=== PATIENT | female | born 1985 | race Caucasian/White ===

== ENCOUNTER → 2022-08-23 16:40 | Outpatient (CLI) | payer BC, SELFPAY ==
--- NOTE | ~2022-08-23 | XR_ITS ---
XR cervical spine 4-5V INDICATION: Cervical brachial syndrome TECHNIQUE: 7 views of the cervical spine. FINDINGS: No prior studies for comparison. The cervical spine is visualized to the cervicothoracic junction. There is no prevertebral soft tiss ue swelling, listhesis, or loss of vertebral body height. Intervertebral disc spaces are normal. Th e osseous central canal is patent. No displaced cervical spine fractures are identified. IMPRESSION: 1. No acute osseous abnormality of the cervical spine. Reviewed, dictated and finalized at location A.
== END ==
DX: M53.1 Cervicobrachial syndrome (principal); M54.2 Cervicalgia
CPT/HCPCS: 72050

== ENCOUNTER 2022-12-16 08:39 | Emergency (ER) | payer BC, SELFPAY ==
[2022-12-16 08:44] VITALS: BP 122/82; PULSE 75; RESP 16; TEMP 36.8; O2SAT 100
--- NOTE | 2022-12-16 09:59 | ED.URI ---
HPI - URI/Sore Throat General Chief Complaint: Upper Respiratory Infection Stated Complaint: Sinus Pain Time Seen by Provider: 12/16/22 09:59 Source: patient, RN notes reviewed and old records reviewed Mode of arrival: ambulatory Limitations: no limitations History of Present Illness HPI Narrative: 37 year old female who presents to [facility] care with complaints of sinus congestion and drainage with increased symptoms for the past 2 day with headache, ears feel full. Patient reports she has had intermittent sinus congestion and drainage since October which will get a little better then gets worse,sinus drainage greenish and yellowish now. Has been using nasal saline and taking Claritin without improveemnt. MD elicited complaint: cough, rhinorrhea, nasal congestion and other (headache) Pertinent past history: asthma (exercise induced) Onset (ago): week(s) (since last of October with increased symptoms past 2 days) Pain scale (0-10): 3 Description of mucous: yellow, green and other Treatments prior to arrival: other (Claritin and saline nasal spray) Related Data Allergies Allergy/AdvReac Type Severity Reaction Status Date / Time Sulfa (Sulfonamide Allergy Intermediate HIVES Verified 12/16/22 08:46 Antibiotics) oxycodone Allergy Mild ITCHING Verified 12/16/22 08:46 Review of Systems Review of Systems: CONSTITUTIONAL: Denies malaise, chills, sweats, or fever. EYES: Denies visual changes, redness, or discharge. ENT: Reports rhinorrhea, congestion, sinus pain, bilateral ear pressure,scratchy throat. CARDIOVASCULAR: Denies chest pain, palpitations, or edema. RESPIRATORY: Reports cough.? Denies dyspnea. GASTROINTESTINAL: Denies abdominal pain, nausea, vomiting, diarrhea SKIN: Denies rash or itching. MUSCULOSKELETAL: Denies myalgia. NEUROLOGIC: reports headache. All systems reviewed & are unremarkable except as noted in HPI and below PMFSH Surgical History Surgical History (Updated 12/18/22 @ 14:18 by Kat Pruett NP) History of ovarian resection wedge resection History of tonsillectomy Hx of cholecystectomy Social History Social History (Updated 12/18/22 @ 14:19 by Kat Pruett NP) Smoking status: Never smoker Alcohol intake: current Alcohol use details: social Substance use: never Gender identity (if verbalized by the patient): Female Comments At time of signature, agree with nursing past medical, surgical, social and family history. There is no relevant family history pertinent to the presenting complaint Exam Narrative: GENERAL: Well-appearing, well-nourished, and in no acute distress. HEAD: Normocephalic EYES: PERRLA, conjunctivae clear ENT: Nares clear, turbinates edematous and erythematous, clear yellow discharge. Mucous membranes moist.facial pressure with headache. TM pearly anderson with dull light reflex bilaterally; no tragal tenderness fullness pressure to ears Oropharynx erythematous without lesions. Tonsils notpresent no throat exudate, no drooling, no hoarseness, no trismus, uvula midline.post nasal drainage NECK: Supple. No lymphadenopathy CHEST: Clear to auscultation, breath sounds equal. No wheezing, rhonchi, rales, or stridor. No respiratory distress, speaks in full sentences.dry cough, SAO2 100% on room air HEART: Regular rate and rhythm. No murmur heard. SKIN: Warm, dry, no rash. NEURO: Alert and oriented x3. PSYCH: Normal mood and affect Course Course Emergency Course: Patient is aware of diagnosis, understands and agrees to treatment plan.? Anticipatory guidance given.? Patient agrees to follow-up as directed and is aware of reasons to seek care at the emergency department. Portions of this record may have been created with voice recognition software Level of Care: Express Care Visit Vital Signs Vital signs: Vital Signs Temperature 36.8 C 12/16/22 08:44 Pulse Rate 75 12/16/22 08:44 Respiratory Rate 16 12/16/22 08:44 Blood Pres
== END 2022-12-16 10:20 | disposition home or self-care (01) ==
PROVIDERS: Emergency Provider Registered Nurse; PCP Physician Assistant
DX: J32.9 Chronic sinusitis, unspecified (principal)
CPT/HCPCS: 99203; G0463

== ENCOUNTER 2023-09-05 15:34 | Outpatient (CLI) | payer BC, SELFPAY ==
--- NOTE | ~2023-09-05 | US_ITS ---
EXAMINATION: US soft tissue LE RT DATE: 09/05/2023 15:51 INDICATION: Right lower lobe nodule of subcutaneous tissue. TECHNIQUE: Multiple grayscale and Doppler ultrasound images of the right lower limb were obtained. COMPARISON: None FINDINGS: There is no abnormal mass in the patient's area of concern in anterior right lower leg. IMPRESSION: 1. No abnormal mass in the patient's area of concern in anterior right lower leg. Reviewed, dictated and finalized at location E. IMPRESSION: 1. No abnormal mass in the patient's area of concern in anterior right lower le g.
== END 2023-09-05 15:35 ==
LOC: MICIMG 15:35
PROVIDERS: PCP Physician Assistant; Visit Provider Physician Assistant
DX: R22.42 Localized swelling, mass and lump, left lower limb (principal)
CPT/HCPCS: 76882

== ENCOUNTER 2023-10-17 12:51 | Outpatient (CLI) | payer BC, SELFPAY ==
--- NOTE | ~2023-10-17 | MR_ITS ---
EXAMINATION: MR lower leg RT wo/w con DATE: 10/17/2023 13:43 INDICATION: Subcutaneous nodule at the left lower leg TECHNIQUE: Magnetic resonance imaging (MRI) of the left lower leg was performed without and with 15 m L Multihance intravenous contrast. A couple markers were placed over the region of concern. Sequence s included axial, sagittal and coronal T1-weighted FSE and fluid sensitive FSE STIR. Precontrast axia l T1-weighted FS FSE and post contrast axial, sagittal and coronal T1-weighted FS FSE were also obtai emerita. The contralateral left lower leg is included on the coronal images. COMPARISON: Ultrasound dated 09/05/2023 FINDINGS: Bone marrow signal is normal throughout. No reactive edema, fracture or pathologic marrow replacing p rocess. There is nonspecific mild increased fluid signal overlying the bilateral gastrocnemius muscle s without abnormal enhancement. Musculature in the bilateral lower legs is otherwise unremarkable wit h no evident atrophy. Neurovascular structures are unremarkable with no evidence of venous thrombosis . A few very small perforating vessels extending through the superficial muscular fascia in the regio n underlying the 2 markers. No abnormal masses, fluid collections or abnormally enhancing lesions rima ntified. IMPRESSION: 1. A few small perforating vessels in the region of reported subcutaneous nodule at the left lower le g . No abnormal masses, fluid collections or abnormal enhancement in the region of concern. 2. Relatively symmetric mild increased fluid signal in the bilateral gastrocnemius muscles which is a n incidental finding in an asymptomatic individual is most likely related to recent exertion. Reviewed, dictated and finalized at location A. ED WALL FOREMAN IMPRESSION: 1. A few small perforating vessels in the region of reported subcutaneous nodul e at the left lower leg . No abnormal masses, fluid collections or abnormal enh ancement in the region of concern. 2. Relatively symmetric mild increased fluid signal in the bilateral gastrocnem ius muscles which is an incidental finding in an asymptomatic individual is mos t likely related to recent exertion.
== END 2023-10-17 12:52 ==
PROVIDERS: PCP Physician Assistant; Visit Provider Physician Assistant
DX: R22.42 Localized swelling, mass and lump, left lower limb (principal)
CPT/HCPCS: 73720; A9577

== ENCOUNTER → 2023-12-02 13:50 | Outpatient (CLI) | payer BC, SELFPAY ==
--- NOTE | ~2023-12-02 | US_ITS ---
EXAMINATION: US pelvic complete DATE: INDICATION: Pelvic pain TECHNIQUE: Multiple transabdominal sonographic images of the pelvis were obtained. COMPARISON: None. FINDINGS: Uterus: 10.2 x 4.1 x 5.2 cm. Endometrial complex measures 4 mm. Right Ovary: 2.9 x 1.5 x 2.8 cm. Vascular flow is present. No adnexal mass. Left Ovary: 2.5 x 1.4 x 1.5 cm. Vascular flow is present. No adnexal mass. There is no free fluid in the pelvis. IMPRESSION: Normal transabdominal pelvic sonogram findings. Reviewed, dictated and finalized at location K. PHONE COIN BOX COLLECTOR
== END ==
PROVIDERS: PCP Nurse Practitioner; Visit Provider Nurse Practitioner
DX: R10.2 Pelvic and perineal pain (principal)
CPT/HCPCS: 76856

== ENCOUNTER 2025-01-31 15:14 | Outpatient (CLI) | payer BC, SELFPAY ==
--- NOTE | ~2025-01-31 | US_ITS ---
EXAMINATION: US thyroid DATE: 01/31/2025 15:33 INDICATION: Abnormal thyroid function tests. Thyroid antibodies. TECHNIQUE: Multiple ultrasound images of the thyroid were obtained. COMPARISON: None. FINDINGS: The right thyroid lobe measures 5.3 x 1.5 x 1.5 cm. The left thyroid lobe measures 4.7 x 1 0.5, 0.7 cm. In the right thyroid lobe, there is an 8 mm mixed cystic and solid, hyperechoic, wider than tall nodule with smooth margin without echogenic foci (TI-RADS TR2). In the left thyroid lobe, there is a 6 mm mixed cystic and solid, hypoechoic, wider than tall nodule with smooth margin and macrocalcific ation (TR4). IMPRESSION: 1. Small thyroid nodules, likely not clinically significant. No follow-up is needed. Reviewed, dictated and finalized at location B. IMPRESSION: 1. Small thyroid nodules, likely not clinically significant. No follow-up is ne eded.
== END 2025-01-31 15:15 | disposition home or self-care (01) ==
PROVIDERS: PCP Physician Assistant; Visit Provider Physician Assistant
DX: E07.81 Sick-euthyroid syndrome (principal); E04.2 Nontoxic multinodular goiter
CPT/HCPCS: 76536

== ENCOUNTER 2025-05-01 09:22 | Outpatient (CLI) | payer BC, SELFPAY ==
--- NOTE | ~2025-05-01 | MM_ITS ---
EXAMINATION: MM screening jonnie BI w sylwia HISTORY: Screening TECHNIQUE: Craniocaudal and mediolateral oblique 3-D tomosynthesis images were obtained and synthetic 2-D images were generated. CAD analysis was submitted and interpreted. COMPARISON: No prior mammogram is available for comparison at this institution. BREAST PARENCHYMAL COMPOSITION: Not dense: There are scattered areas of fibroglandular density. FINDINGS: There is a focal asymmetry superiorly in the right breast on MLO view, not appreciated on C C image. There are no suspicious masses, calcifications or architectural distortion in the left breas t to suggest malignancy. IMPRESSION: 1. Focal right breast asymmetry superiorly on MLO view. 2. Additional mammographic views and possible breast ultrasound are recommended. BI-RADS Category 0: Incomplete: Needs additional imaging evaluation. Reviewed, dictated and finalized at location [] IMPRESSION: 1. Focal right breast asymmetry superiorly on MLO view. 2. Additional mammographic views and possible breast ultrasound are recommended . BI-RADS Category 0: Incomplete: Needs additional imaging evaluation.
--- OUTSIDE RECORDS SUMMARY | 2025-05-01 10:13 | XMS_ITS | Clinical Summary ---
Author Organization [facility] Address [address] [place] [address] Phone Care Team Providers Care Seasoning Mixer Name Role Phone Maye Chen Primary Care Provider Allergies Active Allergy Reactions Criticality Noted Date Comments Oxycodone Itching Low 02/06/2018 Sulfasalazine Hives High 03/03/2016 Medications raNITIdine (ZANTAC) 150 mg tablet Take 150 mg by mouth every 12 hours. 6 7 Active ergocalciferol (VITAMIN D2) 50,000 unit capsule Take 50,000 Units by mouth every 7 days . 3 7 Active LEVOTHYROXINE 25 mcg tabletIndications:S ubclinical hypothyroidism TAKE 1 TABLET(25 MCG) BY MOUTH DAILY BOTTOM HOOP DRIVER 30 Tablet 8 Active Active Problems No known active problems Family History Medical History Relation Name Comments Diabetes Maternal Grandmother type II Heart Disease Maternal Grandmother Stroke Paternal Grandfather Breast Cancer Neg Hx Colon Cancer Neg Hx Ovarian Cancer Neg Hx Uterine Cancer Neg Hx Relation Name Status Comments Maternal Grandmother Paternal Grandfather Social History Tobacco Use Types Packs/Day Years Used Date Smoking Tobacco: Never Smokeless Tobacco: Never Alcohol Use Standard Drinks/Week Comments No 0 (1 standard drink = 0.6 oz pur e alcohol) Comments No Sex and Gender Information Value Date Recorded Sex Assigned at Not on file Legal Sex Female 4:21 PM ARMY RANGER Gender Identity Not on file Sexual Orientation Not on file Last Filed Vital Signs Vital Sign Reading Time Taken Comments Blood Pressure 118/80 10/01/2019 10:23 AM ARMY RANGER Pulse 93 08/27/2019 1:54 PM CDT Temperature 36.6 C (97.9 F) 08/27/2019 1:36 PM CDT Respiratory Rate 17 08/27/2019 1:54 PM CDT Oxygen Saturation 98% 08/27/2019 1:54 PM CDT Inhaled Oxygen Concentration - - Weight 83.5 kg (184 lb) 10/01/2019 10:23 AM ARMY RANGER Height 165.1 cm (5' 5) 10/01/2019 10:23 AM ARMY RANGER Body Mass Index 30.62 10/01/2019 10:23 AM ARMY RANGER Plan of Treatment Health Maintenance Due Date Last Done Comments DTAP/TDAP/TD VACCINES (1 - Tdap) 2004 HEPATITIS B VACCINES (1 of 3 - 19+ 3-dose series) 2004 HPV/Cotest (21-29) 2006 CERVICAL CANCER SCREENING 2015 HPV/Cotest (30-65) 2015 PAP SMEAR 2015 INFLUENZA VACCINE (#1) 2024 BREAST CANCER SCREENING 2025 HPV VACCINES Aged Out No longer eligi ble based on patient's age to complete this topic Medical Devices Implanted Type Area Handle Assembler Device Identifier Shelf Expiration Date Model / Serial / Lot Barrier Seprafilm 5x6in [id number] - [id number] Implanted:Qty : 1 on 02/10/2018 by Farhad Burks MD at [facility] Adhesion Barrier N/A: Abdomen [employer] [id number] 12/21/2019 [id number] / / [id number] Description:soaked in 200ml of saline and 100mg solu-cortef Insurance BS BLUE ACCESS/TRUE BLUE PPO RX [employer] Member Subscriber Plan / Payer (Ef fective for All Dates) Name:Odalys Raymond Relation to Subscriber:Self Name:Odalys Raymond Subscriber ID:Not on file Payer ID:Not on file Group ID:[id number] Type:RX Commercial Address: [address] Advance Directives For more information, please contact: [phone] * Full Code (Latest Code Status on File) Date Activated Date Inactivated Comments 08/27/2019 1:35 PM 08/27/2019 4:14 PM * Full Code Date Activated Date Inactivated Comments 02/10/2018 4:26 PM 02/11/2018 5:34 AM * Full Code Date Activated Date Inactivated Comments 02/10/2018 10:48 AM 02/10/2018 4:26 PM Care Teams Seasoning Mixer Relationship Specialty Start Date End Date Maye Chen PA PCP - General Physician Frame Expander 12/26/17
--- OUTSIDE RECORDS SUMMARY | 2025-05-01 10:13 | XMS_ITS | Referral Summary ---
Author Organization [facility] Address [address] [place] [address] Care Team Providers Care Riprap Man Name Role Phone Maye Chen Primary Care Pr ovider Allergies Active Allergy Reactions Criticality Noted Date Comments Sulfa (Sulfonamide Antibiotics) Hives Reaction: HIVES, Medications lisdexamfetamin e (VYVANSE) 30 mg capsule Take 1 capsule (30 mg total) by mouth every morning Active Active Problems Problem Noted Date Diagnosed Date Lump of skin of right lower extremity 12/21/2023 Assessment & Plan (12/21/2023 9:[address] SWEEPER OPERATOR): Small bumps or lumps can be palpated under the skin along the bony prominence of the right anterior woodard can also be felt although smaller to the left anterior woodard. These are asymptomatic. Patient has no medical history concerning of cancer DVT or blood clotting disorders other than her lipoprotein deficiency disorder. Not concern for any lipoma or dermoid. This is likely patient's anatomy and no concerns at this time. Previous MRI and follow-up with orthopedics has also yielded negative results. Plan: Follow-up as needed. 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 Overview (02/24/2017): Lipoprotein deficiency Social History Tobacco Use Types Packs/Day Years Used Date Smoking Tobacco: Never Alcohol Use Standard Drinks/Week Comments No 0 (1 standard drink = 0.6 oz pur e alcohol) Comments Unknown Sex and Gender Information Value Date Recorded Sex Assigned at Not on file Legal Sex Female 11:[address] SWEEPER OPERATOR Gender Identity Not on file Sexual Orientation Not on file Last Filed Vital Signs Vital Sign Reading Time Taken Comments Blood Pressure 127/93 12/21/2023 8:[address] SWEEPER OPERATOR Pulse 87 12/21/2023 8:[address] SWEEPER OPERATOR Temperature - - Respiratory Rate - - Oxygen Saturation 100% 12/21/2023 8:[address] SWEEPER OPERATOR Inhaled Oxygen Concentration - - Weight 82.1 kg (181 lb) 08/24/2017 10:35 AM CDT Height 165.1 cm (5' 5) 08/24/2017 10:35 AM CDT Body Mass Index 30.12 08/24/2017 10:35 AM CDT Plan of Treatment Not on file Insurance [email or web address] [place] [email or web address] [place] Care Teams Riprap Man Relationship Specialty Start Date End Date Maye Chen PA PCP - General 07/23/17
--- OUTSIDE RECORDS SUMMARY | 2025-05-01 10:13 | XMS_ITS | Clinical Summary ---
Author Organization [facility] Address [address] [place] [address] Care Team Providers Care Financial Systems Administrator Name Role Phone Maye Chen Primary Care Pr ovider Allergies Active Allergy Reactions Criticality Noted Date Comments Sulfa (Sulfonamide Antibiotics) Hives Reaction: HIVES, Medications lisdexamfetamin e (VYVANSE) 30 mg capsule Take 1 capsule (30 mg total) by mouth every morning Active Active Problems Problem Noted Date Diagnosed Date Lump of skin of right lower extremity 12/21/2023 Assessment & Plan (12/21/2023 9:06 AM ELECTRIC TAPE SLITTER): Small bumps or lumps can be palpated [...] deficiency disorder 06/19/2012 Overview (02/24/2017): Lipoprotein deficiency Surgical History Surgery Date Site/Laterality Comments TONSILLECTOMY 1995 Tonsillectomy TONSILLECTOMY 1994 Tonsillectomy [place] TONSILLECTOMY & ADENOIDEC MAIK <AGE 12 Tonsillectomy With Adenoidectomy - 1995 (Added by TW Conv) [place] CHOLECYSTECTOMY Cholecystectomy - laparascopic [facility], 03/2016 (Added by TW Conv) Medical History Medical History Date Comments Asthma 1999 Asthma Hx Other Medical Well Woman Family History Medical History Relation Name Comments Hyperlipidemia Father 2 Hyperlipidemi a; Liver cancer Maternal Grandfather 2 Cance r -liver; Cause of : Cancer -liver Diabetes Maternal Grandmother 2 Diabe olvin mellitus; Heart failure Maternal Grandmother 2 Mateo estive heart failure; Hypertension Maternal Grandmother 2 Hyper tension; Other Maternal Grandmother 2 hear t; Cause of : heart Other Mother 2 spells of shake s, sweats; Diabetes type II Other 1 Family hist ory of type 2 diabetes mellitus - Relation: Grandmother (Added by TW Conv) Heart disease Other 1 Family history of cardiac disorder - Relation: Grandmother (Added by TW Conv) Hypertension Other 1 Family history of hypertension - Relation: Grandmother (Added by TW Conv) Heart disease Other 2 Family history of cardiac disorder - Relation: Aunt (Added by TW Conv) Hypertension Other 2 Family history of hypertension - Relation: Aunt (Added by TW Conv) Hypertension Other 3 Family history of hypertension - Relation: Uncle (Added by TW Conv) Other Paternal Grandfather 2 had a slight stroke; Other Paternal Grandmother 2 hear t problems; Relation Name Status Comments Father 1 Alive Father 2 Maternal Grandfather 1 (Age 78) Maternal Grandfather 2 Maternal Grandmother 1 (Age 86) Maternal Grandmother 2 Mother 1 Alive Mother 2 Other 1 Other 2 Other 3 Paternal Grandfather 1 Alive Paternal Grandfather 2 Paternal Grandmother 1 Alive Paternal Grandmother 2 Social History Tobacco Use Types Packs/Day Years Used Date Smoking Tobacco: Never Alcohol Use Standard Drinks/Week Comments No 0 (1 standard drink = 0.6 oz pur e alcohol) Comments Unknown Sex and Gender Information Value Date Recorded Sex Assigned at Not on file Legal Sex Female 11:58 AM ELECTRIC TAPE SLITTER Gender Identity Not on file Sexual Orientation Not on file Obstetrics History Last Filed Vital Signs Vital Sign Reading Time Taken Comments Blood Pressure 127/93 12/21/2023 8:51 AM ELECTRIC TAPE SLITTER Pulse 87 12/21/2023 8:51 AM ELECTRIC TAPE SLITTER Temperature - - Respiratory Rate - - Oxygen Saturation 100% 12/21/2023 8:51 AM ELECTRIC TAPE SLITTER Inhaled Oxygen Concentration - - Weight 82.1 kg (181 lb) 08/24/2017 10:35 AM CDT Height 165.1 cm (5' 5) 08/24/2017 10:35 AM CDT Body Mass Index 30.12 08/24/2017 10:35 AM CDT Plan of Treatment Health Maintenance Due Date Last Done Comments Breast Cancer Screening-Mammogram 1985 Cervical Cancer Screening 1985 Depression Screening 1985 Hepatitis C Screening 1985 Varicella Vaccines (1 of 2 - 13+ 2-dose series) 1998 Hepatitis B Screening 2003 Regular Well Visit/Exam 18-64 2003 DTaP/Tdap/Td Vaccine (2 - Td or Tdap) 11/21/2020 11/21/2010 Influenza Vaccine (Season Ended) 2025 HPV Vaccines Aged Out No longer eligi ble based on patient's age to complete this topic Pneumococcal vaccine <65 Aged Out No longer eligible based on patient's age to complete this topic Insurance [facility] Care Teams Financial Systems Administrator Relationship Specialty Start Date End Date Maye Chen PA PCP - General 07/23/17
--- OUTSIDE RECORDS SUMMARY | 2025-05-01 10:14 | XMS_ITS | Data Portability ---
Author Organization [facility] Kathia Address [address] [facility] [place] [address] Care Team Providers Care Hassock Maker Name Role Phone ABRIL PETER OTHER RONEY GREEN Primary Care Provider Assessment No assessment recorded. Plan of Treatment Reminders Order Date Submit Date Provider Last Modified By Organization Details Last Modified Time Details Appointments VIDEO VISIT 15 2024 01:15P SELENE Arreguin Not available Not available Not available Lab progester one, serum 2024 025 OLY [facility], [address], [place], [address], 12/13/2024 09:09:16 estrogen, total, serum 2024 025 OYL [facility], [address], [place], [address], 12/13/2024 09:09:17 testoster one, total, serum 2024 025 OLY [facility], [address], [place], [address], 12/13/2024 09:09:15 whole egg ige, serum 2024 025 OLY [facility], [address], [place], [address], 12/13/2024 09:09:14 TSH + free T4, serum 2024 025 OLY [facility], [address], [place], [address], 12/13/2024 09:09:12 T3, free, serum or plasma 2024 025 OLYFABIANO [facility], [address], [place], [address], 12/13/2024 09:09:20 thyropero xidase Ab, serum 2024 025 OLY [facility], [address], [place], [address], 12/13/2024 09:09:18 iron + TIBC + ferritin, serum 2023 024 OLY Lang, [address], [place], [address], 10/03/2024 06:37:44 vitamin D, 25-hydrox y, total, serum 2023 024 OLY Lang, [address], [place], [address], 10/03/2024 06:37:45 TSH + free T4, serum 2023 024 OLY Lang, [address], [place], [address], 10/03/2024 06:37:38 CMP, serum or plasma 2023 024 OLY Lang, [address], [place], [address], 10/03/2024 06:37:39 CBC w/ auto diff 2023 024 OLYFABIANO Lang, [address], [place], [address], 10/03/2024 06:37:43 vitamin B12 + folate, serum or blood 2023 024 OLY [facility], [address], [place], [address], 10/03/2024 06:37:40 HbA1c (hemoglob in A1c), blood 2023 024 OLY [facility], [address], [place], [address], 10/03/2024 06:37:42 lipid panel, serum 2023 024 OLY [facility], [address], [place], [address], 10/03/2024 06:37:37 Referral None recorded. Procedures None recorded. Surgeries None recorded. Imaging None recorded. Medication Orders Vyvanse 30 mg capsule 2023 024 [id number], [address], [place], [place], [id number], 09/17/2024 09:35:31 Vyvanse 30 mg capsule 2023 024 [email or web address] #[id number], [address], [place], [place], [id number], 09/17/2024 09:35:31 Patient TargetsNo targets recorded. Patient Instructions Encounter Date Encounter Id Patient Instructions Last Modified By Organization Details Last Modified Time 08/29/2024 [id number] A healthy lifestyle: care instructions [email or web address] Not available 08/29/2024 17:30:51 Reason for Referral None Reported. Results Created Date Observation Date Name Description Value Unit Range Abnormal Flag Note LastModifiedBy Organization Detail LastModifiedTime 10/01/20 24 10/02/2024 LIPID PANEL W/ CHOL/ HDL RATIO cholesterol, total 215 mg/dL 100-19 9 above high normal Not Available [facility] ([facility]) [address] [facility], [place], [address], 10/03/2024 06:37:37 10/01/20 24 10/02/2024 LIPID PANEL W/ CHOL/ HDL RATIO triglyceride s 152 mg/dL 0-149 above high normal Not Available [facility] ([facility]) [address] [place], [address], 10/03/2024 06:37:37 10/01/20 24 10/02/2024 LIPID PANEL W/ CHOL/ HDL RATIO HDL cholesterol 44 mg/dL >39 Not Available [facility] ([facility]) [address] [place], [address], 10/03/2024 06:37:37 10/01/20 24 10/02/2024 LIPID PANEL W/ CHOL/ HDL RATIO VLDL cholesterol shannan 27 mg/dL 5-40 Not Available [facility] ([facility]) [address] [place], [address], 10/03/2024 06:37:37 10/01/20 24 10/02/2024 LIPID PANEL W/ CHOL/ HDL RATIO LDL chol calc ([facility]) 144 mg/dL 0-99 above high normal Not Available [facility] ([facility]) [address] [place], [address], 10/03/2024 06:37:37 10/01/20 24 10/02/2024 LIPID PANEL W/ CHOL/ HDL RATIO T. chol/HDL ratio 4.9 ratio 0.0-4. 4 above high normal T. Chol/ HDL Ratio Men Women 1/2 Avg.R isk 3.4 3.3 Avg.R isk 5.0 4.4 2X Avg.R isk 9.6 7.1 3X Avg.R isk 23.4 11.0 Not Available [facility] ([facility]) [address] [place], [address], 10/03/2024 06:37:37 10/01/20 24 10/02/2024 TSH+F REE T4 TSH 2.710 uIU/m L 0.450- 4.500 Not Available [facility] ([facility]) [address] [place], [address], 10/03/2024 06:37:38 10/01/20 24 10/02/2024 TSH+F REE T4 T4,free(dire ct) 0.95 NG/dL 0.82-1 .77 Not Available [facility] ([facility]) [address] [place], [address], 10/03/2024 06:37:38 10/01/20 24 10/02/2024 COMP. METAB OLIC PANEL (14) glucose 83 mg/dL 70-99 Not Available [facility] ([facility]) [address] [place], [address], 10/03/2024 06:37:39 10/01/20 24 10/02/2024 COMP. METAB OLIC PANEL (14) BUN 8 mg/dL 6-20 Not Available [facility] ([facility]) [address] [place], [address], 10/03/2024 06:37:39 10/01/20 24 10/02/2024 COMP. METAB OLIC PANEL (14) creatinine 0.73 mg/dL 0.57-1 .00 Not Available [facility] ([facility]) [address] [place], [address], 10/03/2024 06:37:39 10/01/20 24 10/02/2024 COMP. METAB OLIC PANEL (14) eGFR 107 mL/mi n/1.7 3 >59 Not Available [facility] ([facility]) [address] [place], [address], 10/03/2024 06:37:39 10/01/20 24 10/02/2024 COMP. METAB OLIC PANEL (14) BUN/creatini ne ratio 11 -23 Not Available [facility] ([facility]) [address] [place], [address], 10/03/2024 06:37:39 10/01/20 24 10/02/2024 COMP. METAB OLIC PANEL (14) sodium 139 mmol/ L 134-14 4 Not Available [facility] ([facility]) [address] [place], [address], 10/03/2024 06:37:39 10/01/20 24 10/02/2024 COMP. METAB OLIC PANEL (14) potassium 4.3 mmol/ L 3.5-5. 2 Not Available [facility] ([facility]) [address] [place], [address], 10/03/2024 06:37:39 10/01/20 24 10/02/2024 COMP. METAB OLIC PANEL (14) chloride 103 mmol/ L 96-106 Not Available [facility] ([facility]) [address] [facility] [place], [address], 10/03/2024 06:37:39 10/01/20 24 10/02/2024 COMP. METAB OLIC PANEL (14) carbon dioxide, total 23 mmol/ L 20-29 Not Available [facility] ([facility]) [address] [facility] [place], [address], 10/03/2024 06:37:39 10/01/20 24 10/02/2024 COMP. METAB OLIC PANEL (14) calcium 9.4 mg/dL 8.7-10 .2 Not Available [facility] ([facility]) [address] [facility] [place], [address], 10/03/2024 06:37:39 10/01/20 24 10/02/2024 COMP. METAB OLIC PANEL (14) protein, total 6.7 g/dL 6.0-8. 5 Not Available [facility] ([facility]) [address] [facility] [place], [address], 10/03/2024 06:37:39 10/01/20 24 10/02/2024 COMP. METAB OLIC PANEL (14) albumin 4.4 g/dL 3.9-4. 9 Not Available [facility] ([facility]) [address] [facility], [place], [address], 10/03/2024 06:37:39 10/01/20 24 10/02/2024 COMP. METAB OLIC PANEL (14) globulin, total 2.3 g/dL 1.5-4. 5 Not Available [facility] ([facility]) [address] [place], [address], 10/03/2024 06:37:39 10/01/2010/02/2024 COMP. METAB OLIC PANEL (14) bilirubin, total 0.5 mg/dL 0.0-1. 2 Not Available [facility] ([facility]) [address] [place], [address], 10/03/2024 06:37:39 10/01/20 24 10/02/2024 COMP. METAB OLIC PANEL (14) alkaline phosphatase 71 IU/L 44-121 Not Available [facility] ([facility]) [address] [place], [address], 10/03/2024 06:37:39 10/01/20 24 10/02/2024 COMP. METAB OLIC PANEL (14) AST (SGOT) 18 IU/L 0-40 Not Available [facility] ([facility]) [address] [place], [address], 10/03/2024 06:37:39 10/01/20 24 10/02/2024 COMP. METAB OLIC PANEL (14) ALT (SGPT) 15 IU/L 0-32 Not Available [facility] ([facility]) [address] [place], [address], 10/03/2024 06:37:39 10/01/20 24 10/02/2024 VITAM IN B12 AND FOLAT E vitamin B12 562 pg/mL 232-12 45 Not Available [facility] ([facility]) [address] [facility], [place], [address], 10/03/2024 06:37:40 10/01/20 24 10/02/2024 VITAM IN B12 AND FOLAT E folate (folic acid), serum 7.1 NG/mL >3.0 A serum folat e aman ntrat ion of less than 3.1 ng/mL is consi dered to repre sent clini shannan defic iency . Not Available [facility] ([facility]) [address] [facility], [place], [address], 10/03/2024 06:37:40 10/01/20 24 10/02/2024 HEMOG LOBIN A1C hemoglobin A1C 5.1 % 4.8-5. 6 Predi abete s: 5.7 - 6.4 Diabe olvin: >6.4 Glyce jose daniel contr ol for adult s with diabe olvin: <7.0 Not Available [facility] ([facility]) [address] [facility], [place], [address], 10/03/2024 06:37:41 10/01/20 24 10/02/2024 CBC WITH DIFFE RENTI AL/PL ATELE T WBC 6.1 x10e3 /uL 3.4-10 .8 Not Available [facility] ([facility]) [address] [facility], [place], [address], 10/03/2024 06:37:43 10/01/20 24 10/02/2024 CBC WITH DIFFE RENTI AL/PL ATELE T RBC 4.78 x10e6 /uL 3.77-5 .28 Not Available [facility] ([facility]) [address] [facility], [place], [address], 10/03/2024 06:37:43 10/01/20 24 10/02/2024 CBC WITH DIFFE RENTI AL/PL ATELE T hemoglobin 14.5 g/dL 11.1-1 5.9 Not Available [facility] ([facility]) [address] [facility], [place], [address], 10/03/2024 06:37:43 10/01/20 24 10/02/2024 CBC WITH DIFFE RENTI AL/PL ATELE T hematocrit 43.4 % 34.0-4 6.6 Not Available [facility] ([facility]) [address] [facility], [place], [address], 10/03/2024 06:37:43 10/01/20 24 10/02/2024 CBC WITH DIFFE RENTI AL/PL ATELE T MCV 91 fL 79-97 Not Available [facility] ([facility]) [address] [facility], [place], [address], 10/03/2024 06:37:43 10/01/20 24 10/02/2024 CBC WITH DIFFE RENTI AL/PL ATELE T MCH 30.3 pg 26.6-3 3.0 Not Available [facility] ([facility]) [address] [facility], [place], [address], 10/03/2024 06:37:43 10/01/20 24 10/02/2024 CBC WITH DIFFE RENTI AL/PL ATELE T MCHC 33.4 g/dL 31.5-3 5.7 Not Available [facility] ([facility]) [address] [facility], [place], [address], 10/03/2024 06:37:43 10/01/20 24 10/02/2024 CBC WITH DIFFE RENTI AL/PL ATELE T RDW 12.7 % 11.7-1 5.4 Not Available [facility] ([facility]) [address] [place], [address], 10/03/2024 06:37:43 10/01/20 24 10/02/2024 CBC WITH DIFFE RENTI AL/PL ATELE T platelets 255 x10e3 /uL 150-45 0 Not Available [facility] ([facility]) [address] [facility], [place], [address], 10/03/2024 06:37:43 10/01/20 24 10/02/2024 CBC WITH DIFFE RENTI AL/PL ATELE T neutrophils 57 % notest ab. Not Available [facility] ([facility]) [address] [facility], [place], [address], 10/03/2024 06:37:43 10/01/20 24 10/02/2024 CBC WITH DIFFE RENTI AL/PL ATELE T lymphs 34 % notest ab. Not Available [facility] ([facility]) [address] [facility], [place], [address], 10/03/2024 06:37:43 10/01/20 24 10/02/2024 CBC WITH DIFFE RENTI AL/PL ATELE T monocytes 7 % notest ab. Not Available [facility] ([facility]) [address] [facility], [place], [address], 10/03/2024 06:37:43 10/01/20 24 10/02/2024 CBC WITH DIFFE RENTI AL/PL ATELE T eos 1 % notest ab. Not Available [facility] ([facility]) [address] [facility], [place], [address], 10/03/2024 06:37:43 10/01/20 24 10/02/2024 CBC WITH DIFFE RENTI AL/PL ATELE T basos 1 % notest ab. Not Available [facility] ([facility]) [address] [facility], [place], [address], 10/03/2024 06:37:43 10/01/20 24 10/02/2024 CBC WITH DIFFE RENTI AL/PL ATELE T neutrophils (absolute) 3.5 x10e3 /uL 1.4-7. 0 Not Available [facility] ([facility]) [address] [facility], [place], [address], 10/03/2024 06:37:43 10/01/20 24 10/02/2024 CBC WITH DIFFE RENTI AL/PL ATELE T lymphs (absolute) 2.1 x10e3 /uL 0.7-3. 1 Not Available [facility] ([facility]) [address] [facility], [place], [address], 10/03/2024 06:37:43 10/01/20 24 10/02/2024 CBC WITH DIFFE RENTI AL/PL ATELE T monocytes(ab solute) 0.4 x10e3 /uL 0.1-0. 9 Not Available [facility] ([facility]) [address] [place], [address], 10/03/2024 06:37:43 10/01/20 24 10/02/2024 CBC WITH DIFFE RENTI AL/PL ATELE T eos (absolute) 0.1 x10e3 /uL 0.0-0. 4 Not Available [facility] ([facility]) [address] [place], [address], 10/03/2024 06:37:43 10/01/20 24 10/02/2024 CBC WITH DIFFE RENTI AL/PL ATELE T baso (absolute) 0.1 x10e3 /uL 0.0-0. 2 Not Available [facility] ([facility]) [address] [facility], [place], [address], 10/03/2024 06:37:43 10/01/20 24 10/02/2024 CBC WITH DIFFE RENTI AL/PL ATELE T immature granulocytes 0 % notest ab. Not Available [facility] ([facility]) [address] [place], [address], 10/03/2024 06:37:43 10/01/20 24 10/02/2024 CBC WITH DIFFE RENTI AL/PL ATELE T immature grans (abs) 0.0 x10e3 /uL 0.0-0. 1 Not Available [facility] ([facility]) [address] [place], [address], 10/03/2024 06:37:43 10/01/20 24 10/02/2024 FE+TI BC+FE R iron bind.cap.(TI BC) 257 ug/dL 250-45 0 Not Available [facility] ([facility]) [address] [facility], [place], [address], 10/03/2024 06:37:44 10/01/20 24 10/02/2024 FE+TI BC+FE R UIBC 181 ug/dL 131-42 5 Not Available [facility] ([facility]) [address] [place], [address], 10/03/2024 06:37:44 10/01/20 24 10/02/2024 FE+TI BC+FE R iron 76 ug/dL 27-159 Not Available [facility] ([facility]) [address] [place], [address], 10/03/2024 06:37:44 10/01/20 24 10/02/2024 FE+TI BC+FE R iron saturation 30 % 15-55 Not Available [facility] ([facility]) [address] [place], [address], 10/03/2024 06:37:44 10/01/20 24 10/02/2024 FE+TI BC+FE R ferritin 61 NG/mL 15-150 Not Available [facility] ([facility]) [address] [place], [address], 10/03/2024 06:37:44 10/01/20 24 10/03/2024 VITAM IN D, 25-HY DROXY vitamin D, 25-hydroxy 29.3 NG/mL 30.0-1 00.0 below low normal Vitam in D defic iency has been defin ed by the Insti tute of Medic ine and an Endoc rine Socie ty pract ice guide line as a level of serum 25-OH vitam in D less than 20 ng/mL (1,2) . The Endoc rine Socie ty went on to furth er defin e vitam in D insuf ficie ncy as a level betwe en 21 and 29 ng/mL (2). 1. IOM (Inst itute of Medic ine). 2010. Dieta ry refer ence jesús es for calci um and D. Soco manning [place]: [facility] Press . 2. Marlena sotelo [place], Jaki huggins [place], Bisch off-F errar i GARNETT, et al. Evalu ation , treat ment, and preve ntion of vitam in D defic iency : an Endoc rine Socie ty clini shannan pract ice guide line. JCEM. 2010; 96(7) :1911 -30. Not Available [facility] ([facility]) [address] [place], [address], 10/03/2024 06:37:45 12/10/19 25 12/11/2024 TSH+F REE T4 TSH 2.160 uIU/m L 0.450- 4.500 Not Available [facility] ([facility]) [address] [place], [address], 12/13/2024 09:09:12 12/10/19 25 12/11/2024 TSH+F REE T4 T4,free(dire ct) 0.93 NG/dL 0.82-1 .77 Not Available [facility] ([facility]) [address] [place], [address], 12/13/2024 09:09:12 12/10/19 25 12/13/2024 F245- IGE EGG, WHOLE [id number] egg, whole <0.10 kU/L class0 Level s of Speci fic IgE Class Descr iptio n of Class ----- ----- ----- ----- ----- -- ----- ----- ----- ----- ----- < 0.10 0 Negat grant 0.10 - 0.31 0/I Equiv ocal/ Low 0.32 - 0.55 I Low 0.56 - 1.40 II Moder ate 1.41 - 3.90 III High 3.91 - 19.00 IV Very High 19.01 - 100.0 0 V Very High >100. 00 Very High Not Available [facility] ([facility]) [address] [place], [address], 12/13/2024 09:09:14 12/10/19 25 12/11/2024 TESTO STERO NE testosterone 21 NG/dL 8-60 Not Available [facility] ([facility]) [address] [place], [address], 12/13/2024 09:09:15 12/10/19 25 12/11/2024 PROGE STERO NE progesterone 10.2 NG/mL Folli cular phase 0.1 - 0.9 Lutea l phase 1.8 - 23.9 Ovula tion phase 0.1 - 12.0 Pregn ant First trime ster 11.0 - 44.3 Secon d trime ster 25.4 - 83.3 Third trime ster 58.7 - 214.0 Postm enopa usal 0.0 - 0.1 Not Available [facility] ([facility]) [address] [place], [address], 12/13/2024 09:09:16 12/10/19 25 12/11/2024 ESTRO GENS, TOTAL estrogens, total 322 pg/mL Prepu carol l < 40 Femal e Cycle : 1-10 Days 16 - 328 11-20 Days 34 - 501 21-30 Days 48 - 350 Post- Menop ausal 40 - 244 Not Available [facility] ([facility]) [address] [place], [address], 12/13/2024 09:09:17 12/10/19 25 12/11/2024 THYRO ID ANTIB ODIES thyroid peroxidase (tpo) Ab 10 IU/mL 0-34 Not Available [facility] ([facility]) [address] [facility], [place], [address], 12/13/2024 09:09:18 12/10/19 25 12/11/2024 THYRO ID ANTIB ODIES thyroglobuli n antibody 1.0 IU/mL 0.0-0. 9 above high normal Thyro globu munir Antib victor manuel measu red by Rachel hein Coult er Metho dolog y It shoul d be noted that the prese nce of thyro globu munir antib odies may not be patho genic nor diagn ostic , espec ially at very low level s. The [facility] has found that four perce nt of indiv idual s witho ut evide nce of thyro id disea se or autoi mmuni ty will have posit grant TgAb level s up to 4 IU/mL . Not Available [facility] ([facility]) [address] [facility], [place], [address], 12/13/2024 09:09:18 12/10/19 25 12/11/2024 TRIIO DOTHY MOODY E (T3), FREE triiodothyro nine (T3), free 2.7 pg/mL 2.0-4. 4 Not Available [facility] ([facility]) [address] [facility], [place], [address], 12/13/2024 09:09:20 02/02/20 25 01/31/2025 US, thyro id No observ ation record ed. [facility] [address], [place], [address], 02/04/2025 16:50:44 Result Notes None recorded. Problems Name Problem SNOMED Code Status Onset Date Resolution Date Notes Provider Name and Address Organization Details Recorded Time Adult attention deficit hyperactivity disorder 319257418 Active 2023 SELENE Baires Attn: Missy g,[address] [facility], [place], [address], [facility] - [place] 08/19/202 4 14:40:52 Sebaceous cyst of skin of breast 49897538 Active 2023 SELENE Baires Attn: Accountin g,[address] [facility], [place], [address], [place] - [facility] 4 14:40:53 Long-term drug therapy Active 2023 SELENE Baires Attn: Accountin g,[address] [facility], [place], [address], [place] [facility] 4 14:40:56 Attention deficit hyperactivity disorder, 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, [place], [address], [place] [facility] 4 01:49:23 Body mass index 25-29 - overweight 178769809 Active 2023 Ramesh Carias MA null, [place] - [facility] 4 16:46:07 Hyperlipidemia 23091611 Active 2023 SELENE Baires Attn: Accountin g,[address] [facility], [place], [address], [place] [facility] 4 23:33:18 Overweight 814593342 Active 2023 SELENE Baires Attn: Accountin g,[address] [facility], [place], [address], [place] [facility] 4 23:33:36 Family history of hemochromatosi s 223460315 Active 2023 SELENE Baires Attn: Accountin g,[address] [facility], [place], [address], [place] [facility] 4 23:33:59 Vitamin D deficiency 81302908 Active 2023 SELENE Baires Attn: Accountin g,[address] [facility], [place], [address], [place] - [facility] 4 23:34:00 Cyst of thyroid 82461164 Active 2024 SELENE Baires Attn: Missy bustamante,[address], [place], [address], [facility] - SI 5 12:43:34 Anxiety 79256961 Active DENZEL Mackey, [place] - [place] 5 16:12:46 Problem Notes None recorded. Procedures Surgical History Date Name Laterality Status Provider Name and Address Organization Details Recorded Time 11/21/19 14 Date of Last Pap Smear completed Rachel Zhong [place] - [facility] 03/25/2015 16:13:07 11/21/19 13 Other completed Rachel Zhong MA [facility] 03/25/2015 16:12:46 11/21/18 95 Tonsillectomy completed Rachel Zhong [place] - [place] 03/25/2015 16:12:46 Imaging Results None recorded. Procedure Notes None recorded. Medical Equipment None Reported. Allergies Allergen ID Allergen Name Allergen Category Reaction Reaction Severity Criticality Documentation Date Start Date Code Code System Note Provider Name and Address Organization Details Recorded Time 039481 codeine medicatio n Not available Not available Not available 08/29/2024 2670 RxNorm DENZEL Moser, [place] - [place] 4 16:43:52 [id number] blackberr y allergeni c extract food Not available Not available Not available 08/29/2024 20714 8 RxNorm DENZEL Moser, [place] - [facility] 4 16:43:59 [id number] strawberr y allergeni c extract food Not available Not available Not available 08/29/2024 65942 4 RxNorm DENZEL Moser, [place] - [place] 4 16:44:04 76558 Substance with sulfonami de structure and antibacte rial mechanism of action (substanc e) medicatio n Not available Not available Not available 03/25/2015 54149 8003 SNOMED DENZEL Mackey, [place] - [place] 5 16:10:30 Medications Name Sig Start Date Stop Date Status Note LastModified by Organization Details LastModified Time Prescript ion - Prior Authoriza tion Request active Not Available Not Available Not Available atorvasta tin 40 mg tablet 02/27 completed Not Available Not Available Not Available ketoconaz ole 2 % shampoo 03/25 completed Not Available Not Available Not Available ibuprofen 800 mg tablet 03/25 completed Not Available Not Available Not Available clindamyc in HCl 150 mg capsule TAKE 3 CAPSULES BY MOUTH EVERY 8 HOURS FOR 7 DAYS 07/09 completed Patient stated she took her last dose this morning, 07-09-20 Not Available Not Available Not Available triamcino lone acetonide 0.1 % topical cream APPLY A THIN LAYER TO THE CORNERS OF THE MOUTH TOPICALL Y TWICE DAILY X 7 TO 10 DAYS 07/09 completed Patient stated she is no longer using this medicati on. Not Available Not Available Not Available Macrobid 100 mg capsule Take 1 capsule every 12 hours by oral route. 11/15 completed Not Available Not Available Not Available amoxicill in 875 mg tablet TAKE 1 TABLET BY MOUTH EVERY 12 HOURS FOR 10 DAYS 08/29 completed Not Available Not Available Not Available dicyclomi ne 20 mg tablet 03/25 completed Not Available Not Available Not Available methylpre dnisolone 4 mg tablets in a dose pack 03/25 completed Not Available Not Available Not Available paroxetin e ER 12.5 mg tablet,ex tended release 24 hr 02/27 completed Not Available Not Available Not Available NuvaRing 0.12 mg-0.015 mg/24 hr vaginal 02/27 completed Not Available Not Available Not Available Vyvanse 30 mg capsule TAKE 1 CAPSULE BY MOUTH EVERY DAY 09/17 completed Not Available Not Available Not Available Vyvanse 20 mg capsule TAKE 1 CAPSULE BY MOUTH EVERY DAY 02/27 completed Not Available Not Available Not Available Vyvanse 40 mg capsule Take 1 capsule every day by oral route. 2024 active Not Available Not Available Not Avai lable Vicodin 5 mg-300 mg tablet 03/25 completed Not Available Not Available Not Available Vitals Date Recorded Systolic blood pressure Diastolic blood pressure Provider Name and Address Organization Details Last Updated DateTime 12/04/2024 110 mm[Hg] 80 mm[Hg] SELENE Baires Attn: Accounting,[address] [place], [address], [facility] 12/04/2024 16:42:56 Date Recorded Body height Body mass index (BMI) Body weight Respiratory rate Oxygen saturation Oxygen saturation in Arterial blood by Pulse oximetry Heart rate Systolic blood pressure Diastolic blood pressure Provider Name and Address Organization Details Last Updated DateTime 165.1 cm 28.3 kg/m2 00776.7 g 18 /min 100 % 100 % 95 /min 106 mm[Hg] 72 mm[Hg] Ramesh Carias MA [facility] 5 16:24:13 Date Recorded Systolic blood pressure Diastolic blood pressure Systolic blood pressure Diastolic blood pressure Provider Name and Address Organization Details Last Updated DateTime 02/28/2024 118 mm[Hg] 80 mm[Hg] 120 mm[Hg] 80 mm[Hg] SELENE Baires Attn: Accounting ,[address] [place], [address] , [facility] 14:32:24 Date Recorded Body height Respiratory rate Body mass index (BMI) Body weight Oxygen saturation Oxygen saturation in Arterial blood by Pulse oximetry Heart rate Systolic blood pressure Diastolic blood pressure Provider Name and Address Organization Details Last Updated DateTime 165.1 cm 18 /min 28.3 kg/m2 25231.7 g 99 % 99 % 88 /min 124 mm[Hg] 82 mm[Hg] Ramesh Carias MA [facility] 4 14:07:04 Date Recorded Body height Provider Name an d Address Organization Details Last Updated DateTime 03/05/2025 165.1 cm Ramesh Carias MA [facility] 2024 12:20:17 Date Recorded Respiratory rate Systolic blood pressure Diastolic blood pressure Provider Name and Address Organization Details Last Updated DateTime 07/09/2024 18 /min 124 mm[Hg] 82 mm[Hg] SELENE Baires Attn: Accounting, [address] [place], [address], [facility] 07/09/2024 14:40:20 Date Recorded Body height Body mass index (BMI) Body weight Heart rate Oxygen saturation Oxygen saturation in Arterial blood by Pulse oximetry Systolic blood pressure Diastolic blood pressure Provider Name and Address Organization Details Last Updated DateTime 4 165.1 cm 28.3 kg/m2 96392.7 g 87 /min 98 % 98 % 136 mm[Hg] 70 mm[Hg] Bernadette Madrid MA [facility] 4 14:24:44 Date Recorded Systolic blood pressure Diastolic blood pressure Systolic blood pressure Diastolic blood pressure Provider Name and Address Organization Details Last Updated DateTime 08/29/2024 120 mm[Hg] 80 mm[Hg] 110 mm[Hg] 80 mm[Hg] SELENE Baires Attn: Accounting ,[address] [place], [address] , [facility] 4 17:25:53 Date Recorded Body height Body mass index (BMI) Body weight Respiratory rate Oxygen saturation Oxygen saturation in Arterial blood by Pulse oximetry Heart rate Systolic blood pressure Diastolic blood pressure Provider Name and Address Organization Details Last Updated DateTime 4 165.1 cm 28.1 kg/m2 19966.1 1 g 18 /min 99 % 99 % 88 /min 126 mm[Hg] 72 mm[Hg] Ramesh Carias MA [facility] 4 16:49:15 Social History Question Answer Notes LastModified by Organizat ion Details LastModified Time Tobacco Smoking Status Never Smoker Rachel Zhong MA [facility], [facility] 03/25/2015 16:12:46 Do You Have An Advance Directive? No Information n ot available 08/29/2024 Are You Blind Or Do You Have Difficulty Seeing? No Glasses Information n ot available 02/28/2024 What Is Your Level Of Caffeine Consumption? Heavy [email or web address] Information not available 03/25/2015 In The 14 Days Before Symptom Onset, Have You Had Close Contact With A Laboratory-confirm ed COVID-19 While That Case Was Ill? No Information n ot available 02/28/2024 In The 14 Days Before Symptom Onset, Have You Had Close Contact With A Person Who Is Under Investigation For COVID-19 While That Person Was Ill? No Information not available 02/28/2024 Have You Been To An Area Known To Be High Risk For COVID-19? No Information not available 02/28/2024 Are You Deaf Or Do You Have Serious Difficulty Hearing? No Information not available 02/28/2024 What Type Of Diet Are You Following? REGULAR Information n ot available 02/28/2024 What Is The Highest Grade Or Level Of School You Have Completed Or The Highest Degree You Have Received? [id number] Information not available 02/28/2024 Are There Any Guns Present In Your Home? No Information not available 02/28/2024 Live Alone Or With Others? With Others [email or web address] Information not available 03/25/2015 Do You Have A High School Diploma Or Higher Education? Yes Information no t available 02/28/2024 Do You Sometimes Have To Miss Your Medical Appointments Due To Difficult Getting Transportation? No Information not available 02/28/2024 Do You Feel Unfairly Treated Due To Things Such As Race, Age, Gender, Disability Or Some Other Reason? No Information not available 02/28/2024 Do You Feel Physically And Emotionally Safe While Living At Home? Yes Information not available 02/28/2024 Do You Feel Physically And Emotionally Safe In Your Neighborhood Or Other Public Places? No Information not available 02/28/2024 What Was The Date Of Your Most Recent Tobacco Screening? 03/05/2025 Information not available 03/05/2025 How Many Children Do You Have? 0 [email or web address] Information not available 03/25/2015 Do You Use Your Seat Belt Or Car Seat Routinely? Yes Information not available 02/28/2024 Smoke Alarm In Home Yes [email or web address] Information not available 03/25/2015 Do You Have Smoke And Carbon Monoxide Detectors In Your Home? Yes Information not available 02/28/2024 Do You Use Sunscreen Routinely? No Information not available 02/28/2024 Has Tobacco Cessation Counseling Been Provided? No Information not available 02/28/2024 Sex: Female Functional Status Question Answer Note LastModified by Organizat ion Details LastModified Time Do you use any illicit or recreational drugs? No Information not available 02/28/2024 Do you or have you ever used any other forms of tobacco or nicotine? No Information not available 02/28/2024 What is your level of alcohol consumption? Occasional Information not available 02/28/2024 Are you currently employed? Yes Information not available 02/28/2024 Are you able to care for yourself? Yes [email or web address] Information n ot available 03/25/2015 What is your occupation? teacher Information not available 02/28/2024 What is your exercise level? None Information not available 02/28/2024 Mental Status None recorded. Family History Relationship Description Onset Age of this Age Resolved Age Notes LastModified by Organization Details LastModified Time Father Obie [email or web address] Not available 03/25 16:12:46 Medical History Condition Response High Cholesterol Y GI Problems Y Asthma Y Gynecological History Statement/Question Response Abnormal Pap N Flow Moderate Date of LMP 02/10/2025 Frequency of Cycle (Q days) 28 On BCP's at Conception? N Menses Monthly Y Date of Last Pap Smear 11/21/2013 Duration of Flow (days) 5 Current Control Method None LMP Definite Obstetrics History GPAL:G 2 P 1 0 0 1 Type Value Full Term 1 Induced 0 Spontaneous 0 Premature 0 Living 1 Total 2 Immunizations Vaccine Type Date Status Note Provider Nam e and Address Organization Details Recorded Time Tdap 11/21/2010 completed DENZEL Mackey, [facility] 03/25/2015 16:12:46 MMR 01/25/2019 completed DENZEL Moser, [facility] 08/28/2024 17:07:25 Past Encounters Encounter ID Performer Location Encounter Start Date Encounter Closed Date Diagnosis/Indication Diagnosis SNOMED-CT Code Diagnosis ICD10 Code Diagnosis Note [id number] MD Wiley Cardoso (Fam Med) [address] [place] [address] 03/25/2015 15:56:36 03/25/2015 16:45:16 History of anxiety state 884669290 History of depression 921167116 [id number] Rafat Fletcher MD [facility] [place] [address] [place] [address] 02/28/2024 10:14:06 02/28/2024 14:37:46 Attention deficit hyperactivity disorder, 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 Excellent clinical results with this management . She focus, she is more social, she has more to give now, less over-stimu lation. pt has tried & failed the generic form in 07/2023 & it was ineffectiv e controllin g her adhd sx's & when she started back on the Brand name vyvanse in Aug 2023 her sx's were improved & under control & then I am to send it w\the denial letter back to the ins for review. refill on branded vyvanse only Hyperlipidemia 57283340 E78.5 labs improved from September. still a bit above goal but improving. Long-term drug therapy 919982556 Z79.899 UTD on labs. [id number] Rafat Fletcher MD [facility] [employer] [place] [address] [place] [address] 07/09/2024 14:16:10 07/09/2024 14:53:42 Sebaceous cyst of skin of breast 56980087 N60.89 Patient should apply warm compresses to the area to soften up to see if more drainage is expressed. She can continue clindamyci n antibiotic that was given in the urgent care at this time. She would be referred to general surgery if this does not resolve. There has been some discharge that she expressed previous so this is consistent with a sebaceous cyst. Long-term drug therapy 794907794 Z79.899 UTD on labs. Attention deficit hyperactivity disorder, predominantly inattentive type 15875311 F90.0 stable on vyvanse 30mg daily. Excellent clinical results with this management . She focus, she is more social, she has more to give now, less over-stimu lation. pt has tried & failed the generic form in 07/2023 & it was ineffectiv e controllin g her adhd sx's & when she started back on the Brand name vyvanse in Aug 2023 her sx's were improved & under control & then I am to send it w\the denial letter back to the ins for review. refill on branded vyvanse only Refill on Vyvanse 30 mg daily [id number] Rafat Fletcher MD [facility] [place] [address] [place] [address] 08/29/2024 16:26:36 09/03/2024 14:33:27 Adult attention deficit hyperactivity disorder 384998814 F90.9 Patient is very stable on Vyvanse 40 mg daily. Controlled substance contract has been signed and in place and follow-up in 3 months scheduled Body mass index 25-29 - overweight 611069501 Z68.28 BMI is 28.1 Overweight 129920131 E66 .3 Patient has had great weight loss and her BMI has come down with her efforts. Adult heal th examination 886310486 Z00.00 Annual wellness exam completed Hyperlipidemia 92942587 E78.5 Diet and exercise management for hyperlipid emia. She is due for an updated fasting lab Long-term drug therapy 611813911 Z79.899 cmp, cbc and b12, folate labs are due Diabetes m ellitus screening 586442771 Z13.1 Annual diabetes screening is ordered Thyroid di sorder screening 408963379 Z13.29 Routine thyroid function testing ordered Vitamin D deficiency 347 93151 E55.9 Vitamin-D lab is due with history of deficiency Family his tory of hemochromatosis 791371988 Z83.49 Family member has been diagnosed with hemochroma tosis so we will check iron studies on next labs [id number] Rafat Fletcher MD [facility] [place] [address] [place] [address] 12/04/2024 16:17:03 12/17/2024 14:57:09 Adult attention deficit hyperactivity disorder 938959116 F90.9 Patient is very stable on Vyvanse 40 mg daily. Controlled substance contract has been signed and in place and follow-up in 3 months scheduled Long-term drug therapy 368976605 Z79.899 Thyroid di sorder screening 271598096 Z13.29 Routine thyroid function testing ordered Allergy to food 20829219 1 Z91.018 Screening IgE for whole egg has been ordered Hormone abnormality 8445 2004 R89.1 Patient request progestero ne estrogen and testostero ne [id number] Rafat Fletcher MD [facility] - [place] [address] [place] [address] 03/05/2025 12:15:22 03/05/2025 13:01:08 Adult attention deficit hyperactivity disorder 766880679 F90.9 Patient is very stable on Vyvanse 40 mg daily. Controlled substance contract has been signed and in place and follow-up in 3 months scheduled Cyst of thyroid 20592634 E04.1 Ultrasound reviewed small mixed cyst suggesting that no follow-up is needed but discussed with the patient I would prefer doing another ultrasound in 12-18 months. Long-term drug therapy 843664392 Z79.899 Health Concerns Section Related Observation LastModified by Organization Detai ls LastModified Time None Recorded Concern Status LastModified by Organization Details LastModified Time None Recorded Advance Directives Directive N: Payers Encounter Date Sequence Insurance Name Policy Number Policy Fraga Covered Member ID Fraga Member ID Guarantor Name 02/28/2024 1 [employer] [id number] Odalys L Mandi [id number] Odalys Mandi 07/09/2024 1 [employer] [id number] Odalys L Mandi [id number] Odalys Mandi 08/29/2024 1 [employer] [id number] Odalys L Mandi [id number] Odalys Mandi 12/04/2024 1 [employer] [id number] Odalys L Mandi [id number] Odalys Mandi 03/05/2025 1 [employer] [id number] Odalys L Mandi [id number] Odalys Mandi Notes Date Note Type Note Provider Name and Address Organization Details Recorded Time 02/28/2024 text/html Generic HPI TemplateReported bypatient.Notes:Attent ion deficit diagnosis, adult. Excellent results on vyvanse 30mg daily. no complaints. pt has tried & failed the generic form in 07/2023 & it was ineffective controlling her adhd sx's & when she started back on the Brand name vyvanse in Aug 2023 her sx's were improved & under control . Hx of mixed hyperlipidemia. Diet and weight loss managed. SELENE Baires Attn: Accounting,[address], [place], [address], [facility] 03/06/2024 12:43:53 07/09/2024 text/html Generic HPI TemplateReported bypatient.Notes:adult ADHD hx-very stable on branded vyvanse therapy. Here for required f/u appt. Lump has been present for months and months, left axilla. she checks on it from time to time. recently she felt it was bigger. She thought it had a head to it. Then it swelled up much bigger. she expressed some d/c from it,but not completely, More discharge expressed later on. Then infection set in. Went to urgent care june 30. Given clindamycin abx. pt here for f/u today. SELENE Baires Attn: Accounting,[address] [facility], [place], [address], [facility] 07/22/2024 01:49:39 08/29/2024 text/html Generic HPI TemplateReported bypatient.Notes:Attent ion deficit diagnosis, adult. Excellent results on vyvanse 40mg daily. no complaints. pt has tried & failed the generic form in 07/2023 & it was ineffective controlling her adhd sx's & when she started back on the Brand name vyvanse in Aug 2023 her sx's were improved & under control . Hx of mixed hyperlipidemia. Diet and weight loss managed. SELENE Baires Attn: Accounting,[address] [facility] [facility], [place], [address], [facility] 09/18/2024 23:34:31 12/04/2024 text/html Generic HPI TemplateReported bypatient.Notes:Attent ion deficit diagnosis, adult. Excellent results on vyvanse 40mg daily. no complaints. pt has tried & failed the generic form in 07/2023 & it was ineffective controlling her adhd sx's & when she started back on the Brand name vyvanse in Aug 2023 her sx's were improved & under control . Patient is reporting that she feels like she is having an allergy to egg. She some specific testing to evaluate for any sensitivity or allergy. She is also interested in just having her hormones checked because she is cyclically noting quite a bit of variation in just her overall mood. SELENE Baires Attn: Accounting,[address] [facility], [place], [address], [facility] 12/22/2024 08:36:43 03/05/2025 text/html Generic HPI TemplateReported bypatient.Notes:Attent ion deficit diagnosis, adult. Excellent results on vyvanse 40mg daily. no complaints. pt has tried & failed the generic form in 07/2023 & it was ineffective controlling her adhd sx's & when she started back on the Brand name vyvanse in Aug 2023 her sx's were improved & under control . SELENE Baires Attn: Accounting,[address] [facility], [place], [address], [facility] 03/24/2025 12:54:25 OBGyn Episode No OBEpisode recorded.
--- OUTSIDE RECORDS SUMMARY | 2025-05-01 10:14 | XMS_ITS | Data Portability ---
Author Organization [facility] [employer], Main Office Address [address] [place] [address] Assessment No assessment recorded. Plan of Treatment Reminders Order Date Submit Date Provider Last Modified By Organization Details Last Modified Time Details Appointments None recorded. Lab lipid panel, serum 2022 023 [employer] [facility], [address], [place], [address], 3 06:17:18 CMP, serum or plasma 2022 023 [employer] [facility], [address], [place], [address], 3 06:17:19 CBC w/ auto diff 2022 023 [employer] [facility], [address], [place], [address], 3 06:17:22 TSH + free T4, serum 2022 023 [employer] [facility], [address], [place], [address], 3 06:17:17 T3, free, serum or plasma 2022 023 [employer] [facility], [address], [place], [address], 3 06:17:21 HbA1c (hemoglobin A1c), blood 2022 023 [facility] [employer] [facility], [address], [place], [address], 3 06:17:20 Referral None recorded. Procedures None recorded. Surgeries None recorded. Imaging MRI, lower leg, w/wo contrast - approved [id number] 10/10/2023 - 12/08/20232022 023 [facility], [address], [facility] [address], [place], [address], 3 09:17:15 US, lower extremity, nonvascular , limited 2022 023 [facility], [address], [address], [place], [address], 3 09:56:10 Medication Orders triamcinolo ne acetonide 0.1 % topical cream 2022 023 [facility][id number], [address], [place], [id number], 3 16:04:27 Vyvanse 20 mg capsule 2022 023 [email or web address][id number], [address], [place], [id number], 3 10:28:42 Patient TargetsNo targets recorded. Patient InstructionsNo instructions recorded. Reason for Referral None Reported. Results Created Date Observation Date Name Description Value Unit Range Abnormal Flag Note LastModifiedBy Organization Detail LastModifiedTime 10/02/20 21 10/03/2021 HEMOG LOBIN A1C hemoglobin A1C 5.2 % 4.8-5. 6 Predi abete s: 5.7 - 6.4 Diabe olvin: >6.4 Glyce jose daniel contr ol for adult s with diabe olvin: <7.0 Not Available [facility] ([facility]) [address] [facility], [place], [address], 10/03/2021 06:13:34 10/02/20 21 10/03/2021 LIPID PANEL WITH LDL/H DL RATIO cholesterol, total 212 mg/dL 100-19 9 above high normal Not Available [facility] ([facility]) [address] [facility], [place], [address], 10/03/2021 06:13:34 10/02/20 21 10/03/2021 LIPID PANEL WITH LDL/H DL RATIO triglyceride s 139 mg/dL 0-149 Not Available [facility] ([facility]) [address] [facility], [place], [address], 10/03/2021 06:13:34 10/02/20 21 10/03/2021 LIPID PANEL WITH LDL/H DL RATIO HDL cholesterol 39 mg/dL >39 below low normal Not Available [facility] ([facility]) [address] [facility], [place], [address], 10/03/2021 06:13:34 10/02/20 21 10/03/2021 LIPID PANEL WITH LDL/H DL RATIO VLDL cholesterol shannan 25 mg/dL 5-40 Not Available [facility] ([facility]) [address] [facility], [place], [address], 10/03/2021 06:13:34 10/02/20 21 10/03/2021 LIPID PANEL WITH LDL/H DL RATIO LDL chol calc ([facility]) 148 mg/dL 0-99 above high normal Not Available [facility] ([facility]) [address] [facility], [place], [address], 10/03/2021 06:13:34 10/02/20 21 10/03/2021 LIPID PANEL WITH LDL/H DL RATIO comment: clinical sales consultant Not Available [facility] ([facility]) [address] [facility], [place], [address], 10/03/2021 06:13:34 10/02/20 21 10/03/2021 LIPID PANEL WITH LDL/H DL RATIO LDL/HDL ratio 3.8 ratio 0.0-3. 2 above high normal LDL/H DL Ratio Men Women 1/2 Avg.R isk 1.0 1.5 Avg.R isk 3.6 3.2 2X Avg.R isk 6.2 5.0 3X Avg.R isk 8.0 6.1 Not Available [facility] ([facility]) [address] [facility], [place], [address], 10/03/2021 06:13:34 10/02/20 21 10/03/2021 CBC WITH DIFFE RENTI AL/PL ATELE T WBC 6.6 x10e3 /uL 3.4-10 .8 Not Available [facility] ([facility]) [address] [place], [address], 10/03/2021 06:13:33 10/02/20 21 10/03/2021 CBC WITH DIFFE RENTI AL/PL ATELE T RBC 4.74 x10e6 /uL 3.77-5 .28 Not Available [facility] ([facility]) [address] [facility], [place], [address], 10/03/2021 06:13:33 10/02/20 21 10/03/2021 CBC WITH DIFFE RENTI AL/PL ATELE T hemoglobin 14.6 g/dL 11.1-1 5.9 Not Available [facility] ([facility]) [address] [place], [address], 10/03/2021 06:13:33 10/02/20 21 10/03/2021 CBC WITH DIFFE RENTI AL/PL ATELE T hematocrit 42.8 % 34.0-4 6.6 Not Available [facility] ([facility]) [address] [place], [address], 10/03/2021 06:13:33 10/02/20 21 10/03/2021 CBC WITH DIFFE RENTI AL/PL ATELE T MCV 90 fL 79-97 Not Available [facility] ([facility]) [address] [facility], [place], [address], 10/03/2021 06:13:33 10/02/20 21 10/03/2021 CBC WITH DIFFE RENTI AL/PL ATELE T MCH 30.8 pg 26.6-3 3.0 Not Available [facility] ([facility]) [address] [facility], [place], [address], 10/03/2021 06:13:33 10/02/20 21 10/03/2021 CBC WITH DIFFE RENTI AL/PL ATELE T MCHC 34.1 g/dL 31.5-3 5.7 Not Available [facility] ([facility]) [address] [facility], [place], [address], 10/03/2021 06:13:33 10/02/20 21 10/03/2021 CBC WITH DIFFE RENTI AL/PL ATELE T RDW 12.2 % 11.7-1 5.4 Not Available [facility] ([facility]) [address] [facility], [place], [address], 10/03/2021 06:13:33 10/02/20 21 10/03/2021 CBC WITH DIFFE RENTI AL/PL ATELE T platelets 215 x10e3 /uL 150-45 0 Not Available [facility] ([facility]) [address] [facility], [place], [address], 10/03/2021 06:13:33 10/02/20 21 10/03/2021 CBC WITH DIFFE RENTI AL/PL ATELE T neutrophils 58 % not estab. Not Available [facility] ([facility]) [address] [place], [address], 10/03/2021 06:13:33 10/02/20 21 10/03/2021 CBC WITH DIFFE RENTI AL/PL ATELE T lymphs 32 % not estab. Not Available [facility] ([facility]) [address] [facility], [place], [address], 10/03/2021 06:13:33 10/02/20 21 10/03/2021 CBC WITH DIFFE RENTI AL/PL ATELE T monocytes 8 % not estab. Not Available [facility] ([facility]) [address] [facility], [place], [address], 10/03/2021 06:13:33 10/02/20 21 10/03/2021 CBC WITH DIFFE RENTI AL/PL ATELE T eos 1 % not estab. Not Available [facility] ([facility]) [address] [place], [address], 10/03/2021 06:13:33 10/02/20 21 10/03/2021 CBC WITH DIFFE RENTI AL/PL ATELE T basos 1 % not estab. Not Available [facility] ([facility]) [address] [facility], [place], [address], 10/03/2021 06:13:33 10/02/20 21 10/03/2021 CBC WITH DIFFE RENTI AL/PL ATELE T immature cells clinical sales consultant Not Available [facility] ([facility]) [address] [place], [address], 10/03/2021 06:13:33 10/02/20 21 10/03/2021 CBC WITH DIFFE RENTI AL/PL ATELE T neutrophils (absolute) 3.8 x10e3 /uL 1.4-7. 0 Not Available [facility] ([facility]) [address] [place], [address], 10/03/2021 06:13:33 10/02/20 21 10/03/2021 CBC WITH DIFFE RENTI AL/PL ATELE T lymphs (absolute) 2.1 x10e3 /uL 0.7-3. 1 Not Available [facility] ([facility]) [address] [place], [address], 10/03/2021 06:13:33 10/02/20 21 10/03/2021 CBC WITH DIFFE RENTI AL/PL ATELE T monocytes(ab solute) 0.5 x10e3 /uL 0.1-0. 9 Not Available [facility] ([facility]) [address] [facility], [place], [address], 10/03/2021 06:13:33 10/02/20 21 10/03/2021 CBC WITH DIFFE RENTI AL/PL ATELE T eos (absolute) 0.1 x10e3 /uL 0.0-0. 4 Not Available [facility] ([facility]) [address] [place], [address], 10/03/2021 06:13:33 10/02/20 21 10/03/2021 CBC WITH DIFFE RENTI AL/PL ATELE T baso (absolute) 0.1 x10e3 /uL 0.0-0. 2 Not Available [facility] ([facility]) [address] [facility], [place], [address], 10/03/2021 06:13:33 10/02/20 21 10/03/2021 CBC WITH DIFFE RENTI AL/PL ATELE T immature granulocytes 0 % not estab. Not Available [facility] ([facility]) [address] [place], [address], 10/03/2021 06:13:33 10/02/20 21 10/03/2021 CBC WITH DIFFE RENTI AL/PL ATELE T immature grans (abs) 0.0 x10e3 /uL 0.0-0. 1 Not Available [facility] ([facility]) [address] [place], [address], 10/03/2021 06:13:33 10/02/20 21 10/03/2021 CBC WITH DIFFE RENTI AL/PL ATELE T NRBC clinical sales consultant Not Available [facility] ([facility]) [address] [facility], [place], [address], 10/03/2021 06:13:33 10/02/20 21 10/03/2021 CBC WITH DIFFE AMERICOTI AL/PL ATELE T hematology comments: clinical sales consultant Not Available [facility] ([facility]) [address] [facility], [place], [address], 10/03/2021 06:13:33 10/02/20 21 10/03/2021 TSH+F REE T4 TSH 1.550 uIU/m L 0.450- 4.500 Not Available [facility] ([facility]) [address] [facility], [place], [address], 10/03/2021 06:13:33 10/02/20 21 10/03/2021 TSH+F REE T4 T4,free(dire ct) 0.99 NG/dL 0.82-1 .77 Not Available [facility] ([facility]) [address] [facility], [place], [address], 10/03/2021 06:13:33 10/02/20 21 10/03/2021 CMP14 +EGFR glucose 86 mg/dL 65-99 Not Available [facility] ([facility]) [address] [facility], [place], [address], 10/03/2021 06:13:32 10/02/20 21 10/03/2021 CMP14 +EGFR BUN 12 mg/dL 6-20 Not Available [facility] ([facility]) [address] [facility], [place], [address], 10/03/2021 06:13:32 10/02/20 21 10/03/2021 CMP14 +EGFR creatinine 0.79 mg/dL 0.57-1 .00 Not Available [facility] ([facility]) [address] [facility], [place], [address], 10/03/2021 06:13:32 10/02/20 21 10/03/2021 CMP14 +EGFR eGFR if nonafricn AM 97 mL/mi n/1.7 3 >59 Not Available [facility] ([facility]) [address] [place], [address], 10/03/2021 06:13:32 10/02/20 21 10/03/2021 CMP14 +EGFR eGFR if africn AM 111 mL/mi n/1.7 3 >59 In accor dance with recom menda tions from the NKF-A SN Task force , [facility] is in the proce ss of updat ing its eGFR calcu latio n to the 2020 CKD-E PI creat inine equat ion that estim ates kidne y funct ion witho ut a race varia ble. Not Available [facility] ([facility]) [address] [facility], [place], [address], 10/03/2021 06:13:32 10/02/20 21 10/03/2021 CMP14 +EGFR BUN/creatini ne ratio 15 9-23 Not Available [facility] ([facility]) [address] [facility], [place], [address], 10/03/2021 06:13:32 10/02/20 21 10/03/2021 CMP14 +EGFR sodium 138 mmol/ L 134-14 4 Not Available [facility] ([facility]) [address] [place], [address], 10/03/2021 06:13:32 10/02/20 21 10/03/2021 CMP14 +EGFR potassium 4.9 mmol/ L 3.5-5. 2 Not Available [facility] ([facility]) [address] [place], [address], 10/03/2021 06:13:32 10/02/20 21 10/03/2021 CMP14 +EGFR chloride 104 mmol/ L 96-106 Not Available [facility] ([facility]) [address] [place], [address], 10/03/2021 06:13:32 10/02/20 21 10/03/2021 CMP14 +EGFR carbon dioxide, total 21 mmol/ L 20- Not Available [facility] ([facility]) [address] [facility], [place], [address], 10/03/2021 06:13:32 10/02/20 21 10/03/2021 CMP14 +EGFR calcium 9.4 mg/dL 8.7-10 .2 Not Available [facility] ([facility]) [address] [place], [address], 10/03/2021 06:13:32 10/02/2010/03/2021 CMP14 +EGFR protein, total 6.9 g/dL 6.0-8. 5 Not Available [facility] ([facility]) [address] [place], [address], 10/03/2021 06:13:32 10/02/2010/03/2021 CMP14 +EGFR albumin 4.4 g/dL 3.8-4. 8 Not Available [facility] ([facility]) [address] [place], [address], 10/03/2021 06:13:32 10/02/20 21 10/03/2021 CMP14 +EGFR globulin, total 2.5 g/dL 1.5-4. 5 Not Available [facility] ([facility]) [address] [place], [address], 10/03/2021 06:13:32 10/02/2010/03/2021 CMP14 +EGFR A/G ratio 1.8 1.2-2. 2 Not Available [facility] ([facility]) [address] [place], [address], 10/03/2021 06:13:32 10/02/2010/03/2021 CMP14 +EGFR bilirubin, total 0.5 mg/dL 0.0-1. 2 Not Available [facility] ([facility]) [address] [facility], [place], [address], 10/03/2021 06:13:32 10/02/2010/03/2021 CMP14 +EGFR alkaline phosphatase 64 IU/L 44-121 Ple ase note refer ence inter maik roach e Not Available [facility] ([facility]) [address] [place], [address], 10/03/2021 06:13:32 10/02/20 21 10/03/2021 CMP14 +EGFR AST (SGOT) 21 IU/L 0-40 Not Available [facility] ([facility]) [address] [facility], [place], [address], 10/03/2021 06:13:32 10/02/20 21 10/03/2021 CMP14 +EGFR ALT (SGPT) 25 IU/L 0-32 Not Available [facility] ([facility]) [address] [facility], [place], [address], 10/03/2021 06:13:32 09/26/2009/27/2023 TSH+F REE T4 TSH 2.21 mIU/L normal Refer ence Range > or = 20 Years 0.40- 4.50 Pregn brandon Range s First trime ster 0.26- 2.66 Secon d trime ster 0.55- 2.73 Third trime ster 0.43- 2.91 Not Available [facility] [address] [place], [address], 09/27/2023 06:17:17 09/26/2009/27/2023 TSH+F REE T4 T4, free 1.0 NG/dL 0.8-1. 8 normal Not Available [facility] [address] [place], [address], 09/27/2023 06:17:17 09/26/20 23 09/27/2023 LIPID PANEL WITH RATIO S cholesterol, total 213 mg/dL <200 high Not Available [facility] [address] [place], [address], 09/27/2023 06:17:18 09/26/20 23 09/27/2023 LIPID PANEL WITH RATIO S HDL cholesterol 40 mg/dL > or = 50 low Not Available [facility] [address] [place], [address], 09/27/2023 06:17:18 09/26/20 23 09/27/2023 LIPID PANEL WITH RATIO S triglyceride s 163 mg/dL <150 high Not Available [facility] [address] [address] [place], [address], 09/27/2023 06:17:18 09/26/20 23 09/27/2023 LIPID PANEL WITH RATIO S LDL-choleste rol 143 mg/dL _(shannan c) high Refer ence range : <100 Isaac able range <100 mg/dL for prima ry preve ntion ; <70 mg/dL for patie nts with CHD or diabe tic patie nts with > or = 2 CHD risk facto rs. LDL-C is now calcu lated using the Nahomi huerta-Hop yuriy vanu arnaldo n, which is a valid ated novel angel de la garza r accur acy than the Fried aida equat ion in the estim ation of LDL-C . Nahomi huerta SS et al. GABRIELLE. 2013; 310(1 9): 2061- 2068 (http ://ed ucati on.Qu Yu bond [employer]. com/f aq/FA Q164) Not Available [facility] [address] [place], [address], 09/27/2023 06:17:18 09/26/20 23 09/27/2023 LIPID PANEL WITH RATIO S chol/HDLC ratio 5.3 (calc ) <5.0 high Not Available [facility] [address] [place], [address], 09/27/2023 06:17:18 09/26/2009/27/2023 LIPID PANEL WITH RATIO S LDL/HDL ratio 3.6 (calc ) Below avera ge Risk: <2.34 [place] ge Risk: 2.35- 4.12 Moder ate Risk: 4.13- 5.56 High Risk: >5.57 Not Available [address] [address] [place], [address], 09/27/2023 06:17:18 09/26/2009/27/2023 LIPID PANEL WITH RATIO S non HDL cholesterol 173 mg/dL _(shannan c) <130 high For patie nts with diabe olvin plus 1 major ASCVD risk facto r, treat ing to a non-H DL-C goal of <100 mg/dL (LDL- C of <70 mg/dL ) is christopher vale therkavin peuti c optio n. Not Available [address], [address], 09/27/2023 06:17:18 09/26/2009/27/2023 COMPR EHENS MIKEY METAB OLIC PANEL glucose 90 mg/dL 65-99 normal Fasti ng refer ence inter maik Not Available [address], [address], 09/27/2023 06:17:19 09/26/2009/27/2023 COMPR EHENS MIKEY METAB OLIC PANEL urea nitrogen (BUN) 13 mg/dL 7-25 normal Not Available [address], [address], 09/27/2023 06:17:19 09/26/2009/27/2023 COMPR EHENS MIKEY METAB OLIC PANEL creatinine 0.75 mg/dL 0.50-0 .97 normal Not Available [address] [address] [place], [address], 09/27/2023 06:17:19 09/26/20 23 09/27/2023 COMPR EHENS MIKEY METAB OLIC PANEL eGFR 104 mL/mi n/1.7 3m2 > or = 60 normal Not Available [address], [address], 09/27/2023 06:17:19 09/26/20 23 09/27/2023 COMPR EHENS MIKEY METAB OLIC PANEL BUN/creatini ne ratio SEE NOTE: (calc ) 6-22 Not Repor rolan: BUN and Creat inine are withi n refer ence range . Not Available [address], [address], 09/27/2023 06:17:19 09/26/20 23 09/27/2023 COMPR EHENS MIKEY METAB OLIC PANEL sodium 139 mmol/ L 135-14 6 normal Not Available [address], [address], 09/27/2023 06:17:19 09/26/20 23 09/27/2023 COMPR EHENS MIKEY METAB OLIC PANEL potassium 4.7 mmol/ L 3.5-5. 3 normal Not Available [address], [address], 09/27/2023 06:17:19 09/26/20 23 09/27/2023 COMPR EHENS MIKEY METAB OLIC PANEL chloride 103 mmol/ L 98-110 normal Not Available [address], [address], 09/27/2023 06:17:19 09/26/20 23 09/27/2023 COMPR EHENS MIKEY METAB OLIC PANEL carbon dioxide 27 mmol/ L 20-32 normal Not Available [address], [address], 09/27/2023 06:17:19 09/26/20 23 09/27/2023 COMPR EHENS MIKEY METAB OLIC PANEL calcium 9.7 mg/dL 8.6-10 .2 normal Not Available [address] [place], [address], 09/27/2023 06:17:19 09/26/20 23 09/27/2023 COMPR EHENS MIKEY METAB OLIC PANEL protein, total 6.9 g/dL 6.1-8. 1 normal Not Available [address] [address] [place], [address], 09/27/2023 06:17:19 09/26/20 23 09/27/2023 COMPR EHENS MIKEY METAB OLIC PANEL albumin 4.5 g/dL 3.6-5. 1 normal Not Available [address], [address], 09/27/2023 06:17:19 09/26/20 23 09/27/2023 COMPR EHENS MIKEY METAB OLIC PANEL globulin 2.4 g/dL_ (calc ) 1.9-3. 7 normal Not Available [address], [address], 09/27/2023 06:17:19 09/26/20 23 09/27/2023 COMPR EHENS MIKEY METAB OLIC PANEL albumin/glob ulin ratio 1.9 (calc ) 1.0-2. 5 normal Not Available [address], [address], 09/27/2023 06:17:19 09/26/2009/27/2023 COMPR EHENS MIKEY METAB OLIC PANEL bilirubin, total 0.5 mg/dL 0.2-1. 2 normal Not Available [address], [address], 09/27/2023 06:17:19 09/26/20 23 09/27/2023 COMPR EHENS MIKEY METAB OLIC PANEL alkaline phosphatase 67 U/L 31-125 normal Not Available [address] [address] [place], [address], 09/27/2023 06:17:19 09/26/20 23 09/27/2023 COMPR EHENS MIKEY METAB OLIC PANEL AST 20 U/L 10-30 normal Not Available [facility] [address] [place], [address], 09/27/2023 06:17:19 09/26/20 23 09/27/2023 COMPR EHENS MIKEY METAB OLIC PANEL ALT 19 U/L 6-29 normal Not Available [facility] [address] [address] [place], [address], 09/27/2023 06:17:19 09/26/20 23 09/27/2023 HEMOG LOBIN A1C hemoglobin A1C 4.9 %_of_ total _HGB <5.7 normal For the purpo se of live woodall for the prese nce of diabe ovlin: <5.7% Consi stent with the absen ce of diabe olvin 5.7-6 .4% Consi stent with incre ased risk for diabe olvin (pred iabet es) > or =6.5% Consi stent with diabe olvin This assay resul t is consi stent with a decre ased risk of diabe olvin. Curre ntly, no conse nsus exist shane mauricio use of hemog lobin A1c for diagn osis of diabe olvin in child [place]. Accor ding to Ameri can Diabe olvin Assoc iatio n (ADA) guide lines , hemog lobin A1c <7.0% repre sents optim al contr ol in non-p regna nt diabe tic patie nts. Diffe rent metri cs may apply to speci fic patie nt popul ation s. Stand ards of Medic al Care in Diabe olvin(A DA). Not Available [facility] [address] [place], [address], 09/27/2023 06:17:20 09/26/20 23 09/27/2023 T3, FREE T3, free 3.2 pg/mL 2.3-4. 2 normal Not Available [facility] [address] [place], [address], 09/27/2023 06:17:21 09/26/20 23 09/27/2023 CBC (INCL UDES DIFF/ PLT) white blood cell count 5.9 thous and/u L 3.8-10 .8 normal Not Available [address], [address], 09/27/2023 06:17:22 09/26/20 23 09/27/2023 CBC (INCL UDES DIFF/ PLT) red blood cell count 4.82 vivian on/uL 3.80-5 .10 normal Not Available [address], [address], 09/27/2023 06:17:22 09/26/20 23 09/27/2023 CBC (INCL UDES DIFF/ PLT) hemoglobin 14.4 g/dL 11.7-1 5.5 normal Not Available [address], [address], 09/27/2023 06:17:22 09/26/20 23 09/27/2023 CBC (INCL UDES DIFF/ PLT) hematocrit 43.1 % 35.0-4 5.0 normal Not Available [address], [address], 09/27/2023 06:17:22 09/26/20 23 09/27/2023 CBC (INCL UDES DIFF/ PLT) MCV 89.4 fL 80.0-1 00.0 normal Not Available [address], [address], 09/27/2023 06:17:22 09/26/20 23 09/27/2023 CBC (INCL UDES DIFF/ PLT) MCH 29.9 pg 27.0-3 3.0 normal Not Available [address], [address], 09/27/2023 06:17:22 09/26/20 23 09/27/2023 CBC (INCL UDES DIFF/ PLT) MCHC 33.4 g/dL 32.0-3 6.0 normal Not Available [address], [address], 09/27/2023 06:17:22 09/26/20 23 09/27/2023 CBC (INCL UDES DIFF/ PLT) RDW 12.3 % 11.0-1 5.0 normal Not Available [address], [address], 09/27/2023 06:17:22 09/26/20 23 09/27/2023 CBC (INCL UDES DIFF/ PLT) platelet count 251 thous and/u L 140-40 0 normal Not Available [address], [address], 09/27/2023 06:17:22 09/26/20 23 09/27/2023 CBC (INCL UDES DIFF/ PLT) MPV 11.4 fL 7.5-12 .5 normal Not Available [address], [address], 09/27/2023 06:17:22 09/26/20 23 09/27/2023 CBC (INCL UDES DIFF/ PLT) absolute neutrophils 3168 cells /uL 1500-7 800 normal Not Available [address], [address], 09/27/2023 06:17:22 09/26/20 23 09/27/2023 CBC (INCL UDES DIFF/ PLT) absolute lymphocytes 2159 cells /uL 850-39 00 normal Not Available [address], [address], 09/27/2023 06:17:22 09/26/20 23 09/27/2023 CBC (INCL UDES DIFF/ PLT) absolute monocytes 425 cells /uL 200-95 0 normal Not Available [address], [address], 09/27/2023 06:17:22 09/26/20 23 09/27/2023 CBC (INCL UDES DIFF/ PLT) absolute eosinophils 89 cells /uL 15-500 normal Not Available [address], [address], 09/27/2023 06:17:22 09/26/20 23 09/27/2023 CBC (INCL UDES DIFF/ PLT) absolute basophils 59 cells /uL 0-200 normal Not Available [address], [address], 09/27/2023 06:17:22 09/26/20 23 09/27/2023 CBC (INCL UDES DIFF/ PLT) neutrophils 53.7 % normal Not Available [address], [address], 09/27/2023 06:17:22 09/26/20 23 09/27/2023 CBC (INCL UDES DIFF/ PLT) lymphocytes 36.6 % normal Not Available [address], [address], 09/27/2023 06:17:22 09/26/20 23 09/27/2023 CBC (INCL UDES DIFF/ PLT) monocytes 7.2 % normal Not Available [address], [address], 09/27/2023 06:17:22 09/26/20 23 09/27/2023 CBC (INCL UDES DIFF/ PLT) eosinophils 1.5 % normal Not Available [address], [address], 09/27/2023 06:17:22 09/26/20 23 09/27/2023 CBC (INCL UDES DIFF/ PLT) basophils 1.0 % normal Not Available [address], [address], 09/27/2023 06:17:22 09/06/20 23 09/05/2023 US, lower extre mity, nonva scula r, limit ed No observ ation record ed. [email or web address] [facility] [address], [place], [address], 09/12/2023 14:30:19 10/18/20 23 10/17/2023 MRI, lower leg, w/wo contr ast No observ ation record ed. [email or web address] [facility] [address], [place], [address], 10/25/2023 12:31:21 Result Notes None recorded. Problems Name Problem SNOMED Code Status Onset Date Resolution Date Notes Provider Name and Address Organization Details Recorded Time Right flank pain 288163858 Active Not Available [facility] 3 17:13:38 Biliary dyskinesia 174696237 Active Not Available [facility] 3 17:13:38 Gastroesop hageal reflux disease 825097746 Active Not Available [facility] 3 17:13:38 Mixed hyperlipid emia 296963492 Active Not Available [facility] 3 17:13:38 Pain in thoracic spine 141912851 Active Not Available [facility] 3 17:13:38 Right upper quadrant pain 566391008 Active Not Available [facility] 3 17:13:38 Hypertrigl yceridemia 836656557 Active Not Available [facility] 3 17:13:38 Atopic dermatitis of scalp 595805122 Active Not Available [facility] 3 17:13:38 Hypothyroi dism 89812635 Active 2021 Not Available [facility] 3 17:13:38 Urinary tract infectious disease 40584680 Active Not Available [facility] 3 17:13:38 Attention deficit hyperactiv ity disorder 549869333 Active 2022 SELENE Baires [address], [address], [place], [address] , [employer] 3 11:54:32 Nodule of subcutaneo us tissue of left lower limb 5622400412876 9105 Active 2022 SELENE Baires [address], [address], [place], [address] , [place] [facility] [employer] 3 16:03:19 Perioral dermatitis 695160519 Active 2022 SELENE Baires [address], [address], [place], [address] , [employer] [facility] 3 16:03:49 Abnormal findings on diagnostic imaging of limbs 936908571 Active 2022 SELENE Baires [address], [address], [place], [address] , [employer] [facility] 3 13:59:26 Varicose veins of left lower limb 8734265131975 9109 Active 2023 SELENE Baires [address], [address], [place], [address] , [employer] [facility] 4 23:19:46 Varicose veins of lower extremity 58842578 Active 2023 SELENE Baires [address], [place], [address] , [employer] [facility] 4 23:20:16 Problem Notes None recorded. Procedures Surgical History Date Name Laterality Status Provider Name and Address Organization Details Recorded Time cauterization of lesion of cervix completed Not Available [facility] 01/19/2023 17:12:47 Tonsillectomy completed Not Available [facility] 01/19/2023 17:12:47 Oral surgery procedure completed Not Available [facility] 01/19/2023 17:12:47 Cholecystectomy completed Not Available [facility] 01/19/2023 17:12:47 Imaging Results None recorded. Procedure Notes None recorded. Medical Equipment None Reported. Allergies Allergen ID Allergen Name Allergen Category Reaction Reaction Severity Criticality Documentation Date Start Date Code Code System Note Provider Name and Address Organization Details Recorded Time 34536 Substance with sulfonami de structure and antibacte rial mechanism of action (substanc e) medicatio n hives Not available Not available 01/19/2023 07437 8003 SNOMED Not Available [facility] 3 17:14:58 43149 oxycodone medicatio n itching Not available Not available 01/19/2023 7804 RxNorm Not Available [facility] 3 17:14:58 Medications Name Sig Start Date Stop Date Status Note LastModified by Organization Details LastModified Time medroxyprog esterone 10 mg tablet TK 1 T PO D UTD 09/19 completed Not Available Not Available Not Available ketoconazol e 2 % shampoo 10/27 completed Not Available Not Available Not Available triazolam 0.25 mg tablet active Not Available Not Available Not Available ibuprofen 800 mg tablet active Not Available Not Available Not Available fluconazole 150 mg tablet active Not Available Not Available Not Available clomiphene citrate 50 mg tablet TK 1 T PO D ON DAYS 3 THRU 7 OF MENSTRUAL CYCLE 12/29 completed Not Available Not Available Not Available hydrocodone 5 mg-acetamin ophen 325 mg tablet 05/17 completed Not Available Not Available Not Available prednisone 20 mg tablet TAKE 2 TABLETS BY MOUTH EVERY DAY FOR 5 DAYS 09/21 completed Not Available Not Available Not Available Tubersol 5 tub. unit/0.1 mL intradermal injection solution Inject 0.1 mL by intraderm al route. 09/21 completed Not Available Not Available Not Available diphenoxyla te-atropine 2.5 mg-0.025 mg tablet TK 2 TS PO D 09/21 completed Not Available Not Available Not Available penicillin V potassium 500 mg tablet active Not Available Not Available Not Available acetaminoph en 300 mg-codeine 30 mg tablet 10/27 completed Not Available Not Available Not Available ciprofloxac in 500 mg tablet Take 1 tablet every 12 hours by oral route. 05/17 completed Not Available Not Available Not Available triamcinolo ne acetonide 0.1 % topical cream APPLY A THIN LAYER TO THE CORNERS OF THE MOUTH TOPICALLY TWICE DAILY X 7 TO 10 DAYS active Not Available Not Available No t Available lidocaine-p rilocaine 2.5 %-2.5 % topical cream 10/27 completed Not Available Not Available Not Available levothyroxi ne 25 mcg tablet TAKE 1 TABLET BY MOUTH EVERY DAY 09/21 completed Not Available Not Available Not Available oxycodone-a cetaminophe n 5 mg-325 mg tablet active Not Available Not Available No t Available progesteron e 50 mg/mL intramuscul ar oil 10/27 completed Not Available Not Available Not Available amoxicillin 875 mg tablet Take 1 tablet twice a day by oral route. active Not Available Not Available No t Available chorionic gonadotropi n, human 10,000 unit IM powder for solution 10/27 completed Not Available Not Available Not Available cephalexin 500 mg capsule 05/17 completed Not Available Not Available Not Available methylpredn isolone 8 mg tablet 10/27 completed Not Available Not Available Not Available ranitidine 150 mg tablet TAKE 1 TABLET BY MOUTH TWICE DAILY NEEDED active Not Available Not Available No t Available misoprostol 200 mcg tablet 10/27 completed Not Available Not Available Not Available progesteron e micronized 200 mg capsule active Not Available Not Available Not Available betamethaso ne dipropionat e 0.05 % topical cream APPLY A THIN LAYER TO THE AFFECTED AREA of elbow BY TOPICAL ROUTE each evening PRN active Not Available Not Available No t Available montelukast 10 mg tablet TK 1 T PO QD 10/10 completed Not Available Not Available Not Available ergocalcife rol (vitamin D2) 1,250 mcg (50,000 unit) capsule TAKE 1 CAPSULE BY MOUTH 1 TIME A WEEK active Not Available Not Available No t Available letrozole 2.5 mg tablet use as directed. 05/17 completed Not Available Not Available Not Available methylpredn isolone 4 mg tablets in a dose pack active Not Available Not Available Not Available clobetasol 0.05 % scalp solution APPLY TO THE AFFECTED SCALP AREA BY TOPICAL ROUTE 2 TIMES PER DAY IN THE MORNING AND EVENING as needed active Not Available Not Available No t Available fluticasone propionate 50 mcg/actuati on nasal spray,suspe nsion SHAKE LIQUID AND USE 1 SPRAY IN EACH NOSTRIL DAILY 05/03 completed Not Available Not Available Not Available leuprolide 1 mg/0.2 mL subcutaneou s kit 10/27 completed Not Available Not Available Not Available amoxicillin 875 mg-potassiu m clavulanate 125 mg tablet TAKE 1 TABLET BY MOUTH EVERY 12 HOURS WITH FOOD UNTIL ALL TAKEN 05/02 completed Not Available Not Available Not Available Ventolin HFA 90 mcg/actuati on aerosol inhaler INL 2 PFS PO Q 4 TO 6 H PRN 09/21 completed Not Available Not Available Not Available tobramycin 0.3 %-dexametha sone 0.1 % eye drops,suspe nsion 05/17 completed Not Available Not Available Not Available paroxetine ER 12.5 mg tablet,exte nded release 24 hr active Not Available Not Available Not Available NuvaRing 0.12 mg-0.015 mg/24 hr vaginal active Not Available Not Available Not Available Mononessa (28) 0.25 mg-35 mcg tablet TK 1 T PO D 10/27 completed Not Available Not Available Not Available clobetasol 0.05 % shampoo APPLY A THIN LAYER BY TOPICAL ROUTE ONCE DAILY TO DRY SCALP LEAVE IN PLACE 15 MIN. THEN LATHER AND RINSE. active Not Available Not Available No t Available nitrofurant oin monohydrate /macrocryst als 100 mg capsule Take 1 capsule every 12 hours by oral route. 05/15 completed Not Available Not Available Not Available Menopur 75 unit subcutaneou s solution 10/27 completed Not Available Not Available Not Available chlorhexidi ne gluconate 0.12 % mouthwash active Not Available Not Available No t Available Fish Oil 2014 active Not Available Not Available Not Avai lable cimetidine qd 09/21 completed Not Available Not Available Not Available Vyvanse 30 mg capsule TAKE 1 CAPSULE BY MOUTH EVERY DAY active Not Available Not Available No t Available Vyvanse 20 mg capsule TAKE 1 CAPSULE BY MOUTH EVERY DAY 06/01 completed Not Available Not Available Not Available WelChol 3.75 gram oral powder packet Take 1 packet every day by oral route as directed. active Not Available Not Available No t Available Trinatal GT 90 mg-1 mg-50 mg tablet active Not Available Not Available Not Available Vicodin ES 7.5 mg-300 mg tablet active Not Available Not Available No t Available Vicodin 5 mg-300 mg tablet active Not Available Not Available Not Available Gonal-F RFF Redi-Ject 900 unit/1.5 mL subcutaneou s pen injector 12/07 /2017 completed Not Available Not Available Not Available Virtussin AC 10 mg-100 mg/5 mL oral liquid TK 10 ML PO Q 4 H PRN 09/18 completed Not Available Not Available Not Available PrePlus 27 mg iron-1 mg tablet TK 1 T PO D 05/17 completed Not Available Not Available Not Available Virt-Advanc e 90 mg-1 mg-50 mg tablet 05/04 completed Not Available Not Available Not Available Lotemax SM 0.38 % eye gel drops INSTILL 1 DROP INTO BOTH EYES FOUR TIMES DAILY FOR 2 WEEKS 09/21 completed Not Available Not Available Not Available Vitals Date Recorded Body height Body temperature Body mass index (BMI) Body weight Respiratory rate Oxygen saturation Oxygen saturation in Arterial blood by Pulse oximetry Heart rate Systolic blood pressure Diastolic blood pressure Provider Name and Address Organization Details Last Updated DateTime 3 165.1 cm 97.8 [degF] 31.8 kg/m2 53077.1 4 g 16 /min 98 % 98 % 96 /min 118 mm[Hg] 78 mm[Hg] HARDEEP Galvan ME [employer] [facility] [employer] 3 11:09:06 Date Recorded Body mass index (BMI) Provider Name and Address Organization Details Last Updated DateTime 08/31/2023 29.6 kg/m2 SELENE Baires [address] [place] [address], [facility] [address], [place], [address], [employer] 09/20/2023 23:13:40 Date Recorded Body height Body weight Body temperature Heart rate Oxygen saturation Oxygen saturation in Arterial blood by Pulse oximetry Systolic blood pressure Diastolic blood pressure Provider Name and Address Organization Details Last Updated DateTime 3 165.1 cm 03196.4 4 g 96.7 [degF] 99 /min 98 % 98 % 118 mm[Hg] 78 mm[Hg] Nina Barcenas RN ME [employer] [facility] [employer] 3 15:46:44 Date Recorded Body mass index (BMI) Body height Oxygen saturation Oxygen saturation in Arterial blood by Pulse oximetry Heart rate Body temperature Body weight Systolic blood pressure Diastolic blood pressure Provider Name and Address Organization Details Last Updated DateTime 1 29 kg/m2 165.1 cm 98 % 98 % 90 /min 98 [degF] 54462.7 9 g 122 mm[Hg] 82 mm[Hg] Not Available [facility] 3 17:13:18 Date Recorded Body height Oxygen saturation Oxygen saturation in Arterial blood by Pulse oximetry Heart rate Respiratory rate Body temperature Body weight Systolic blood pressure Diastolic blood pressure Provider Name and Address Organization Details Last Updated DateTime 2 165.1 cm 98 % 98 % 97 /min 16 /min 97.3 [degF] 98502.8 1 g 122 mm[Hg] 80 mm[Hg] Not Available [facility] 3 17:13:18 Date Recorded Body mass index (BMI) Provider Name and Address Organization Details Last Updated DateTime 09/21/2023 29.3 kg/m2 SELENE Baires [address] [place] [address], [facility] [address], [place], [address], [place] [employer] 10/20/2023 23:36:46 Date Recorded Body height Body weight Body temperature Heart rate Oxygen saturation Oxygen saturation in Arterial blood by Pulse oximetry Systolic blood pressure Diastolic blood pressure Provider Name and Address Organization Details Last Updated DateTime 3 165.1 cm 57239.2 6 g 97.3 [degF] 88 /min 99 % 99 % 122 mm[Hg] 76 mm[Hg] Nina Barcenas RN ME [employer] [facility] [employer] 3 16:32:34 Social History Question Answer Notes LastModified by Organizat ion Details LastModified Time Tobacco Smoking Status Never Smoker Chanel Childs, HARDEEP null, [employer] [facility] [employer] 08/31/2023 15:43:07 Do You Have An Advance Directive? Yes [id number] Information not available 01/19/2023 If You Are , What Was Your Level Of Alcohol Consumption Prior To ? None [email or web address] Information not available 08/31/2023 Do You Wear A Helmet When Biking? Yes [email or web address] Information not available 08/31/2023 What Is Your Level Of Caffeine Consumption? Occasional [id number] Information not available 01/19/2023 In The 14 Days Before Symptom Onset, Have You Had Close Contact With A Laboratory-confirm ed COVID-19 While That Case Was Ill? No [email or web address] Information n ot available 08/31/2023 In The 14 Days Before Symptom Onset, Have You Had Close Contact With A Person Who Is Under Investigation For COVID-19 While That Person Was Ill? No Information not available 08/31/2023 What Type Of Diet Are You Following? REGULAR [id number] Information not available 01/19/2023 What Is The Highest Grade Or Level Of School You Have Completed Or The Highest Degree You Have Received? [id number] [email or web address] Information not available 08/31/2023 Are There Any Guns Present In Your Home? Yes [email or web address] Information not available 08/31/2023 Do You Use Insect Repellent Routinely? Yes [email or web address] Information not available 08/31/2023 Do You Have A Medical Power Of Drier Attendant? No [email or web address] Information not available 08/31/2023 What Is Your Relationship Status? [id number] Information not available 01/19/2023 Do You Use Your Seat Belt Or Car Seat Routinely? Yes [email or web address] Information not available 08/31/2023 Do You Have Smoke And Carbon Monoxide Detectors In Your Home? Yes [email or web address] Information not available 08/31/2023 Are You Passively Exposed To Smoke? No [email or web address] Information no t available 08/31/2023 Are There Any Smokers In Your House? No [email or web address] Information not available 08/31/2023 Do You Use Sunscreen Routinely? Yes [email or web address] Information not available 08/31/2023 Has Tobacco Cessation Counseling Been Provided? No [email or web address] Information not available 08/31/2023 Have You Recently Traveled Abroad? No [email or web address] Information not available 08/31/2023 Do You Have Any Dietary Restrictions? No [email or web address] Information not available 08/31/2023 Sex: Unknown Functional Status Question Answer Note LastModified by Organizat ion Details LastModified Time Do you use any illicit or recreational drugs? No [email or web address] Information not available 08/31/2023 Do you or have you ever used any other forms of tobacco or nicotine? No [email or web address] Information not available 08/31/2023 What is your level of alcohol consumption? None [id number] Information not available 01/19/2023 Are you currently employed? Yes [email or web address] Information not available 08/31/2023 What is your occupation? teacher [email or web address] Information not available 08/31/2023 What is your exercise level? Moderate [id number] Information not available 01/19/2023 Mental Status Question Answer Note LastModified by Organization D etails LastModified Time Do you feel stressed (tense, restless, nervous, or anxious, or unable to sleep at night)? [id number] [email or web address] Information not available 08/31/2023 Family History Relationship Description Onset Age of this Age Resolved Age Notes LastModified by Organization Details LastModified Time Father Obie [email or web address] [id number] Not available 01/19/2023 17:12:47 Medical History Condition Response ANXIETY DISORDER Y ASTHMA Y HEARTBURN / REFLUX Y HIGH CHOLESTEROL / HYPERLIPIDEMIA Y Gynecological History Statement/Question Response Menses Monthly Y Current Control Method None Sexually Active? Y Obstetrics History GPAL:G 2 P 0 0 0 1 Type Value Living 1 Total 2 Immunizations Vaccine Type Date Status Note Provider Nam e and Address Organization Details Recorded Time TST-PPD intradermal 5 completed Not Available [facility] 01/19/2023 17:14:56 Past Encounters Encounter ID Performer Location Encounter Start Date Encounter Closed Date Diagnosis/Indication Diagnosis SNOMED-CT Code Diagnosis ICD10 Code Diagnosis Note [id number] SELENE Baires [facility] [address] [place] [address] 09/21/2021 00:00:00 10/11/2021 14:43:10 [id number] SELENE Baires [facility] [address] [place] [address] 09/21/2022 00:00:00 09/21/2022 16:55:34 [id number] SELENE Baires [facility] [address] [place] [address] 05/03/2023 10:53:56 05/03/2023 12:25:40 Attention deficit hyperactivity disorder 931967583 F90.9 start vyvanse 20mg daily. f/u 1 month [id number] SELENE Baires [facility] [place] [address] [place] [address] 08/31/2023 15:42:58 08/31/2023 16:07:51 Nodule of subcutaneous tissue of left lower limb 8479670473 7657732 R22.42 check u/s LLE nonvascula r. may require MRI testing if the u/s is not sensitive Perioral dermatitis 2387 37013 L71.0 rx for triamcinol one cream 0.15 bid x 7-10 days only [id number] SELENE Baires [facility] [place] [address] [place] [address] 09/21/2023 16:22:31 09/21/2023 16:49:27 Adult health examination 757201757 Z00.01 well exam completed. labs ordered. Mixed hyperlipidemia 267 601353 E78.2 fasting lipids due. Hypothyroidism 49885242 E03.9 due for TFTs Diabetes m ellitus screening 629416807 Z13.1 Long-term drug therapy 460664272 Z79.899 Nodule of subcutaneous tissue of left lower limb 7369274431 9647551 R22.42 u/s did not reveal a diagnosis as to the 3 separate nodular areas on the right medial tibialis anterior region. will need to proceed with MRI RLE w/wo contrast to evaluate Attention deficit hyperactivity disorder 930708619 F90.9 stable on vyvanase 30mg daily Health Concerns Section Related Observation LastModified by Organization Detai ls LastModified Time None Recorded Concern Status LastModified by Organization Details LastModified Time None Recorded Advance Directives Directive Y: Payers Encounter Date Sequence Insurance Name Policy Number Policy Fraga Covered Member ID Fraga Member ID Guarantor Name 05/03/2023 1 [employer] [id number] Odalys Mandi [id number] Odalys Mandi 08/31/2023 1 [employer] [id number] Odalys Mandi [id number] Odalys Mandi 09/21/2023 1 [place] [id number] Odalys Mandi [id number] Odalys Mandi Notes Date Note Type Note Provider Name and Address Organization Details Recorded Time 09/21/20 21 text/ht ml HypothyroidismReported bypatient.Onset/Timing:better Context/Risk:normal thyroid levels; no history of head or neck radiation during childhood; no history of thyroid disease; no history of hypothyroidism; no history of hyperthyroidism; no excess iron exposure Exercisegets exercise Associated Symptoms:no cold intolerance; no heat intolerance; no weight loss; no weight gain; no double vision; no dry eyes; no hoarseness; no difficulty swallowing; no neck masses; no deepening of the voice; no fast heart rate; no increased blood pressure; no palpitations; no chest pain; no chest tightess or pressure; no constipation; no diarrhea; no vomiting; no decreased appetite; no loose stools; no irregular menstrual periods; no excessive sweating; no joint pain; no numbness; no tingling of the hands or feet; no dry skin; no tremor; no nervousness; no anxiety; no depression; no fatigue; no sleep difficulties; no skin changes; no hair changes Not Available [facility] [employer] [facility] 10/11/2021 14:43:10 09/21/20 22 text/ht ml HyperlipidemiaReported bypatient.Duration:chronic Control:usually well controlled Compliance:compliant; compliant with diet; exercises Complications:no coronary artery disease; no peripheral artery disease; no cardiovascular diseaseHypothyroidismReported bypatient.Quality:not changing Duration:constant Onset/Timing:still present Context/Risk:normal thyroid levels; no history of head or neck radiation during childhood; no history of thyroid disease; no history of hyperthyroidism; no excess iron exposure;history of hypothyroidism;female gender Exercisegets exercise Associated Symptoms:no cold intolerance; no heat intolerance; no weight loss; no weight gain; no double vision; no dry eyes; no hoarseness; no difficulty swallowing; no neck masses; no deepening of the voice; no fast heart rate; no increased blood pressure; no palpitations; no chest pain; no chest tightess or pressure; no constipation; no diarrhea; no vomiting; no decreased appetite; no loose stools; no irregular menstrual periods; no excessive sweating; no joint pain; no numbness; no tingling of the hands or feet; no dry skin; no tremor; no nervousness; no anxiety; no depression; no fatigue; no sleep difficulties; no skin changes; no hair changesNotes:not taking medication any longer and feels fine. Not Available [employer] 09/21/2022 16:55:34 05/03/20 text/ht ml Adult ADHDReported bypatient.ADHD Quality:unable to concentrate Timing of Symptoms:nearly every day; gradual onset ADHD Duration:noticed years ago but ready to do something for it. ADHD Context:increased productivity at work; improved school performance; able to set limits with obligations; no dysfunction in family; no financial problems;increased anxiety;increased depression;unable to set limits with obligations ADHD Severity:worse Modifying factors:havent done anything for it. ADHD Associated Symptoms Inattention:able to pay attention; well organized; does not make careless mistakes; not easily distracted; attention to detail; not forgetful; no difficulty focusing; not bored easily; no daydreaming; no confusion; no difficulty processing information; no difficulty following instructions;unable to pay attention;poorly organized;makes careless mistakes;easily distracted;forgetful;difficulty focusing;bored easily;daydreaming;easily confused;difficulty processing information;difficulty following instructions ADHD Associated Symptoms Impulsivity:patient; does not interrupt conversations/activities; does not blurt out inappropriate comments; shows emotion with restraint;impatient;interrupts conversations/activities;shows emotion without restraint ADHD Associated Symptoms Hyperactivity:does not fidget/squirm; no excessive talking; does not run/move in inappropriate situations; not constantly in motion; no difficulty with quiet tasks/activities;fidgets/squirms ;excessive talking;difficulty with quiet tasks/activities SELENE Baires [address] [facility] [address], [place], [address], [employer] 05/20/2023 23:03:06 08/31/20 23 text/ht ml pt c/o knot on woodard region near woodard bone. soft tissue nodule type feeling. no trauma, or fall . no skin discoloration. no pain. SELENE Baires [address], [place], [address], [employer] 09/20/2023 23:17:44 09/21/20 23 text/ht ml HyperlipidemiaReported bypatient.Control:usually well controlled; improving; at goal Compliance:compliant; compliant with diet; exercises Complications:no coronary artery disease; no peripheral artery disease; no cardiovascular diseaseHypothyroidismReported bypatient.Onset/Timing:better Context/Risk:normal thyroid levels; no history of head or neck radiation during childhood; no history of thyroid disease; no history of hypothyroidism; no history of hyperthyroidism; no excess iron exposure Exercisegets exercise Associated Symptoms:no cold intolerance; no heat intolerance; no weight loss; no weight gain; no double vision; no dry eyes; no hoarseness; no difficulty swallowing; no neck masses; no deepening of the voice; no fast heart rate; no increased blood pressure; no palpitations; no chest pain; no chest tightess or pressure; no constipation; no diarrhea; no vomiting; no decreased appetite; no loose stools; no irregular menstrual periods; no excessive sweating; no joint pain; no numbness; no tingling of the hands or feet; no dry skin; no tremor; no nervousness; no anxiety; no depression; no fatigue; no sleep difficulties; no skin changes; no hair changesReflux/GERDReported bypatient.Severity:improving Context:non-smoker; no drug/alcohol abuse; no drug alcohol withdrawal; not related to food/drink Associated Symptoms:no frequent coughing; no feeling of fullness/mass in throat; no hoarseness; no food getting stuck; no belching/burping; no vomiting; not vomiting blood; no regurgitation; no shortness of breath; no chest pain; no heartburn; no difficulty swallowing; no pain when swallowing; no bad taste; no decreased appetite; no weight loss; no black/tarry stools; no fatigue; no throat pain wellness SELENE Baires [address] [facility], [facility] [address], [place], [address], [facility] [employer] 10/20/2023 23:39:11 OBGyn Episode No OBEpisode recorded.
--- OUTSIDE RECORDS SUMMARY | 2025-05-01 10:14 | XMS_ITS | Clinical Summary ---
Author Organization [facility] Address [address] [place] [address] Phone Care Team Providers Care Laundry Technician Name Role Phone Maye Chen Primary Care Provider [phone] Cydney Beavers MD Unavailable [phone] Allergies Active Allergy Reactions Criticality Noted Date Comments Sulfa Antibiotics Hives 03/03/2016 Medications oxyCODONE-aceta minophen (PERCOCET) 5-325 MG Tablet Take 1-2 Tabs by mouth every 4 hours as needed for Pain. 40 Tab 0 6 Active Additional Information Patient not taking.Reported on 04/26/2016 Active Problems Problem Noted Date Diagnosed Date Biliary dyskinesia 03/08/2016 Family History Medical History Relation Name Comments High Cholesterol Father High Cholesterol Maternal Grandfather Diabetes Maternal Grandmother Stroke Paternal Grandfather Relation Name Status Comments Father Alive Maternal Grandfather Maternal Grandmother Mother Alive Paternal Grandfather Social History Tobacco Use Types Packs/Day Years Used Date Smoking Tobacco: Never Smokeless Tobacco: Never Alcohol Use Standard Drinks/Week Comments No 0 (1 standard drink = 0.6 oz pur e alcohol) Comments No Sex and Gender Information Value Date Recorded Sex Assigned at Not on file Legal Sex Female 3:51 PM CDT Gender Identity Not on file Sexual Orientation Not on file Last Filed Vital Signs Vital Sign Reading Time Taken Comments Blood Pressure 142/82 04/26/2016 9:27 AM CDT Pulse 76 04/26/2016 9:27 AM CDT Temperature 36.6 C (97.9 F) 04/26/2016 9:27 AM CDT Respiratory Rate 18 04/26/2016 9:27 AM CDT Oxygen Saturation 99% 03/30/2016 1:00 PM CDT Inhaled Oxygen Concentration - - Weight 82.4 kg (181 lb 9.6 oz) 04/26/2016 9:27 A M CDT Height 165.1 cm (5' 5) 04/26/2016 9:27 AM CDT Body Mass Index 30.22 04/26/2016 9:27 AM CDT Plan of Treatment Health Maintenance Due Date Last Done Comments Hepatitis C Virus (HCV) Screening 1985 TdaP Immunization 1985 Hepatitis B Immunization (1 of 3 - 19+ 3-dose series) 2004 Pap Smear 2006 Cervical Cancer Screening (CCS) 2015 HPV/Cotest 2015 Influenza Immunization (#1) 2024 SARS-COV-2 Immunization ( season) 2024 Respiratory Syncytial Virus (RSV) Immunization (Adult) (1 - 1-dose 75+ series) 2060 Meningococcal Immunization (ACWY) Aged Out No longer eligible based on patient's age to complete this topic Pneumococcal Immunization Combined Aged Out No longer eligible based on patient's age to complete this topic Rotavirus Immunization Aged Out No lo nger eligible based on patient's age to complete this topic Care Teams Laundry Technician Relationship Specialty Start Date End Date Maye Chen PA PCP - General Family Medicine 03/03/16 Cydney Beavers MD General Surgery 03/05/16
--- OUTSIDE RECORDS SUMMARY | 2025-05-01 10:14 | XMS_ITS | Clinical Summary ---
Author Organization [facility] Address [address] [place] [address] Care Team Providers Care Senior Construction Estimator Name Role Phone Unavailable Primary Care Provider Unavailabl e Source Comments [facility],non-owned Affiliates and Associated Physician Practices is amultiple site organization consisting of ambulatory clinics and hospital sitesin [place], [place], [place] and [place]. This disclosure is being madepursuant to the Care Everywhere program and may not contain all information available regarding this patient. Last updated 18.[facility] Allergies Active Allergy Reactions Criticality Noted Date Comments Sulfa Drugs 11/07/2017 Medications * Be aware that medications may not be up to date on this document. Alwaysverify current medications with the patient. raNITIdine (ZANTAC) 150 MG tablet Take 150 mg by mouth 09/11/2017 Active levothyroxine (SYNTHROID) 25 MCG tablet Take 25 mcg by mouth 10/21/2017 Active Social History Tobacco Use Types Packs/Day Years Used Date Smoking Tobacco: Never Smokeless Tobacco: Never Comments Unknown Sex and Gender Information Value Date Recorded Sex Assigned at Not on file Legal Sex Female 8:58 PM [employer] Gender Identity Not on file Sexual Orientation Not on file Last Filed Vital Signs Vital Sign Reading Time Taken Comments Blood Pressure 118/70 10/11/2020 10:32 AM [employer] Pulse 76 10/11/2020 10:32 AM [employer] Temperature 37 C (98.6 F) 10/11/2020 10:32 AM [employer] Respiratory Rate 16 10/11/2020 10:32 AM [employer] Oxygen Saturation 97% 10/11/2020 10:32 AM [employer] Inhaled Oxygen Concentration - - Weight 77.1 kg (170 lb) 10/11/2020 10:32 AM [employer] Height 165.1 cm (5' 5) 10/11/2020 10:32 AM [employer] Body Mass Index 28.29 10/11/2020 10:32 AM [employer] Plan of Treatment Health Maintenance Due Date Last Done Comments LIPID TESTING 1985 MAMMOGRAM 1985 HIV SCREENING 2000 HEPATITIS C SCREENING 01/12/2003 DTAP/TDAP/TD VACCINES (1 - Tdap) 2004 HEPATITIS B VACCINE (1 of 3 - 19+ 3-dose series) 2004 COVID-19 VACCINE ( - 2023-2 5 season) 2024 DEPRESSION SCREENING 11/21/2024 INFLUENZA VACCINE (Season Ended) 2025 ZOSTER VACCINE (1 of 2) 2035 HIB VACCINE Aged Out No longer eligi ble based on patient's age to complete this topic HPV VACCINE Aged Out No longer eligi ble based on patient's age to complete this topic MENINGOCOCCAL (Group B) VACC INE SHARED DECISION-MAKING Aged Out No longer eligibl e based on patient's age to complete this topic MENINGOCOCCAL GROUPS A/C/Y/W VACCINE Aged Out No longer eligible b ased on patient's age to complete this topic PNEUMOCOCCAL VACCINE Aged Out No long er eligible based on patient's age to complete this topic Insurance [facility] [employer]
== END 2025-05-01 09:23 | disposition home or self-care (01) ==
LOC: ANHIMG 09:25
PROVIDERS: PCP Physician Assistant; Visit Provider Nurse Practitioner
DX: Z12.31 Encounter for screening mammogram for malignant neoplasm of breast (principal); R92.8 Other abnormal and inconclusive findings on diagnostic imaging of breast
CPT/HCPCS: 77063; 77067

== ENCOUNTER 2025-05-22 10:58 | Outpatient (CLI) | payer BC, SELFPAY ==
--- NOTE | ~2025-05-22 | MM_ITS ---
EXAMINATION: MM diagnostic jonnie RT w sylwia HISTORY: Right breast asymmetry TECHNIQUE: Additional 3-D tomosynthesis images of the right breast were performed and synthetic 2-D i mages were generated. CAD analysis was submitted and interpreted. COMPARISON: 05/01/2025 BREAST PARENCHYMAL COMPOSITION:Not Dense. There are scattered areas of fibroglandular density. FINDINGS: Right breast asymmetry effaces with spot compression. No persistent mass lesion or distorti on seen. No suspicious microcalcification. IMPRESSION: No mammographic evidence for malignancy. BI-RADS Category 1: Negative Reviewed, dictated and finalized at location .
--- OUTSIDE RECORDS SUMMARY | 2025-05-22 11:14 | XMS_ITS | Data Portability ---
Author Organization [facility] [place] [facility] Address [address] [place] [address] Care Team Providers Care Senior Construction Estimator Name Role Phone ABRIL PETER OTHER RONEY GREEN Primary Care Provider [phone] BEKAH DESAI Baby Sitter Assessment No assessment recorded. Plan of Treatment Reminders Order Date Submit Date Provider Last Modified By Organization Details Last Modified Time Details Appointments VIDEO VISIT 15 2024 01:15P M SELENE Baires Not available Not available Not available Lab progester one, serum 2024 025 OLY Lang, [address], [place], [address], 12/13/2024 09:09:16 estrogen, total, serum 2024 025 OLY Lang, [address], [place], [address], 12/13/2024 09:09:17 testoster one, total, serum 2024 025 OLY Lang, [address], [place], [address], 12/13/2024 09:09:15 whole egg ige, serum 2024 025 OLY Lang, [address], [place], [address], 12/13/2024 09:09:14 TSH + free T4, serum 2024 025 OLY Lang, [address], [place], [address], 12/13/2024 09:09:12 T3, free, serum or plasma 2024 025 OLY Lang, [address], [place], [address], 12/13/2024 09:09:20 thyropero xidase Ab, serum 2024 025 OLY Lang, [address], [place], [address], 12/13/2024 09:09:18 iron + TIBC + ferritin, serum 2023 024 OLY Lang [address], [place], [address], 10/03/2024 06:37:44 vitamin D, 25-hydrox y, total, serum 2023 024 OLY Lang, [address], [place], [address], 10/03/2024 06:37:45 TSH + free T4, serum 2023 024 OLY Lang [address], [place], [address], 10/03/2024 06:37:38 CMP, serum or plasma 2023 024 OLY Lang [address], [place], [address], 10/03/2024 06:37:39 CBC w/ auto diff 2023 024 OLY Lang [address], [place], [address], 10/03/2024 06:37:43 vitamin B12 + folate, serum or blood 2023 024 OLY [facility], [address], [place], [address], 10/03/2024 06:37:40 HbA1c (hemoglob in A1c), blood 2023 024 OLY [facility], [address], [place], [address], 10/03/2024 06:37:42 lipid panel, serum 2023 024 DERBY [facility], [address], [place], [address], 10/03/2024 06:37:37 Referral None recorded. Procedures None recorded. Surgeries None recorded. Imaging None recorded. Medication Orders Vyvanse 30 mg capsule 2023 024 [email or web address] [facility] #[id number], [address], [place], [place], [id number], 09/17/2024 09:35:31 Vyvanse 30 mg capsule 2023 024 [email or web address] #[id number], [address], [place], [place], [id number], 09/17/2024 09:35:31 Patient TargetsNo targets recorded. Patient Instructions Encounter Date Encounter Id Patient Instructions Last Modified By Organization Details Last Modified Time 08/29/2024 [id number] A healthy lifestyle: care instructions [email or web address] Not available 08/29/2024 17:30:51 Reason for Referral None Reported. Results Created Date Observation Date Name Description Value Unit Range Abnormal Flag Note LastModifiedBy Organization Detail LastModifiedTime 10/01/20 24 10/02/2024 LIPID PANEL W/ CHOL/ HDL RATIO cholesterol, total 215 mg/dL 100-19 9 above high normal Not Available [facility] ([facility]) [address] [place], [address], 10/03/2024 06:37:37 10/01/20 24 10/02/2024 LIPID PANEL W/ CHOL/ HDL RATIO triglyceride s 152 mg/dL 0-149 above high normal Not Available [facility] ([facility]) [address] [place], [address], 10/03/2024 06:37:37 10/01/20 24 10/02/2024 LIPID PANEL W/ CHOL/ HDL RATIO HDL cholesterol 44 mg/dL >39 Not Available [facility] ([facility]) [address] [place], [address], 10/03/2024 06:37:37 10/01/20 24 10/02/2024 LIPID PANEL W/ CHOL/ HDL RATIO VLDL cholesterol shannan 27 mg/dL 5-40 Not Available [facility] ([facility]) [address] [place], [address], 10/03/2024 06:37:37 10/01/20 24 10/02/2024 LIPID PANEL W/ CHOL/ HDL RATIO LDL chol calc ([facility]) 144 mg/dL 0-99 above high normal Not Available [facility] ([facility]) [address] [facility], [place], [address], 10/03/2024 06:37:37 10/01/20 24 10/02/2024 LIPID PANEL W/ CHOL/ HDL RATIO T. chol/HDL ratio 4.9 ratio 0.0-4. 4 above high normal T. Chol/ HDL Ratio Men Women 1/2 Avg.R isk 3.4 3.3 Avg.R isk 5.0 4.4 2X Avg.R isk 9.6 7.1 3X Avg.R isk 23.4 11.0 Not Available [facility] ([facility]) [address] [place], [address], 10/03/2024 06:37:37 10/01/20 24 10/02/2024 TSH+F REE T4 TSH 2.710 uIU/m L 0.450- 4.500 Not Available [facility] ([facility]) [address] [place], [address], 10/03/2024 06:37:38 10/01/20 24 10/02/2024 TSH+F REE T4 T4,free(dire ct) 0.95 NG/dL 0.82-1 .77 Not Available [facility] ([facility]) [address] [place], [address], 10/03/2024 06:37:38 10/01/20 24 10/02/2024 COMP. METAB OLIC PANEL (14) glucose 83 mg/dL 70-99 Not Available [facility] ([facility]) [address] [place], [address], 10/03/2024 06:37:39 10/01/20 24 10/02/2024 COMP. METAB OLIC PANEL (14) BUN 8 mg/dL 6-20 Not Available [facility] ([facility]) [address] [place], [address], 10/03/2024 06:37:39 10/01/20 24 10/02/2024 COMP. METAB OLIC PANEL (14) creatinine 0.73 mg/dL 0.57-1 .00 Not Available [facility] ([facility]) [address] [place], [address], 10/03/2024 06:37:39 10/01/20 24 10/02/2024 COMP. METAB OLIC PANEL (14) eGFR 107 mL/mi n/1.7 3 >59 Not Available [facility] ([facility]) [address] [place], [address], 10/03/2024 06:37:39 10/01/20 24 10/02/2024 COMP. METAB OLIC PANEL (14) BUN/creatini ne ratio 11 9- Not Available [facility] ([facility]) [address] [place], [address], 10/03/2024 06:37:39 10/01/20 24 10/02/2024 COMP. METAB OLIC PANEL (14) sodium 139 mmol/ L 134-14 4 Not Available [facility] ([facility]) [address] [place], [address], 10/03/2024 06:37:39 10/01/20 24 10/02/2024 COMP. METAB OLIC PANEL (14) potassium 4.3 mmol/ L 3.5-5. 2 Not Available [facility] ([facility]) [address] [place], [address], 10/03/2024 06:37:39 10/01/20 24 10/02/2024 COMP. METAB OLIC PANEL (14) chloride 103 mmol/ L 96-106 Not Available [facility] ([facility]) [address] [place], [address], 10/03/2024 06:37:39 10/01/20 24 10/02/2024 COMP. METAB OLIC PANEL (14) carbon dioxide, total 23 mmol/ L 20-29 Not Available [facility] ([facility]) [address] [place], [address], 10/03/2024 06:37:39 10/01/20 24 10/02/2024 COMP. METAB OLIC PANEL (14) calcium 9.4 mg/dL 8.7-10 .2 Not Available [facility] ([facility]) [address] [place], [address], 10/03/2024 06:37:39 10/01/20 24 10/02/2024 COMP. METAB OLIC PANEL (14) protein, total 6.7 g/dL 6.0-8. 5 Not Available [facility] ([facility]) [address] [place], [address], 10/03/2024 06:37:39 10/01/20 24 10/02/2024 COMP. METAB OLIC PANEL (14) albumin 4.4 g/dL 3.9-4. 9 Not Available [facility] ([facility]) [address] [place], [address], 10/03/2024 06:37:39 10/01/20 24 10/02/2024 COMP. METAB OLIC PANEL (14) globulin, total 2.3 g/dL 1.5-4. 5 Not Available [facility] ([facility]) [address] [place], [address], 10/03/2024 06:37:39 10/01/20 24 10/02/2024 COMP. METAB OLIC PANEL (14) bilirubin, total 0.5 mg/dL 0.0-1. 2 Not Available [facility] ([facility]) [address] [facility], [place], [address], 10/03/2024 06:37:39 10/01/20 24 10/02/2024 COMP. METAB OLIC PANEL (14) alkaline phosphatase 71 IU/L 44-121 Not Available [facility] ([facility]) [address] [place], [address], 10/03/2024 06:37:39 10/01/20 24 10/02/2024 COMP. METAB OLIC PANEL (14) AST (SGOT) 18 IU/L 0-40 Not Available [facility] ([facility]) [address] [place], [address], 10/03/2024 06:37:39 10/01/20 24 10/02/2024 COMP. METAB OLIC PANEL (14) ALT (SGPT) 15 IU/L 0-32 Not Available [facility] ([facility]) [address] [place], [address], 10/03/2024 06:37:39 10/01/20 24 10/02/2024 VITAM IN B12 AND FOLAT E vitamin B12 562 pg/mL 232-12 45 Not Available [facility] ([facility]) [address] [facility], [place], [address], 10/03/2024 06:37:40 10/01/20 24 10/02/2024 VITAM IN B12 AND FOLAT E folate (folic acid), serum 7.1 NG/mL >3.0 A serum folat e aman ntrat ion of less than 3.1 ng/mL is consi dered to repre sent clini shannan defic iency . Not Available [facility] ([facility]) [address] [place], [address], 10/03/2024 06:37:40 10/01/20 24 10/02/2024 HEMOG LOBIN A1C hemoglobin A1C 5.1 % 4.8-5. 6 Predi abete s: 5.7 - 6.4 Diabe olvin: >6.4 Glyce jose daniel contr ol for adult s with diabe olvin: <7.0 Not Available [facility] ([facility]) [address] [facility], [place], [address], 10/03/2024 06:37:41 10/01/20 24 10/02/2024 CBC WITH DIFFE RENTI AL/PL ATELE T WBC 6.1 x10e3 /uL 3.4-10 .8 Not Available [facility] ([facility]) [address] [facility], [place], [address], 10/03/2024 06:37:43 10/01/20 24 10/02/2024 CBC WITH DIFFE RENTI AL/PL ATELE T RBC 4.78 x10e6 /uL 3.77-5 .28 Not Available [facility] ([facility]) [address] [place], [address], 10/03/2024 06:37:43 10/01/20 24 10/02/2024 CBC WITH DIFFE RENTI AL/PL ATELE T hemoglobin 14.5 g/dL 11.1-1 5.9 Not Available [facility] ([facility]) [address] [facility], [place], [address], 10/03/2024 06:37:43 10/01/20 24 10/02/2024 CBC WITH DIFFE RENTI AL/PL ATELE T hematocrit 43.4 % 34.0-4 6.6 Not Available [facility] ([facility]) [address] [facility], [place], [address], 10/03/2024 06:37:43 10/01/2010/02/2024 CBC WITH DIFFE RENTI AL/PL ATELE T MCV 91 fL 79-97 Not Available [facility] ([facility]) [address] [facility], [place], [address], 10/03/2024 06:37:43 10/01/20 24 10/02/2024 CBC WITH DIFFE RENTI AL/PL ATELE T MCH 30.3 pg 26.6-3 3.0 Not Available [facility] ([facility]) [address] [facility], [place], [address], 10/03/2024 06:37:43 10/01/20 24 10/02/2024 CBC WITH DIFFE RENTI AL/PL ATELE T MCHC 33.4 g/dL 31.5-3 5.7 Not Available [facility] ([facility]) [address] [place], [address], 10/03/2024 06:37:43 10/01/20 24 10/02/2024 CBC WITH DIFFE RENTI AL/PL ATELE T RDW 12.7 % 11.7-1 5.4 Not Available [facility] ([facility]) [address] [place] [address], [address], 10/03/2024 06:37:43 10/01/20 24 10/02/2024 CBC WITH DIFFE RENTI AL/PL ATELE T platelets 255 x10e3 /uL 150-45 0 Not Available [facility] ([facility]) [address] [facility], [place], [address], 10/03/2024 06:37:43 10/01/20 24 10/02/2024 CBC WITH DIFFE RENTI AL/PL ATELE T neutrophils 57 % notest ab. Not Available [facility] ([facility]) [address] [facility], [place], [address], 10/03/2024 06:37:43 10/01/20 24 10/02/2024 CBC WITH DIFFE RENTI AL/PL ATELE T lymphs 34 % notest ab. Not Available [facility] ([facility]) [address] [facility], [place], [address], 10/03/2024 06:37:43 10/01/20 24 10/02/2024 CBC WITH DIFFE RENTI AL/PL ATELE T monocytes 7 % notest ab. Not Available [facility] ([facility]) [address] [facility], [place], [address], 10/03/2024 06:37:43 10/01/20 24 10/02/2024 CBC WITH DIFFE RENTI AL/PL ATELE T eos 1 % notest ab. Not Available [facility] ([facility]) [address] [facility], [place], [address], 10/03/2024 06:37:43 10/01/20 24 10/02/2024 CBC WITH DIFFE RENTI AL/PL ATELE T basos 1 % notest ab. Not Available [facility] ([facility]) [address] [place], [address], 10/03/2024 06:37:43 10/01/20 24 10/02/2024 CBC WITH DIFFE RENTI AL/PL ATELE T neutrophils (absolute) 3.5 x10e3 /uL 1.4-7. 0 Not Available [facility] ([facility]) [address] [facility], [place], [address], 10/03/2024 06:37:43 10/01/20 24 10/02/2024 CBC WITH DIFFE RENTI AL/PL ATELE T lymphs (absolute) 2.1 x10e3 /uL 0.7-3. 1 Not Available [facility] ([facility]) [address] [facility], [place], [address], 10/03/2024 06:37:43 10/01/20 24 10/02/2024 CBC WITH DIFFE RENTI AL/PL ATELE T monocytes(ab solute) 0.4 x10e3 /uL 0.1-0. 9 Not Available [facility] ([facility]) [address] [facility], [place], [address], 10/03/2024 06:37:43 10/01/20 24 10/02/2024 CBC WITH DIFFE RENTI AL/PL ATELE T eos (absolute) 0.1 x10e3 /uL 0.0-0. 4 Not Available [facility] ([facility]) [address] [facility], [place], [address], 10/03/2024 06:37:43 10/01/20 24 10/02/2024 CBC WITH DIFFE RENTI AL/PL ATELE T baso (absolute) 0.1 x10e3 /uL 0.0-0. 2 Not Available [facility] ([facility]) [address] [place], [address], 10/03/2024 06:37:43 10/01/20 24 10/02/2024 CBC WITH DIFFE RENTI AL/PL ATELE T immature granulocytes 0 % notest ab. Not Available [facility] ([facility]) [address] [facility], [place], [address], 10/03/2024 06:37:43 10/01/20 24 10/02/2024 CBC WITH DIFFE RENTI AL/PL ATELE T immature grans (abs) 0.0 x10e3 /uL 0.0-0. 1 Not Available [facility] ([facility]) [address] [place], [address], 10/03/2024 06:37:43 10/01/20 24 10/02/2024 FE+TI BC+FE R iron bind.cap.(TI BC) 257 ug/dL 250-45 0 Not Available [facility] ([facility]) [address] [facility], [place], [address], 10/03/2024 06:37:44 10/01/20 24 10/02/2024 FE+TI BC+FE R UIBC 181 ug/dL 131-42 5 Not Available [facility] ([facility]) [address] [place], [address], 10/03/2024 06:37:44 10/01/20 24 10/02/2024 FE+TI BC+FE R iron 76 ug/dL 27-159 Not Available [facility] ([facility]) [address] [place], [address], 10/03/2024 06:37:44 10/01/20 24 10/02/2024 FE+TI BC+FE R iron saturation 30 % 15-55 Not Available [facility] ([facility]) [address] [place], [address], 10/03/2024 06:37:44 10/01/20 24 10/02/2024 FE+TI BC+FE R ferritin 61 NG/mL 15-150 Not Available [facility] ([facility]) [address] [place], [address], 10/03/2024 06:37:44 10/01/20 24 10/03/2024 VITAM IN [...] 1. IOM (Inst itute of Medic ine). 2009. Natalee ry refer ence jesús es for calci um and D. Soco manning [place]: [facility] . 2. Marlena sotelo [place], Jaki huggins [place], Pablo off-F errar i GARNETT, et al. Evalu ation , treat ment, and preve ntion of vitam in D defic iency : an Endoc rine Socie ty clini shannan pract ice guide line. JCEM. 2010; 96(7) :1911 -30. Not Available [facility] ([facility]) [address] [place], [address], 10/03/2024 06:37:45 12/10/19 25 12/11/2024 TSH+F REE T4 TSH 2.160 uIU/m L 0.450- 4.500 Not Available [facility] ([facility]) [address] [place], [address], 12/13/2024 09:09:12 12/10/19 25 12/11/2024 TSH+F REE T4 T4,free(dire ct) 0.93 NG/dL 0.82-1 .77 Not Available [facility] ([facility]) [address] [place], [address], 12/13/2024 09:09:12 12/10/19 25 12/13/2024 F245- IGE EGG, WHOLE F879-YwZ egg, whole <0.10 kU/L class0 Level s [...] >100. 00 Very High Not Available [facility] ([facility]) [address] [place], [address], 12/13/2024 09:09:14 12/10/1912/11/2024 TESTO STERO NE testosterone 21 NG/dL 8-60 Not Available [facility] ([facility]) [address] [place], [address], 12/13/2024 09:09:15 12/10/1912/11/2024 PROGE STERO NE progesterone 10.2 NG/mL Folli cular phase 0.1 - 0.9 Lutea l phase 1.8 - 23.9 Ovula tion phase 0.1 - 12.0 Pregn ant First trime ster 11.0 - 44.3 Secon d trime ster 25.4 - 83.3 Third trime ster 58.7 - 214.0 Postm enopa usal 0.0 - 0.1 Not Available [facility] ([facility]) [address] [place], [address], 12/13/2024 09:09:16 12/10/1912/11/2024 ESTRO GENS, TOTAL estrogens, total 322 pg/mL Prepu carol l < 40 Femal e Cycle : 1-10 Days 16 - 328 11-20 Days 34 - 501 21-30 Days 48 - 350 Post- Menop ausal 40 - 244 Not Available [facility] ([facility]) [address] [place], [address], 12/13/2024 09:09:17 12/10/1912/11/2024 THYRO ID ANTIB ODIES thyroid peroxidase (tpo) Ab 10 IU/mL 0-34 Not Available [facility] ([facility]) [address] [facility], [place], [address], 12/13/2024 09:09:18 12/10/19 25 12/11/2024 THYRO ID [...] at very low level s. The assay benito actur er has found that four perce nt of indiv idual s witho ut evide nce of thyro id disea se or autoi mmuni ty will have posit grant TgAb level s up to 4 IU/mL . Not Available [facility] ([facility]) [address] [facility], [place], [address], 12/13/2024 09:09:18 12/10/19 25 12/11/2024 TRIIO DOTHY MOODY E (T3), FREE triiodothyro nine (T3), free 2.7 pg/mL 2.0-4. 4 Not Available [facility] ([facility]) [address] [facility], [place], [address], 12/13/2024 09:09:20 02/02/20 25 01/31/2025 US, thyro id No observ ation record ed. [facility] [address], [place], [address], 02/04/2025 16:50:44 05/01/20 25 05/01/2025 MAMMO , scree talisha, digit al, bilat eral No observ ation record ed. [facility] [address], [place], [address], 05/14/2025 15:57:43 Result Notes None recorded. Problems Name Problem SNOMED Code Status Onset Date Resolution Date Notes Provider Name and Address Organization Details Recorded Time Adult attention deficit hyperactivity disorder 325712003 Active 2023 SELENE Baires Attn: Accounttimothy g,[address] [facility], [place], [address], [place] - [facility] 4 14:40:52 Sebaceous cyst of skin of breast 74895853 Active 2023 SELENE Baires Attn: Accountin g,[address] [facility], [place], [address], [place] [facility] 4 14:40:53 Long-term drug therapy Active 2023 SELENE Baires Attn: Accountin g,[address] 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, [place], [address], [place] [facility] 4 01:49:23 Body mass index 25-29 - overweight 067909207 Active 2023 Ramesh Carias MA null, [place] - [facility] 4 16:46:07 Hyperlipidemia 32303529 Active 2023 SELENE Baires Attn: Accountin g,[address] [facility], [place], [address], [place] [facility] 4 23:33:18 Overweight 340999319 Active 2023 SELENE Baires Attn: Accountin g,[address] [facility], [place], [address], [place] [facility] 4 23:33:36 Family history of hemochromatosi s 951387740 Active 2023 SELENE Baires Attn: Accountin g,[address] [facility], [place], [address], [place] [facility] 4 23:33:59 Vitamin D deficiency 67556866 Active 2023 SELENE Baires Attn: Missy g,[address] [facility], [place], [address], [place] [facility] 4 23:34:00 Cyst of thyroid 59294670 Active 2024 SELENE Baires Attn: Missy g,[address] [facility], [place], [address], [place] - [facility] 5 12:43:34 Anxiety 17014477 Active DENZEL Mackey, [place] - [facility] 5 16:12:46 Problem Notes None recorded. Procedures Surgical History Date Name Laterality Status Provider Name and Address Organization Details Recorded Time 11/21/19 14 Date of Last Pap Smear completed Rachel Zhong [place] 03/25/2015 16:13:07 11/21/19 13 Other completed Rachel Zhong [place] 03/25/2015 16:12:46 11/21/18 95 Tonsillectomy completed Rachel Zhong [place] [facility] 03/25/2015 16:12:46 Imaging Results None recorded. Procedure Notes None recorded. Medical Equipment None Reported. Allergies Allergen ID Allergen Name Allergen Category Reaction Reaction Severity Criticality Documentation Date Start Date Code Code System Note Provider Name and Address Organization Details Recorded Time 465370 codeine medicatio n Not available Not available Not available 08/29/2024 2670 RxNorm DENZEL Moser, [place] - [facility] 4 16:43:52 [id number] blackberr y allergeni c extract food Not available Not available Not available 08/29/2024 50991 8 RxNoDENZEL Osorio, [place] - [facility] 4 16:43:59 691907 strawberr y allergeni c extract food Not available Not available Not available 08/29/2024 35878 4 RxNorm DENZEL Moser, [place] - [facility] 4 16:44:04 79559 Substance with sulfonami de structure and antibacte rial mechanism of action (substanc e) medicatio n Not available Not available Not available 03/25/2015 18609 8003 SNOMED Rachel Zhong MA null, [place] - [facility] 5 16:10:30 Medications Name Sig Start Date [...] Available Not Available Vyvanse 40 mg capsule TAKE 1 CAPSULE BY MOUTH EVERY DAY active Not Available Not Available No t Available Vicodin 5 mg-300 mg tablet 03/25 completed Not Available Not Available Not Available Vitals Date Recorded Systolic blood pressure Diastolic blood pressure Provider Name and Address Organization Details Last Updated DateTime 12/04/2024 110 mm[Hg] 80 mm[Hg] SELENE Baires Attn: Accounting,[address] [place], [address], [facility] 12/04/2024 16:42:56 Date Recorded Body height Body mass index (BMI) Body weight Respiratory rate Oxygen saturation Oxygen saturation in Arterial blood by Pulse oximetry Heart rate Systolic blood pressure Diastolic blood pressure Provider Name and Address Organization Details Last Updated DateTime 5 165.1 cm 28.3 kg/m2 28520.7 g 18 /min 100 % 100 % 95 /min 106 mm[Hg] 72 mm[Hg] Ramesh Carias MA [facility] 5 16:24:13 Date Recorded Systolic blood pressure Diastolic blood pressure Systolic blood pressure Diastolic blood pressure Provider Name and Address Organization Details Last Updated DateTime 02/28/2024 118 mm[Hg] 80 mm[Hg] 120 mm[Hg] 80 mm[Hg] SELENE Baires Attn: Accounting ,[address] [place], [address] , [facility] 4 14:32:24 Date Recorded Body height Respiratory rate Body mass index (BMI) Body weight Oxygen saturation Oxygen saturation in Arterial blood by Pulse oximetry Heart rate Systolic blood pressure Diastolic blood pressure Provider Name and Address Organization Details Last Updated DateTime 4 165.1 cm 18 /min 28.3 kg/m2 37652.7 g 99 % 99 % 88 /min 124 mm[Hg] 82 mm[Hg] Ramesh Carias MA [facility] 4 14:07:04 Date Recorded Body height Provider Name an d Address Organization Details Last Updated DateTime 03/05/2025 165.1 cm Ramesh Carias MA [facility] 2024 12:20:17 Date Recorded Respiratory rate Systolic blood pressure Diastolic blood pressure Provider Name and Address Organization Details Last Updated DateTime 07/09/2024 18 /min 124 mm[Hg] 82 mm[Hg] SELENE Baires Attn: Accounting, [address] [place], [address], [facility] 07/09/2024 14:40:20 Date Recorded Body height Body mass index (BMI) Body weight Heart rate Oxygen saturation Oxygen saturation in Arterial blood by Pulse oximetry Systolic blood pressure Diastolic blood pressure Provider Name and Address Organization Details Last Updated DateTime 4 165.1 cm 28.3 kg/m2 30964.7 g 87 /min 98 % 98 % 136 mm[Hg] 70 mm[Hg] Bernadette Madrid MA [facility] 4 14:24:44 Date Recorded Systolic blood pressure Diastolic blood pressure Systolic blood pressure Diastolic blood pressure Provider Name and Address Organization Details Last Updated DateTime 08/29/2024 120 mm[Hg] 80 mm[Hg] 110 mm[Hg] 80 mm[Hg] SELENE Baires Attn: Accounting ,[address] [place], [address] , [facility] 4 17:25:53 Date Recorded Body height Body mass index (BMI) Body weight Respiratory rate Oxygen saturation Oxygen saturation in Arterial blood by Pulse oximetry Heart rate Systolic blood pressure Diastolic blood pressure Provider Name and Address Organization Details Last Updated DateTime 4 165.1 cm 28.1 kg/m2 30276.1 1 g 18 /min 99 % 99 % 88 /min 126 mm[Hg] 72 mm[Hg] Ramesh Carias MA [facility] 4 16:49:15 Social History Question Answer Notes LastModified by Organizat ion Details LastModified Time Tobacco Smoking Status Never Smoker Rachel Zhong MA null, [facility] 03/25/2015 16:12:46 Do You Have An Advance Directive? No Information n ot available 08/29/2024 Are You Blind Or Do You Have Difficulty Seeing? No Glasses Information n ot available 02/28/2024 What Is Your Level Of Caffeine Consumption? Heavy [email or web address] Information not available 03/25/2015 In The 14 [...] Or The Highest Degree You Have Received? [id number] Information not available 02/28/2024 Are There Any Guns Present In Your Home? No Information not available 02/28/2024 Live Alone Or With Others? With Others [email or web address] Information not available 03/25/2015 Do You Have [...] How Many Children Do You Have? 0 [email or web address] Information not available 03/25/2015 Do You Use Your Seat Belt Or Car Seat Routinely? Yes Information not available 02/28/2024 Smoke Alarm In Home Yes [email or web address] Information not available 03/25/2015 Do You Have [...] you able to care for yourself? Yes [email or web address] Information n ot available 03/25/2015 What is your occupation? teacher Information not available 02/28/2024 What is your exercise level? None Information not available 02/28/2024 Mental Status None recorded. Family History Relationship Description Onset Age of this Age Resolved Age Notes LastModified by Organization Details LastModified Time Father Obie [email or web address] Not available 03/25 16:12:46 Medical History Condition Response Asthma Y GI Problems Y High Cholesterol Y Gynecological History Statement/Question Response Abnormal Pap [...] Recorded Time Tdap 11/21/2010 completed DENZEL Mackey, [place]INE[place] - [facility] 03/25/2015 16:12:46 MMR 01/25/2019 completed DENZEL Moser, [place] - [facility] 08/28/2024 17:07:25 Past Encounters Encounter ID Performer Location Encounter Start Date Encounter Closed Date Diagnosis/Indication Diagnosis SNOMED-CT Code Diagnosis ICD10 Code Diagnosis Note [id number] Sami Chase MD [facility] ([facility]) [address] [place] [address] 03/25/2015 15:56:36 03/25/2015 16:45:16 History of anxiety state 842220703 History of depression [id number] Rafat Fletcher MD [facility] [employer] Mohit Chapman [address] [place] [address] 02/28/2024 10:14:06 02/28/2024 14:37:46 Attention deficit hyperactivity disorder, 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 Excellent [...] review. refill on branded vyvanse only Hyperlipidemia 24904934 E78.5 labs improved from September. still a bit above goal but improving. Long-term drug therapy 208488583 Z79.899 UTD on labs. [id number] Rafat Fletcher MD [facility] [employer] Mohit Chapman [address] [place] [address] 07/09/2024 14:16:10 07/09/2024 14:53:42 Sebaceous cyst of skin of breast 14421849 N60.89 Patient should apply warm compresses to [...] with a sebaceous cyst. Long-term drug therapy 136933660 Z79.899 UTD on labs. Attention deficit hyperactivity disorder, predominantly inattentive type 52899518 F90.0 stable on vyvanse 30mg daily. Excellent [...] only Refill on Vyvanse 30 mg daily [id number] Rafat Fletcher MD [facility] [employer] [facility] [place] [address] [place] [address] 08/29/2024 16:26:36 09/03/2024 14:33:27 Adult attention deficit hyperactivity disorder 805178693 F90.9 Patient is very stable on Vyvanse 40 mg daily. Controlled substance contract has been signed and in place and follow-up in 3 months scheduled Body mass index 25-29 - overweight 861170369 Z68.28 BMI is 28.1 Overweight 517284181 E66 .3 Patient has had great weight loss and her BMI has come down with her efforts. Adult heal th examination 155080359 Z00.00 Annual wellness exam completed Hyperlipidemia 08269806 E78.5 Diet and exercise management for hyperlipid emia. She is due for an updated fasting lab Long-term drug therapy 762888939 Z79.899 cmp, cbc and b12, folate labs are due Diabetes m ellitus screening 358899838 Z13.1 Annual diabetes screening is ordered Thyroid di sorder screening 387865024 Z13.29 Routine thyroid function testing ordered Vitamin D deficiency 347 73548 E55.9 Vitamin-D lab is due with history of deficiency Family his tory of hemochromatosis 155593299 Z83.49 Family member has been diagnosed with hemochroma tosis so we will check iron studies on next labs [id number] Rafat Fletcher MD [facility] [employer] [facility] [place] [address] [place] [address] 12/04/2024 16:17:03 12/17/2024 14:57:09 Adult attention deficit hyperactivity disorder 612700163 F90.9 Patient is very stable on Vyvanse 40 mg daily. Controlled substance contract has been signed and in place and follow-up in 3 months scheduled Long-term drug therapy 976283597 Z79.899 Thyroid di sorder screening 588785645 Z13.29 Routine thyroid function testing ordered Allergy to food 87927081 1 Z91.018 Screening IgE for whole egg has been ordered Hormone abnormality 8445 2003 R89.1 Patient request progestero ne estrogen and testostero ne [id number] Rafat Fletcher MD [facility] - [facility]it Chapman [address] [place] [address] 03/05/2025 12:15:22 03/05/2025 13:01:08 Adult attention deficit hyperactivity disorder 674749143 F90.9 Patient is very stable on Vyvanse 40 mg daily. Controlled substance contract has been signed and in place and follow-up in 3 months scheduled Cyst of thyroid 51247736 E04.1 Ultrasound reviewed small mixed cyst suggesting that no follow-up is needed but discussed with the patient I would prefer doing another ultrasound in 12-18 months. Long-term drug therapy 013791467 Z79.899 Health Concerns Section Related Observation LastModified by Organization Detai ls LastModified Time None Recorded Concern Status LastModified by Organization Details LastModified Time None Recorded Advance Directives Directive N: Payers Insurance Date Sequence Insurance Name Policy Number Policy Fraga Covered Member ID Fraga Member ID Guarantor Name 03/25/2025 1 [facility] [id number] Odalys Amor Mandi [id number] Odalys Schaferfill 02/28/2024 1 [facility] [id number] Odalys Amor Mandi [id number] Odalys Rayomnd Notes Date Note Type Note Provider Name [...] loss managed. SELENE Baires Attn: Accounting,[address] [facility], [place], [address], [facility] 03/06/2024 12:43:53 07/09/2024 text/html Generic [...] f/u today. SELENE Baires Attn: Accounting,[address] [facility], [place], [address], [facility] 07/22/2024 01:49:39 08/29/2024 text/html Generic [...] loss managed. SELENE Baires Attn: Accounting,[address] [facility], [place], [address], [facility] 09/18/2024 23:34:31 12/04/2024 text/html Generic HPI TemplateReported [...] overall mood. SELENE Baires Attn: Accounting,[address] [facility], [place], [address], [facility] 12/22/2024 08:36:43 03/05/2025 text/html Generic HPI TemplateReported [...] control . SELENE Baires Attn: Accounting,[address] [facility], [place], [address], [facility] 03/24/2025 12:54:25 OBGyn Episode No OBEpisode recorded.
--- OUTSIDE RECORDS SUMMARY | 2025-05-22 11:14 | XMS_ITS | Data Portability ---
Author Organization [place] - [facility], Main Office Address [address] [place] [address] Assessment No assessment recorded. Plan of Treatment Reminders Order Date Submit Date Provider Last Modified By Organization Details Last Modified Time Details Appointments None recorded. Lab lipid panel, serum 2022 023 [facility], [address], [place], [address], 3 06:17:18 CMP, serum or plasma 2022 023 [facility], [address], [place], [address], 3 06:17:19 CBC w/ auto diff 2022 023 [facility], [address], [place], [address], 3 06:17:22 TSH + free T4, serum 2022 023 [facility], [address], [place], [address], 3 06:17:17 T3, free, serum or plasma 2022 023 [facility], [address], [place], [address], 3 06:17:21 HbA1c (hemoglobin A1c), blood 2022 023 [facility], [address], [place], [address], 3 06:17:20 Referral None recorded. Procedures None recorded. Surgeries None recorded. Imaging MRI, lower leg, w/wo contrast - approved [id number] 10/10/2023 - 12/08/20232022 023 [facility], [address], [place], [address], 3 09:17:15 US, lower extremity, nonvascular , limited 2022 023 [facility], [address], [place], [address], 3 09:56:10 Medication Orders triamcinolo ne acetonide 0.1 % topical cream 2022 023 [id number], [address], [place], [id number], 3 16:04:27 Vyvanse 20 mg capsule 2022 023 [email or web address][id number], [address], [place], [id number], 3 10:28:42 Patient TargetsNo targets recorded. Patient [...] with diabe olvin: <7.0 Not Available [facility] ([facility]) [address] [facility], [place], [address], 10/03/2021 06:13:34 10/02/20 21 10/03/2021 LIPID PANEL WITH LDL/H DL RATIO cholesterol, total 212 mg/dL 100-19 9 above high normal Not Available [facility] ([facility]) [address] [facility], [place], [address], 10/03/2021 06:13:34 10/02/20 21 10/03/2021 LIPID PANEL WITH LDL/H DL RATIO triglyceride s 139 mg/dL 0-149 Not Available [facility] ([facility]) [address] [facility], [place], [address], 10/03/2021 06:13:34 10/02/20 21 10/03/2021 LIPID PANEL WITH LDL/H DL RATIO HDL cholesterol 39 mg/dL >39 below low normal Not Available [facility] ([facility]) [address] [facility], [place], [address], 10/03/2021 06:13:34 10/02/20 21 10/03/2021 LIPID PANEL WITH LDL/H DL RATIO VLDL cholesterol shannan 25 mg/dL 5-40 Not Available [facility] ([facility]) [address], [place], [address], 10/03/2021 06:13:34 10/02/20 21 10/03/2021 LIPID PANEL WITH LDL/H DL RATIO LDL chol calc ([facility]) 148 mg/dL 0-99 above high normal Not Available [facility] ([facility]) [address] [place], [address], 10/03/2021 06:13:34 10/02/20 21 10/03/2021 LIPID PANEL WITH LDL/H DL RATIO comment: brim blocker Not Available [facility] ([facility]) [address], [place], [address], 10/03/2021 06:13:34 10/02/20 21 10/03/2021 LIPID PANEL WITH LDL/H DL RATIO LDL/HDL ratio 3.8 ratio 0.0-3. 2 above high normal LDL/H DL Ratio Men Women 1/2 Avg.R isk 1.0 1.5 Avg.R isk 3.6 3.2 2X Avg.R isk 6.2 5.0 3X Avg.R isk 8.0 6.1 Not Available [facility] ([facility]) [address], [place], [address], 10/03/2021 06:13:34 10/02/20 21 10/03/2021 CBC WITH DIFFE RENTI AL/PL ATELE T WBC 6.6 x10e3 /uL 3.4-10 .8 Not Available [facility] ([facility]) [address] [place], [address], 10/03/2021 06:13:33 10/02/20 21 10/03/2021 CBC WITH DIFFE RENTI AL/PL ATELE T RBC 4.74 x10e6 /uL 3.77-5 .28 Not Available [facility] ([facility]) [address] [facility], [place], [address], 10/03/2021 06:13:33 10/02/20 21 10/03/2021 CBC WITH DIFFE RENTI AL/PL ATELE T hemoglobin 14.6 g/dL 11.1-1 5.9 Not Available [facility] ([facility]) [address] [place], [address], 10/03/2021 06:13:33 10/02/20 21 10/03/2021 CBC WITH DIFFE RENTI AL/PL ATELE T hematocrit 42.8 % 34.0-4 6.6 Not Available [facility] ([facility]) [address] [place] [address], [address], 10/03/2021 06:13:33 10/02/20 21 10/03/2021 CBC WITH DIFFE RENTI AL/PL ATELE T MCV 90 fL 79-97 Not Available [facility] ([facility]) [address] [place], [address], 10/03/2021 06:13:33 10/02/20 21 10/03/2021 CBC WITH DIFFE RENTI AL/PL ATELE T MCH 30.8 pg 26.6-3 3.0 Not Available [facility] ([facility]) [address] [facility], [place], [address], 10/03/2021 06:13:33 10/02/20 21 10/03/2021 CBC WITH DIFFE RENTI AL/PL ATELE T MCHC 34.1 g/dL 31.5-3 5.7 Not Available [facility] ([facility]) [address] [facility], [place], [address], 10/03/2021 06:13:33 10/02/20 21 10/03/2021 CBC WITH DIFFE RENTI AL/PL ATELE T RDW 12.2 % 11.7-1 5.4 Not Available [facility] ([facility]) [address] [place], [address], 10/03/2021 06:13:33 10/02/20 21 10/03/2021 CBC WITH DIFFE RENTI AL/PL ATELE T platelets 215 x10e3 /uL 150-45 0 Not Available [facility] ([facility]) [address], [place], [address], 10/03/2021 06:13:33 10/02/20 21 10/03/2021 CBC WITH DIFFE RENTI AL/PL ATELE T neutrophils 58 % not estab. Not Available [facility] ([facility]) [address] [place], [address], 10/03/2021 06:13:33 10/02/20 21 10/03/2021 CBC WITH DIFFE RENTI AL/PL ATELE T lymphs 32 % not estab. Not Available [facility] ([facility]) [address] [facility], [place], [address], 10/03/2021 06:13:33 10/02/20 21 10/03/2021 CBC WITH DIFFE RENTI AL/PL ATELE T monocytes 8 % not estab. Not Available [facility] ([facility]) [address] [place], [address], 10/03/2021 06:13:33 10/02/20 21 10/03/2021 CBC WITH DIFFE RENTI AL/PL ATELE T eos 1 % not estab. Not Available [facility] ([facility]) [address] [place], [address], 10/03/2021 06:13:33 10/02/20 21 10/03/2021 CBC WITH DIFFE RENTI AL/PL ATELE T basos 1 % not estab. Not Available [facility] ([facility]) [address] [facility], [place], [address], 10/03/2021 06:13:33 10/02/20 21 10/03/2021 CBC WITH DIFFE RENTI AL/PL ATELE T immature cells brim blocker Not Available [facility] ([facility]) [address] [place], [address], 10/03/2021 06:13:33 10/02/20 21 10/03/2021 CBC WITH DIFFE RENTI AL/PL ATELE T neutrophils (absolute) 3.8 x10e3 /uL 1.4-7. 0 Not Available [facility] ([facility]) [address] [place], [address], 10/03/2021 06:13:33 10/02/20 21 10/03/2021 CBC WITH DIFFE RENTI AL/PL ATELE T lymphs (absolute) 2.1 x10e3 /uL 0.7-3. 1 Not Available [facility] ([facility]) [address] [place], [address], 10/03/2021 06:13:33 10/02/20 21 10/03/2021 CBC WITH DIFFE RENTI AL/PL ATELE T monocytes(ab solute) 0.5 x10e3 /uL 0.1-0. 9 Not Available [facility] ([facility]) [address] [facility], [place], [address], 10/03/2021 06:13:33 10/02/20 21 10/03/2021 CBC WITH DIFFE RENTI AL/PL ATELE T eos (absolute) 0.1 x10e3 /uL 0.0-0. 4 Not Available [facility] ([facility]) [address] [facility], [place], [address], 10/03/2021 06:13:33 10/02/20 21 10/03/2021 CBC WITH DIFFE RENTI AL/PL ATELE T baso (absolute) 0.1 x10e3 /uL 0.0-0. 2 Not Available [facility] ([facility]) [address] [facility], [place], [address], 10/03/2021 06:13:33 10/02/20 21 10/03/2021 CBC WITH DIFFE RENTI AL/PL ATELE T immature granulocytes 0 % not estab. Not Available [facility] ([facility]) [address] [facility], [place], [address], 10/03/2021 06:13:33 10/02/20 21 10/03/2021 CBC WITH DIFFE RENTI AL/PL ATELE T immature grans (abs) 0.0 x10e3 /uL 0.0-0. 1 Not Available [facility] ([facility]) [address] [place], [address], 10/03/2021 06:13:33 10/02/20 21 10/03/2021 CBC WITH DIFFE RENTI AL/PL ATELE T NRBC brim blocker Not Available [facility] ([facility]) [address] [facility], [place], [address], 10/03/2021 06:13:33 10/02/20 21 10/03/2021 CBC WITH DIFFE YEIMI AL/PL ELICIA T hematology comments: brim blocker Not Available [facility] ([facility]) [address] [facility], [place], [address], 10/03/2021 06:13:33 10/02/20 21 10/03/2021 TSH+F REE T4 TSH 1.550 uIU/m L 0.450- 4.500 Not Available [facility] ([facility]) [address] [facility], [place], [address], 10/03/2021 06:13:33 10/02/20 21 10/03/2021 TSH+F REE T4 T4,free(dire ct) 0.99 NG/dL 0.82-1 .77 Not Available [facility] ([facility]) [address] [facility], [place], [address], 10/03/2021 06:13:33 10/02/20 21 10/03/2021 CMP14 +EGFR glucose 86 mg/dL 65-99 Not Available [facility] ([facility]) [address] [facility], [place], [address], 10/03/2021 06:13:32 10/02/20 21 10/03/2021 CMP14 +EGFR BUN 12 mg/dL 6-20 Not Available [facility] ([facility]) [address] [place], [address], 10/03/2021 06:13:32 10/02/20 21 10/03/2021 CMP14 +EGFR creatinine 0.79 mg/dL 0.57-1 .00 Not Available [facility] ([facility]) [address] [place], [address], 10/03/2021 06:13:32 10/02/20 21 10/03/2021 CMP14 +EGFR eGFR if nonafricn AM 97 mL/mi n/1.7 3 >59 Not Available [facility] ([facility]) [address] [facility], [place], [address], 10/03/2021 06:13:32 10/02/20 21 10/03/2021 CMP14 +EGFR [...] a race varia ble. Not Available [facility] ([facility]) [address] [facility], [place], [address], 10/03/2021 06:13:32 10/02/20 21 10/03/2021 CMP14 +EGFR BUN/creatini ne ratio 15 9-23 Not Available [facility] ([facility]) [address] [place], [address], 10/03/2021 06:13:32 10/02/20 21 10/03/2021 CMP14 +EGFR sodium 138 mmol/ L 134-14 4 Not Available [facility] ([facility]) [address] [place], [address], 10/03/2021 06:13:32 10/02/20 21 10/03/2021 CMP14 +EGFR potassium 4.9 mmol/ L 3.5-5. 2 Not Available [facility] ([facility]) [address] [place], [address], 10/03/2021 06:13:32 10/02/20 21 10/03/2021 CMP14 +EGFR chloride 104 mmol/ L 96-106 Not Available [facility] ([facility]) [address] [place], [address], 10/03/2021 06:13:32 10/02/20 21 10/03/2021 CMP14 +EGFR carbon dioxide, total 21 mmol/ L 20- Not Available [facility] ([facility]) [address] [facility], [place], [address], 10/03/2021 06:13:32 10/02/2010/03/2021 CMP14 +EGFR calcium 9.4 mg/dL 8.7-10 .2 Not Available [facility] ([facility]) [address] [place], [address], 10/03/2021 06:13:32 10/02/2010/03/2021 CMP14 +EGFR protein, total 6.9 g/dL 6.0-8. 5 Not Available [facility] ([facility]) [address] [place], [address], 10/03/2021 06:13:32 10/02/2010/03/2021 CMP14 +EGFR albumin 4.4 g/dL 3.8-4. 8 Not Available [facility] ([facility]) [address] [place], [address], 10/03/2021 06:13:32 10/02/2010/03/2021 CMP14 +EGFR globulin, total 2.5 g/dL 1.5-4. 5 Not Available [facility] ([facility]) [address] [place], [address], 10/03/2021 06:13:32 10/02/2010/03/2021 CMP14 +EGFR A/G ratio 1.8 1.2-2. 2 Not Available [facility] ([facility]) [address] [place], [address], 10/03/2021 06:13:32 10/02/2010/03/2021 CMP14 +EGFR bilirubin, total 0.5 mg/dL 0.0-1. 2 Not Available [facility] ([facility]) [address] [facility], [place], [address], 10/03/2021 06:13:32 10/02/2010/03/2021 CMP14 +EGFR alkaline phosphatase 64 IU/L 44-121 Ple ase note refer ence inter maik roach e Not Available [facility] ([facility]) [address] [facility], [place], [address], 10/03/2021 06:13:32 10/02/20 21 10/03/2021 CMP14 +EGFR AST (SGOT) 21 IU/L 0-40 Not Available [facility] ([facility]) [address] [facility], [place], [address], 10/03/2021 06:13:32 10/02/20 21 10/03/2021 CMP14 +EGFR ALT (SGPT) 25 IU/L 0-32 Not Available [facility] ([facility]) [address] [facility], [place], [address], 10/03/2021 06:13:32 09/26/2009/27/2023 TSH+F REE T4 TSH 2.21 mIU/L normal Refer ence Range > or = 20 Years 0.40- 4.50 Pregn brandon Range s First trime ster 0.26- 2.66 Secon d trime ster 0.55- 2.73 Third trime ster 0.43- 2.91 Not Available [facility] [address] [place], [address], 09/27/2023 06:17:17 09/26/2009/27/2023 TSH+F REE T4 T4, free 1.0 NG/dL 0.8-1. 8 normal Not Available [facility] [address] [place], [address], 09/27/2023 06:17:17 09/26/2009/27/2023 LIPID PANEL WITH RATIO S cholesterol, total 213 mg/dL <200 high Not Available [facility] [address] [place] [address] [place], [address], 09/27/2023 06:17:18 09/26/20 23 09/27/2023 LIPID PANEL WITH RATIO S HDL cholesterol 40 mg/dL > or = 50 low Not Available [facility] [address] [address] [place], [address], 09/27/2023 06:17:18 09/26/20 23 09/27/2023 LIPID PANEL WITH RATIO S triglyceride s 163 mg/dL <150 high Not Available [facility] [address] [address] [place], [address], 09/27/2023 06:17:18 09/26/20 23 09/27/2023 LIPID PANEL WITH RATIO S LDL-choleste rol 143 mg/dL _(shannan c) high Refer ence range : <100 Isaac able range <100 mg/dL for prima ry preve ntion ; <70 mg/dL for patie nts with CHD or diabe tic patie nts with > or = 2 CHD risk facto rs. LDL-C is now calcu lated using the Nahomi huerta-[facility] rehanu arnaldo n, which is a valid ated novel macarioo d carmina de la garza r accur acy than the Fried aida equat ion in the estim ation of LDL-C . Nahomi huerta SS et al. GABRIELLE. 2013; 310(1 9): 2061- 2068 (http ://ed ucati on.Qu Yu Buzzoek. com/f aq/FA Q164) Not Available [facility] [address] [place], [address], 09/27/2023 06:17:18 09/26/20 23 09/27/2023 LIPID PANEL WITH RATIO S chol/HDLC ratio 5.3 (calc ) <5.0 high Not Available [facility] [address] [place], [address], 09/27/2023 06:17:18 09/26/2009/27/2023 LIPID PANEL WITH RATIO S LDL/HDL ratio 3.6 (calc ) Below avera ge Risk: <2.34 Theresa ge Risk: 2.35- 4.12 Moder ate Risk: 4.13- 5.56 High Risk: >5.57 Not Available [address], [address], 09/27/2023 06:17:18 09/26/2009/27/2023 LIPID PANEL WITH RATIO S non HDL cholesterol 173 mg/dL _(shannan c) <130 high For patie nts with diabe olvin plus 1 major ASCVD risk facto r, treat ing to a non-H DL-C goal of <100 mg/dL (LDL- C of <70 mg/dL ) is christopher blanchard peutkarolina c optio n. Not Available [address], [address], 09/27/2023 06:17:18 09/26/2009/27/2023 COMPR EHENS MIKYE METAB OLIC PANEL glucose 90 mg/dL 65-99 normal Fasti ng refer ence inter maik Not Available [address] [place], [address], 09/27/2023 06:17:19 09/26/2009/27/2023 COMPR EHENS MIKEY METAB OLIC PANEL urea nitrogen (BUN) 13 mg/dL 7-25 normal Not Available [address], [address], 09/27/2023 06:17:19 09/26/2009/27/2023 COMPR EHENS MIKEY METAB OLIC PANEL creatinine 0.75 mg/dL 0.50-0 .97 normal Not Available [address] [place], [address], 09/27/2023 06:17:19 09/26/2009/27/2023 COMPR EHENS MIKEY METAB OLIC PANEL eGFR 104 mL/mi n/1.7 3m2 > or = 60 normal Not Available [address], [address], 09/27/2023 06:17:19 09/26/20 23 09/27/2023 COMPR EHENS MIKEY METAB OLIC PANEL BUN/creatini ne ratio SEE NOTE: (calc ) 6-22 Not Repor rolan: BUN and Creat inine are withi n refer ence range . Not Available [address], [address], 09/27/2023 06:17:19 09/26/2009/27/2023 COMPR EHENS MIKEY METAB OLIC PANEL sodium 139 mmol/ L 135-14 6 normal Not Available [address], [address], 09/27/2023 06:17:19 09/26/20 23 09/27/2023 COMPR EHENS MIKEY METAB OLIC PANEL potassium 4.7 mmol/ L 3.5-5. 3 normal Not Available [address], [address], 09/27/2023 06:17:19 09/26/20 23 09/27/2023 COMPR EHENS MIKEY METAB OLIC PANEL chloride 103 mmol/ L 98-110 normal Not Available [address], [address], 09/27/2023 06:17:19 09/26/20 23 09/27/2023 COMPR EHENS MIKEY METAB OLIC PANEL carbon dioxide 27 mmol/ L 20-32 normal Not Available [address], [address], 09/27/2023 06:17:19 09/26/20 23 09/27/2023 COMPR EHENS MIKEY METAB OLIC PANEL calcium 9.7 mg/dL 8.6-10 .2 normal Not Available [address], [address], 09/27/2023 06:17:19 09/26/2009/27/2023 COMPR EHENS MIKEY METAB OLIC PANEL protein, total 6.9 g/dL 6.1-8. 1 normal Not Available [address], [address], 09/27/2023 06:17:19 09/26/2009/27/2023 COMPR EHENS MIKEY METAB OLIC PANEL albumin 4.5 g/dL 3.6-5. 1 normal Not Available [address], [address], 09/27/2023 06:17:19 09/26/2009/27/2023 COMPR EHENS MIKEY METAB OLIC PANEL globulin 2.4 g/dL_ (calc ) 1.9-3. 7 normal Not Available [address], [address], 09/27/2023 06:17:19 09/26/2009/27/2023 COMPR EHENS MIKEY METAB OLIC PANEL albumin/glob ulin ratio 1.9 (calc ) 1.0-2. 5 normal Not Available [address], [address], 09/27/2023 06:17:19 09/26/2009/27/2023 COMPR EHENS MIKEY METAB OLIC PANEL bilirubin, total 0.5 mg/dL 0.2-1. 2 normal Not Available [address], [address], 09/27/2023 06:17:19 09/26/2009/27/2023 COMPR EHENS MIKEY METAB OLIC PANEL alkaline phosphatase 67 U/L 31-125 normal Not Available [address], [address], 09/27/2023 06:17:19 09/26/20 23 09/27/2023 COMPR EHENS MIKEY METAB OLIC PANEL AST 20 U/L 10-30 normal Not Available [facility] [address] [place], [address], 09/27/2023 06:17:19 09/26/20 23 09/27/2023 COMPR EHENS MIKEY METAB OLIC PANEL ALT 19 U/L 6-29 normal Not Available [facility] [address] [address] [place], [address], 09/27/2023 06:17:19 09/26/20 23 09/27/2023 HEMOG LOBIN A1C hemoglobin A1C 4.9 %_of_ total _HGB <5.7 normal For the purpo se of screkevin woodall for the prese nce of diabe olvin: <5.7% Consi stent with the absen ce of diabe olvin 5.7-6 .4% Consi stent with incre ased risk for diabe olvin (pred iabet es) > or =6.5% Consi stent with diabe olvin This assay resul t is consi stent with a decre ased risk of diabe olvin. Curre ntly, no conse nsus exist s zaki mauricio use of hemog lobin A1c for [...] Care in Diabe olvin(A DA). Not Available [facility] [address] [place], [address], 09/27/2023 06:17:20 09/26/20 23 09/27/2023 T3, FREE T3, free 3.2 pg/mL 2.3-4. 2 normal Not Available [facility] [place], [address], 09/27/2023 06:17:21 09/26/20 23 09/27/2023 CBC (INCL UDES DIFF/ PLT) white blood cell count 5.9 thous and/u L 3.8-10 .8 normal Not Available [address], [address], 09/27/2023 06:17:22 09/26/20 23 09/27/2023 CBC (INCL UDES DIFF/ PLT) red blood cell count 4.82 vivian on/uL 3.80-5 .10 normal Not Available [address], [address], 09/27/2023 06:17:22 09/26/20 23 09/27/2023 CBC (INCL UDES DIFF/ PLT) hemoglobin 14.4 g/dL 11.7-1 5.5 normal Not Available [address], [address], 09/27/2023 06:17:22 09/26/20 23 09/27/2023 CBC (INCL UDES DIFF/ PLT) hematocrit 43.1 % 35.0-4 5.0 normal Not Available [address], [address], 09/27/2023 06:17:22 09/26/20 23 09/27/2023 CBC (INCL UDES DIFF/ PLT) MCV 89.4 fL 80.0-1 00.0 normal Not Available [address], [address], 09/27/2023 06:17:22 09/26/20 23 09/27/2023 CBC (INCL UDES DIFF/ PLT) MCH 29.9 pg 27.0-3 3.0 normal Not Available [facility] [address], [address], 09/27/2023 06:17:22 09/26/20 23 09/27/2023 CBC (INCL UDES DIFF/ PLT) MCHC 33.4 g/dL 32.0-3 6.0 normal Not Available [address], [address], 09/27/2023 06:17:22 09/26/20 23 09/27/2023 CBC (INCL UDES DIFF/ PLT) RDW 12.3 % 11.0-1 5.0 normal Not Available [address], [address], 09/27/2023 06:17:22 09/26/20 23 09/27/2023 CBC (INCL UDES DIFF/ PLT) platelet count 251 thous and/u L 140-40 0 normal Not Available [address], [address], 09/27/2023 06:17:22 09/26/20 23 09/27/2023 CBC (INCL UDES DIFF/ PLT) MPV 11.4 fL 7.5-12 .5 normal Not Available [address], [address], 09/27/2023 06:17:22 09/26/20 23 09/27/2023 CBC (INCL UDES DIFF/ PLT) absolute neutrophils 3168 cells /uL 1500-7 800 normal Not Available [address], [address], 09/27/2023 06:17:22 09/26/20 23 09/27/2023 CBC (INCL UDES DIFF/ PLT) absolute lymphocytes 2159 cells /uL 850-39 00 normal Not Available [address], [address], 09/27/2023 06:17:22 09/26/20 23 09/27/2023 CBC (INCL UDES DIFF/ PLT) absolute monocytes 425 cells /uL 200-95 0 normal Not Available [address], [address], 09/27/2023 06:17:22 09/26/20 23 09/27/2023 CBC (INCL UDES DIFF/ PLT) absolute eosinophils 89 cells /uL 15-500 normal Not Available [address], [address], 09/27/2023 06:17:22 09/26/20 23 09/27/2023 CBC (INCL UDES DIFF/ PLT) absolute basophils 59 cells /uL 0-200 normal Not Available [facility] [address], [address], 09/27/2023 06:17:22 09/26/20 23 09/27/2023 CBC (INCL UDES DIFF/ PLT) neutrophils 53.7 % normal Not Available [facility] [address], [address], 09/27/2023 06:17:22 09/26/20 23 09/27/2023 CBC (INCL UDES DIFF/ PLT) lymphocytes 36.6 % normal Not Available [address], [address], 09/27/2023 06:17:22 09/26/20 23 09/27/2023 CBC (INCL UDES DIFF/ PLT) monocytes 7.2 % normal Not Available [facility] [address], [address], 09/27/2023 06:17:22 09/26/20 23 09/27/2023 CBC (INCL UDES DIFF/ PLT) eosinophils 1.5 % normal Not Available [facility] [address], [address], 09/27/2023 06:17:22 09/26/20 23 09/27/2023 CBC (INCL UDES DIFF/ PLT) basophils 1.0 % normal Not Available [facility] [address] [place], [address], 09/27/2023 06:17:22 09/06/2009/05/2023 US, lower extre mity, nonva scula r, limit ed No observ ation record ed. [email or web address] [facility] [address], [place], [address], 09/12/2023 14:30:19 10/18/2010/17/2023 MRI, lower leg, w/wo contr ast No observ ation record ed. [email or web address] [facility] [address], [place], [address], 10/25/2023 12:31:21 Result Notes None recorded. Problems Name Problem SNOMED Code Status Onset Date Resolution Date Notes Provider Name and Address Organization Details Recorded Time Right flank pain 946180761 Active Not Available [facility] 3 17:13:38 Biliary dyskinesia 929570884 Active Not Available [facility] 3 17:13:38 Gastroesop hageal reflux disease 626282603 Active [facility] Available [facility] 3 17:13:38 Mixed hyperlipid emia 083792006 Active Not Available [facility] 3 17:13:38 Pain in thoracic spine 225537507 Active Not Available [facility] 3 17:13:38 Right upper quadrant pain 668627109 Active Not Available [facility] 3 17:13:38 Hypertrigl yceridemia 794473681 Active [facility] Available [facility] 3 17:13:38 Atopic dermatitis of scalp 699741299 Active Not Available [facility] 3 17:13:38 Hypothyroi dism 97452068 Active 2021 Not Available [facility] 3 17:13:38 Urinary tract infectious disease 28670497 Active Not Available [facility] 3 17:13:38 Attention deficit hyperactiv ity disorder 358831271 Active 2022 SELENE [facility]aires [address], [place], [address] , [employer] [facility] 3 11:54:32 Nodule of subcutaneo us tissue of left lower limb 6301733630801 9105 Active 2022 SELENE Baires [address], [place], [address] , [email or web address] [facility] 3 16:03:19 Perioral dermatitis 287031140 Active 2022 SELENE Baires [address], [place], [address] , [email or web address] [facility] 3 16:03:49 Abnormal findings on diagnostic imaging of limbs 358255691 Active 2022 SELENE Baires [address], [place], [address] , [employer] [facility] 3 13:59:26 Varicose veins of left lower limb 4903480628497 9109 Active 2023 SELENE Baires [address], [place] [place], [address] , [employer] [facility] 4 23:19:46 Varicose veins of lower extremity [id number] Active 2023 SELENE Baires [address], [address], [place], [address] , [employer] [facility] 4 23:20:16 Problem Notes None recorded. Procedures Surgical History Date Name Laterality Status Provider Name and Address Organization Details Recorded Time cauterization of lesion of cervix completed Not Available [facility] 01/19/2023 17:12:47 Tonsillectomy completed Not Available [facility] 01/19/2023 17:12:47 Oral surgery procedure completed Not Available [facility] 01/19/2023 17:12:47 Cholecystectomy completed Not Available [facility] 01/19/2023 17:12:47 Imaging Results None recorded. Procedure Notes None recorded. Medical Equipment None Reported. Allergies Allergen ID Allergen Name Allergen Category Reaction Reaction Severity Criticality Documentation Date Start Date Code Code System Note Provider Name and Address Organization Details Recorded Time 46569 Substance with sulfonami de structure and antibacte rial mechanism of action (substanc e) medicatio n hives Not available Not available 01/19/2023 12839 8003 SNOMED Not Available [facility] 3 17:14:58 46703 oxycodone medicatio n itching Not available Not available 01/19/2023 7804 RxNorm Not Available [facility] 3 17:14:58 Medications Name Sig Start Date [...] Available Not Available Gonal-F RFF Redi-Ject 900 unit/1.44 mL subcutaneou s pen injector 10/27 completed Not Available Not Available Not [...] 3 165.1 cm 97.8 [degF] 31.8 kg/m2 95676.1 4 g 16 /min 98 % 98 % 96 /min 118 mm[Hg] 78 mm[Hg] HARDEEP Galvan [place] [employer] [facility] [employer] 3 11:09:06 Date Recorded Body mass index (BMI) Provider Name and Address Organization Details Last Updated DateTime 08/31/2023 29.6 kg/m2 SELENE Baires [address] [facility], [facility] [address], [place], [address], [place] [employer] [facility] [employer] 09/20/2023 23:13:40 Date Recorded Body height Body weight Body temperature Heart rate Oxygen saturation Oxygen saturation in Arterial blood by Pulse oximetry Systolic blood pressure Diastolic blood pressure Provider Name and Address Organization Details Last Updated DateTime 3 165.1 cm 30501.4 4 g 96.7 [degF] 99 /min 98 % 98 % 118 mm[Hg] 78 mm[Hg] Nina Barcenas RN [facility] [employer] [facility] 3 15:46:44 Date Recorded Body mass index (BMI) Body height Oxygen saturation Oxygen saturation in Arterial blood by Pulse oximetry Heart rate Body temperature Body weight Systolic blood pressure Diastolic blood pressure Provider Name and Address Organization Details Last Updated DateTime 1 29 kg/m2 165.1 cm 98 % 98 % 90 /min 98 [degF] 39573.7 9 g 122 mm[Hg] 82 mm[Hg] Not Available [facility] 3 17:13:18 Date Recorded Body height Oxygen saturation Oxygen saturation in Arterial blood by Pulse oximetry Heart rate Respiratory rate Body temperature Body weight Systolic blood pressure Diastolic blood pressure Provider Name and Address Organization Details Last Updated DateTime 2 165.1 cm 98 % 98 % 97 /min 16 /min 97.3 [degF] 38120.8 1 g 122 mm[Hg] 80 mm[Hg] Not Available [facility] 3 17:13:18 Date Recorded Body mass index (BMI) Provider Name and Address Organization Details Last Updated DateTime 09/21/2023 29.3 kg/m2 SELENE Baires [address] [place] [address], [facility] [address], [place], [address], [place] [employer] [facility] [employer] 10/20/2023 23:36:46 Date Recorded Body height Body weight Body temperature Heart rate Oxygen saturation Oxygen saturation in Arterial blood by Pulse oximetry Systolic blood pressure Diastolic blood pressure Provider Name and Address Organization Details Last Updated DateTime 3 165.1 cm 36027.2 6 g 97.3 [degF] 88 /min 99 % 99 % 122 mm[Hg] 76 mm[Hg] Nina Barcenas RN [place] [employer] [facility] [employer] 3 16:32:34 Social History Question Answer Notes LastModified by Organizat ion Details LastModified Time Tobacco Smoking Status Never Smoker HARDEEP Galvan null, [facility] [employer] 08/31/2023 15:43:07 Do You Have An Advance Directive? Yes [id number] Information not available 01/19/2023 If You Are , What Was Your Level Of Alcohol Consumption Prior To ? None [email or web address] Information not available 08/31/2023 Do You Wear A Helmet When Biking? Yes [email or web address] Information not available 08/31/2023 What Is Your Level Of Caffeine Consumption? Occasional [id number] Information not available 01/19/2023 In The 14 Days Before Symptom Onset, Have You Had Close Contact With A Laboratory-confirm ed COVID-19 While That Case Was Ill? No [email or web address] Information n ot available 08/31/2023 In The 14 Days Before Symptom Onset, Have You Had Close Contact With A Person Who Is Under Investigation For COVID-19 While That Person Was Ill? No [email or web address] Information not available 08/31/2023 What Type Of Diet Are You Following? REGULAR [id number] Information not available 01/19/2023 What Is The Highest Grade Or Level Of School You Have Completed Or The Highest Degree You Have Received? [id number] [email or web address] Information not available 08/31/2023 Are There Any Guns Present In Your Home? Yes [email or web address] Information not available 08/31/2023 Do You Use Insect Repellent Routinely? Yes [email or web address] Information not available 08/31/2023 Do You Have A Medical Power Of Canned Food Reconditioning Inspector? No [email or web address] Information not available 08/31/2023 What Is Your Relationship Status? [id number] Information not available 01/19/2023 Do You Use Your Seat Belt Or Car Seat Routinely? Yes [email or web address] Information not available 08/31/2023 Do You Have Smoke And Carbon Monoxide Detectors In Your Home? Yes Information not available 08/31/2023 Are You Passively Exposed To Smoke? No [email or web address] Information no t available 08/31/2023 Are There Any Smokers In Your House? No [email or web address] Information not available 08/31/2023 Do You Use Sunscreen Routinely? Yes Information not available 08/31/2023 Has Tobacco Cessation Counseling Been Provided? No [email or web address] Information not available 08/31/2023 Have You Recently Traveled Abroad? No [email or web address] Information not available 08/31/2023 Do You Have Any Dietary Restrictions? No [email or web address] Information not available 08/31/2023 Sex: Unknown Functional Status Question Answer Note LastModified by Organizat ion Details LastModified Time Do you use any illicit or recreational drugs? No [email or web address] Information not available 08/31/2023 Do you or have you ever used any other forms of tobacco or nicotine? No [email or web address] Information not available 08/31/2023 What is your level of alcohol consumption? None [id number] 26 Information not available 01/19/2023 Are you currently employed? Yes [email or web address] Information not available 08/31/2023 What is your occupation? teacher [email or web address] Information not available 08/31/2023 What is your exercise level? Moderate [id number] 26 Information not available 01/19/2023 Mental Status Question Answer Note LastModified by Organization D etails LastModified Time Do you feel stressed (tense, restless, nervous, or anxious, or unable to sleep at night)? [id number] Information not available 08/31/2023 Family History Relationship Description Onset Age of this Age Resolved Age Notes LastModified by Organization Details LastModified Time Father Hypercholest erolemia [id number] Not available 01/19/2023 17:12:47 Medical History Condition Response HEARTBURN / REFLUX Y HIGH CHOLESTEROL / HYPERLIPIDEMIA Y ASTHMA Y ANXIETY DISORDER Y Gynecological History Statement/Question Response Menses Monthly Y Current Control Method None Sexually Active? Y Obstetrics History GPAL:G 2 P 0 0 0 1 Type Value Living 1 Total 2 Immunizations Vaccine Type Date Status Note Provider Nam e and Address Organization Details Recorded Time TST-PPD intradermal 5 completed Not Available [facility] 01/19/2023 17:14:56 Past Encounters Encounter ID Performer Location Encounter Start Date Encounter Closed Date Diagnosis/Indication Diagnosis SNOMED-CT Code Diagnosis ICD10 Code Diagnosis Note [id number] SELENE Baires [facility] [place] [address] [place] [address] 09/21/2021 00:00:00 10/11/2021 14:43:10 [id number] SELENE Baires [facility] [place] [facility] [place] [address] [place] [address] 09/21/2022 00:00:00 09/21/2022 16:55:34 [id number] SELENE Baires [facility] [place] [facility] [place] [address] [place] [address] 05/03/2023 10:53:56 05/03/2023 12:25:40 Attention deficit hyperactivity disorder 890032401 F90.9 start vyvanse 20mg daily. f/u 1 month [id number] SELENE Baires [facility] [place] [facility] [place] [address] [place] [address] 08/31/2023 15:42:58 08/31/2023 16:07:51 Nodule of subcutaneous tissue of left lower limb [id number] 2848246 R22.42 check u/s LLE nonvascula r. may require MRI testing if the u/s is not sensitive Perioral dermatitis 2387 69074 L71.0 rx for triamcinol one cream 0.15 bid x 7-10 days only [id number] SELENE Baires [facility] [place] [address] [place] [address] 09/21/2023 16:22:31 09/21/2023 16:49:27 Adult health examination 874696280 Z00.01 well exam completed. labs ordered. Mixed hyperlipidemia 267 680104 E78.2 fasting lipids due. Hypothyroidism 66265109 E03.9 due for TFTs Diabetes m ellitus screening 013799592 Z13.1 Long-term drug therapy 454015389 Z79.899 Nodule of subcutaneous tissue of left lower limb 6120788477 8152127 R22.42 u/s did not reveal a diagnosis as to the 3 separate nodular areas on the right medial tibialis anterior region. will need to proceed with MRI RLE w/wo contrast to evaluate Attention deficit hyperactivity disorder 867492139 F90.9 stable on vyvanase 30mg daily Health Concerns Section Related Observation LastModified by Organization Detai ls LastModified Time None Recorded Concern Status LastModified by Organization Details LastModified Time None Recorded Advance Directives Directive Y: Payers Insurance Date Sequence Insurance Name Policy Number Policy Fraga Covered Member ID Fraga Member ID Guarantor Name 08/10/[address] [facility] Odalys Raymond SELF SELF Odalys Raymond 08/10/2024 1 [place] [id number] Odalys Raymond [id number] Odalys Raymond Notes Date Note Type Note Provider Name [...] skin changes; no hair changes Not Available [facility] 10/11/2021 14:43:10 09/21/20 22 text/ht ml HyperlipidemiaReported [...] any longer and feels fine. Not Available [facility] 09/21/2022 16:55:34 05/03/20 23 text/ht ml Adult ADHDReported bypatient.ADHD Quality:unable to [...] talking;difficulty with quiet tasks/activities SELENE Baires [address], [place] [address], [place], [address], [facility] [employer] 05/20/2023 23:03:06 08/31/20 23 text/ht ml pt c/o knot on woodard region near woodard bone. soft tissue nodule type feeling. no trauma, or fall . no skin discoloration. no pain. SELENE Baires [address], [address], [place], [address], [facility] [employer] 09/20/2023 23:17:44 09/21/20 23 text/ht ml HyperlipidemiaReported [...] fatigue; no throat pain wellness SELENE Baires [address] [place] [address], [address], [place] [facility] 10/20/2023 23:39:11 OBGyn Episode No OBEpisode recorded.
--- OUTSIDE RECORDS SUMMARY | 2025-05-22 11:14 | XMS_ITS | Referral Summary ---
Author Organization [facility] Address [address] [place] [address] Care Team Providers Care Diagram Clerk Name Role Phone Maye Chen Primary Care Pr ovider Allergies Active Allergy Reactions Criticality Noted Date Comments Sulfa (Sulfonamide Antibiotics) Hives Reaction: HIVES, Medications lisdexamfetamin e (VYVANSE) 30 mg capsule Take 1 capsule (30 mg total) by mouth every morning Active Active Problems Problem Noted Date Diagnosed Date Lump of skin of right lower extremity 12/21/2023 Assessment & Plan (12/21/2023 9:06 AM VP ANCILLARY): Small bumps or lumps can be palpated [...] on file Legal Sex Female 11:58 AM VP ANCILLARY Gender Identity Not on file Sexual Orientation Not on file Last Filed Vital Signs Vital Sign Reading Time Taken Comments Blood Pressure 127/93 12/21/2023 8:51 AM VP ANCILLARY Pulse 87 12/21/2023 8:51 AM VP ANCILLARY Temperature - - Respiratory Rate - - Oxygen Saturation 100% 12/21/2023 8:51 AM VP ANCILLARY Inhaled Oxygen Concentration - - Weight 82.1 kg (181 lb) 08/24/2017 10:35 AM CDT Height 165.1 cm (5' 5) 08/24/2017 10:35 AM CDT Body Mass Index 30.12 08/24/2017 10:35 AM CDT Plan of Treatment Not on file Insurance [employer] [place] Care Teams Diagram Clerk Relationship Specialty Start Date End Date aMye Chen PA PCP - General 07/23/17
--- OUTSIDE RECORDS SUMMARY | 2025-05-22 11:14 | XMS_ITS | Clinical Summary ---
Author Organization [facility] Address [address] [place] [address] Care Team Providers Care Radiology Administrator Name Role Phone Maye Chen Primary Care Pr ovider Allergies Active Allergy Reactions Criticality Noted Date Comments Sulfa (Sulfonamide Antibiotics) Hives Reaction: HIVES, Medications lisdexamfetamin e (VYVANSE) 30 mg capsule Take 1 capsule (30 mg total) by mouth every morning Active Active Problems Problem Noted Date Diagnosed Date Lump of skin of right lower extremity 12/21/2023 Assessment & Plan (12/21/2023 9:06 AM MULTIMEDIA JOURNALIST): Small bumps or lumps can be palpated [...] Comments TONSILLECTOMY 1995 Tonsillectomy TONSILLECTOMY 1994 Tonsillectomy ID TONSILLECTOMY & ADENOIDEC MAIK <AGE 12 Tonsillectomy With Adenoidectomy - 1995 (Added by TW Conv) ID CHOLECYSTECTOMY Cholecystectomy - laparascopic [facility], 03/2016 (Added [...] on file Legal Sex Female 11:58 AM MULTIMEDIA JOURNALIST Gender Identity Not on file Sexual Orientation Not on file Obstetrics History Last Filed Vital Signs Vital Sign Reading Time Taken Comments Blood Pressure 127/93 12/21/2023 8:51 AM MULTIMEDIA JOURNALIST Pulse 87 12/21/2023 8:51 AM MULTIMEDIA JOURNALIST Temperature - - Respiratory Rate - - Oxygen Saturation 100% 12/21/2023 8:51 AM MULTIMEDIA JOURNALIST Inhaled Oxygen Concentration - - Weight 82.1 [...] [facility] Care Teams Radiology Administrator Relationship Specialty Start Date End Date Maye Chen PA PCP - General 07/23/17
--- OUTSIDE RECORDS SUMMARY | 2025-05-22 11:14 | XMS_ITS | Clinical Summary ---
Author Organization [facility] Address [address] [place] [address] Phone Care Team Providers Care Thermo Processor Name Role Phone Maye Chen Primary Care Provider [phone] Allergies Active Allergy Reactions Criticality Noted Date [...] TAKE 1 TABLET(25 MCG) BY MOUTH DAILY EDGE POLISHER 30 Tablet 8 Active Active Problems No [...] on file Legal Sex Female 4:21 PM IMMUNOHEMATOLOGIST Gender Identity Not on file Sexual Orientation Not on file Last Filed Vital Signs Vital Sign Reading Time Taken Comments Blood Pressure 118/80 10/01/2019 10:23 AM IMMUNOHEMATOLOGIST Pulse 93 08/27/2019 1:54 PM CDT Temperature 36.6 C (97.9 F) 08/27/2019 1:36 PM CDT Respiratory Rate 17 08/27/2019 1:54 PM CDT Oxygen Saturation 98% 08/27/2019 1:54 PM CDT Inhaled Oxygen Concentration - - Weight 83.5 kg (184 lb) 10/01/2019 10:23 AM IMMUNOHEMATOLOGIST Height 165.1 cm (5' 5) 10/01/2019 10:23 AM IMMUNOHEMATOLOGIST Body Mass Index 30.62 10/01/2019 10:23 AM IMMUNOHEMATOLOGIST Plan of Treatment Health Maintenance Due Date Last Done Comments DTAP/TDAP/TD VACCINES (1 - Tdap) 2004 HEPATITIS B VACCINES (1 of 3 - 19+ 3-dose series) 2004 HPV/Cotest (21-29) 2006 CERVICAL CANCER SCREENING 2015 HPV/Cotest (30-65) 2015 PAP SMEAR 2015 BREAST CANCER SCREENING 2025 INFLUENZA VACCINE (#1) 2025 HPV VACCINES Aged Out No longer eligi ble based on patient's age to complete this topic Medical Devices Implanted Type Area Plant Pathologist Device Identifier Shelf Expiration Date Model / Serial / Lot Barrier Seprafilm 5x6in [id number] - [id number] Implanted:Qty : 1 on 02/10/2018 by Farhad Burks MD at [facility] Adhesion Barrier N/A: Abdomen [employer] [id number] 12/21/2019 [id number] / / [id number] Description:soaked in 200ml of saline and 100mg solu-cortef Insurance BS BLUE ACCESS/TRUE BLUE PPO RX [employer] Member Subscriber Plan / Payer (Ef fective for All Dates) Name:Odalys Raymond Relation to Subscriber:Self Name:Odalys Raymond Subscriber ID:Not on file Payer ID:Not on file Group ID:[facility] Type:RX Commercial Address: [address] Advance Directives For more information, please contact: [phone] * Full Code (Latest Code Status on File) Date Activated Date Inactivated Comments 08/27/2019 1:35 PM 08/27/2019 4:14 PM * Full Code Date Activated Date Inactivated Comments 02/10/2018 4:26 PM 02/11/2018 5:34 AM * Full Code Date Activated Date Inactivated Comments 02/10/2018 10:48 AM 02/10/2018 4:26 PM Care Teams Thermo Processor Relationship Specialty Start Date End Date Maye Chen PA PCP - General Physician Hooker Operator 12/26/17
--- OUTSIDE RECORDS SUMMARY | 2025-05-22 11:15 | XMS_ITS | Clinical Summary ---
Author Organization [facility] Address [address] [facility] [place] [address] Care Team Providers Care Billing Associate Name Role Phone Unavailable Primary Care Provider Unavailabl e Source Comments [facility],non-owned Affiliates and Associated Physician Practices is amultiple site organization consisting of ambulatory clinics and hospital sitesin [place], [place], [place] and [place]. This disclosure is being madepursuant to the Care Everywhere program and may not contain all information available regarding this patient. Last updated 18.[facility] Allergies Active Allergy Reactions Criticality Noted Date [...] on file Legal Sex Female 8:58 PM CERTIFIED SURGICAL TECH/FIRST ASSISTANT Gender Identity Not on file Sexual Orientation Not on file Last Filed Vital Signs Vital Sign Reading Time Taken Comments Blood Pressure 118/70 10/11/2020 10:32 AM CERTIFIED SURGICAL TECH/FIRST ASSISTANT Pulse 76 10/11/2020 10:32 AM CERTIFIED SURGICAL TECH/FIRST ASSISTANT Temperature 37 C (98.6 F) 10/11/2020 10:32 AM CERTIFIED SURGICAL TECH/FIRST ASSISTANT Respiratory Rate 16 10/11/2020 10:32 AM CERTIFIED SURGICAL TECH/FIRST ASSISTANT Oxygen Saturation 97% 10/11/2020 10:32 AM CERTIFIED SURGICAL TECH/FIRST ASSISTANT Inhaled Oxygen Concentration - - Weight 77.1 kg (170 lb) 10/11/2020 10:32 AM CERTIFIED SURGICAL TECH/FIRST ASSISTANT Height 165.1 cm (5' 5) 10/11/2020 10:32 AM CERTIFIED SURGICAL TECH/FIRST ASSISTANT Body Mass Index 28.29 10/11/2020 10:32 AM CERTIFIED SURGICAL TECH/FIRST ASSISTANT Plan of Treatment Health Maintenance Due Date [...] patient's age to complete this topic Insurance [facility] Address: [facility] [id number] [place] [address]
--- OUTSIDE RECORDS SUMMARY | 2025-05-22 11:15 | XMS_ITS | Clinical Summary ---
Author Organization [facility] Address [address] [place] [address] Phone Care Team Providers Care Assistant Head Cashier Name Role Phone Maye Chen Primary Care Provider [phone] Cydney Beavers MD Unavailable [phone] Allergies Active Allergy Reactions Criticality Noted Date [...] age to complete this topic Care Teams Assistant Head Cashier Relationship Specialty Start Date End Date Maye Chen PA PCP - General Family Medicine 03/03/16 Cydney Beavers MD General Surgery 03/05/16
== END 2025-05-22 10:59 | disposition home or self-care (01) ==
LOC: ANHIMG 11:03
PROVIDERS: PCP Physician Assistant; Visit Provider Obstetrics & Gynecology Gynecology
DX: R92.8 Other abnormal and inconclusive findings on diagnostic imaging of breast (principal)
CPT/HCPCS: 77061; 77065; G0279